=== PATIENT | female | born 1935 | race Caucasian/White ===

== ENCOUNTER 2017-04-15 07:58 | Outpatient (RCR) | payer MEDICARE | END 2017-06-16 | disposition home or self-care (01) | LOC: CARD 07:58 | PROVIDERS: ATTEND Internal Medicine Interventional Cardiology | DX: I48.91 Unspecified atrial fibrillation (principal) | CPT/HCPCS: 93270 ==

== ENCOUNTER 2017-06-04 08:46 | Day surgery (SDC) | payer MEDICARE ==
[~2017-06-04] VITALS: Ht 165.1 cm; Wt 56.7 kg
--- OUTSIDE RECORDS SUMMARY | 2017-06-04 08:54 | XMS REPORT ---
Author VILLA Lipscomb [facility] eClinicalWorks Address Unknown Phone Unavailable Care Team Providers Care Director [employer] Name Role Phone VILLA YOST CP Unavailable Allergies No Known Allergies Problems Problem Type Condition Code Onset Dates Condition Status Assessment Pain in right shoulder M25.511 Active Problem Hypothyroidism, unspecified type E03.9 Active Medications No Known Medications Procedures Procedure Coding System Code Date THERAPEUTIC EXERCISES CPT-4 24847 May 14, 2016 MANUAL THERAPY CPT-4 33817 May 14, 2016 PT EVALUATION CPT-4 35209 May 14, 2016 Results No Known Results Summary Purpose eClinicalWorks Submission
--- OUTSIDE RECORDS SUMMARY | 2017-06-04 08:54 | XMS REPORT ---
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 Active Problem Hypothyroidism, unspecified type E03.9 Active Problem Atrial fibrillation, unspecified type I48.91 Active Problem Hypercholesterolemia E78.00 Active Problem Gastroesophageal reflux disease without esophagitis K21.9 Active Problem Anxiety F41.9 Active Problem Osteoarthritis, unspecified osteoarthritis type, unspecified site M19.90 Active Problem Primary insomnia F51.01 Active Problem Essential hypertension I10 Active Assessment Functional diarrhea K59.1 Active Assessment Osteoarthritis, unspecified osteoarthritis type, unspecified site M19.90 Active Assessment Primary insomnia F51.01 Active Assessment Hypercholesterolemia E78.00 Active Assessment Anxiety F41.9 Active Assessment Atrial fibrillation, unspecified type I48.91 Active Assessment Essential hypertension I10 Active Assessment Gastroesophageal reflux disease without esophagitis K21.9 Active Medications Medication Code System Code Instructions Start Date End Date Status Dosage Ambien [facility] [address]-07 10 MG Orally Once a day 1 tablet at bedtime as needed Pramipexole Dihydrochloride [facility] [address]-56 0.5 MG Orally Once a day 1 tablet before bedtime Probiotic [facility] 6[address]28-[address]35 not defined Lorazepam [facility] [address]-06 1 MG Orally Once a day 1/2 tablet Vitamin D-3 [facility] 59326[address] 1000 UNIT Orally Once a day 1 capsule Amiodarone HCl [facility] [address]-04 200 MG Orally Once a day 1 tablet Pepcid [facility] [address]-21 40 MG Orally Once a day 1 tablet Tramadol HCl [facility] [address]-33 50 mg Orally 3 times a day not defined Magnesium [facility] [address]52-46459 500 MG Orally Once a day 1 tablet with a meal Calcium [facility] 60698-70334 600-200 MG-UNIT Orally not defined Lisinopril [facility] [address]-05 20 MG Orally BID 1 tablet Lipitor [facility] [address]-34 20 MG Orally Once a day 1 tablet Warfarin Sodium [facility] [address]-33 2.5 MG Orally 5 times a week 1/ 2 tablet Levothyroxine Sodium [facility] [address]-59 125 MCG Orally Once a day 1 tablet on an empty stomach in the morning Warfarin Sodium [facility] [address]-97 2.5 MG Orally 2 times a week 1 tablet Procedures Procedure Coding System Code Date [facility] VISIT ESTABLISHED PATIENT CPT-4 G0467 Oct 15, 2016 Office Visit, Est Pt., Level 4 CPT-4 54777 Oct 15, 2016 PROTHROMBIN TIME CPT-4 88679 Oct 15, 2016 VENIPUNCT, ROUTINE* CPT-4 33959 Oct 15, 2016 Vital Signs Date/Time: Oct 15, 2016 Cardiac Monitoring Heart Rate 72 bpm Weight 136.2 lbs Height 60 in BMI 26.60 Index Blood Pressure Diastolic 78 mmHg Blood Pressure Systolic 140 mmHg Results Name Result Date Reference Range Unit Abnormality Flag TSH W/ FREE T4 ----TSH 5.260 67492347 0.450-4.500 uIU/mL H ----T4,Free(Direct) 1.87 13119008 0.82-1.77 ng/dL H CBC ----Basos 1 60550649 % ----MCV 92 83427053 79-97 fL ----Hematocrit 43.1 80004781 34.0-46.6 % ----Eos 7 85255117 % ----MCHC 32.5 61566399 31.5-35.7 g/dL ----Monocytes 9 77129460 % ----MCH 29.9 74167297 26.6-33.0 pg ----Lymphs 13 83811152 % ----Eos (Absolute) 0.4 19748752 0.0-0.4 x10E3/uL ----WBC 5.0 56000728 3.4-10.8 x10E3/uL ----Monocytes(Absolute) 0.5 91429274 0.1-0.9 x10E3/uL ----Lymphs (Absolute) 0.7 18298375 0.7-3.1 x10E3/uL ----Hemoglobin 14.0 18305041 11.1-15.9 g/dL ----Neutrophils (Absolute) 3.5 22561477 1.4-7.0 x10E3/uL ----RBC 4.68 60113537 3.77-5.28 x10E6/uL ----Immature Grans (Abs) 0.0 19534123 0.0-0.1 x10E3/uL ----Immature Granulocytes 0 48360106 % ----Neutrophils 70 85430242 % ----Baso (Absolute) 0.0 82727372 0.0-0.2 x10E3/uL ----RDW 14.6 26188059 12.3-15.4 % ----Platelets 303 56381127 150-379 x10E3/uL INR (IN HOUSE) ----Exp date [id number] ----Lot # [id number] ----INR 2.2 20161015 1.10 - 3.30 ----PREVIOUS INR 2.3 [id number] ----CURRENT COUMADIN DOSE 2.5 2x per week / 1.25 5x per week [id number] ----NEW COUMADIN DOSE NA [id number] ROUTINE VENIPUNCTURE CMP ----Potassium, Serum 4.7 20161015 3.5-5.2 mmol/L ----Sodium, Serum 138 20161015 136-144 mmol/L ----BUN/Creatinine Ratio 10 20161015 11-26 L ----eGFR If Africn Am 50 99393008 >59 mL/min/1.73 L ----eGFR If NonAfricn Am 44 58863079 >59 mL/min/1.73 L ----Creatinine, Serum 1.18 29080956 0.57-1.00 mg/dL H ----BUN 12 20161015 8-27 mg/dL ----Glucose, Serum 75 20161015 65-99 mg/dL ----AST (SGOT) 42 20161015 0-40 IU/L H ----Globulin, Total 2.1 20161015 1.5-4.5 g/dL ----ALT (SGPT) 36 20161015 0-32 IU/L H ----A/G Ratio 2.1 20161015 1.1-2.5 ----Bilirubin, Total 0.5 20161015 0.0-1.2 mg/dL ----Alkaline Phosphatase, S 128 20161015 39-117 IU/L H ----Carbon Dioxide, Total 25 20161015 18-29 mmol/L ----Calcium, Serum 9.2 20161015 8.7-10.3 mg/dL ----Protein, Total, Serum 6.6 20161015 6.0-8.5 g/dL ----Albumin, Serum 4.5 20161015 3.5-4.7 g/dL ----Chloride, Serum 96 20161015 97-106 mmol/L L Summary Purpose eClinicalWorks Submission
--- OUTSIDE RECORDS SUMMARY | 2017-06-04 08:54 | XMS REPORT ---
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 Active Problem Hypothyroidism, unspecified type E03.9 Active Problem Atrial fibrillation, unspecified type I48.91 Active Problem Hypercholesterolemia E78.00 Active Problem Gastroesophageal reflux disease without esophagitis K21.9 Active Problem Anxiety F41.9 Active Problem Osteoarthritis, unspecified osteoarthritis type, unspecified site M19.90 Active Problem Primary insomnia F51.01 Active Problem Essential hypertension I10 Active Medications Medication Code System Code Instructions Start Date End Date Status Dosage Warfarin Sodium [facility] [address]-10 2.5 MG Orally 5 1/2 tablet Vitamin D-3 [facility] [address]43[address] 1000 UNIT Orally Once a day 1 capsule Lisinopril [facility] [address]-91 20 MG Orally BID 1 tablet Lipitor [facility] [address]-75 20 MG Orally Once a day 1 tablet Lorazepam [facility] [address]-36 1 MG Orally Once a day 1/2 tablet Pramipexole Dihydrochloride [facility] [address]-40 0.5 MG Orally Once a day 1 tablet before bedtime Calcium [facility] [address]2221 600-200 MG-UNIT Orally not defined Warfarin Sodium [facility] [address]-33 2.5 MG Orally 2 1 tablet Levoxyl [facility] [address]-47 125 MCG Orally Once a day 1 tablet Amiodarone HCl [facility] [address]-75 200 MG Orally Once a day 1 tablet Magnesium [facility] [address] 500 MG Orally Once a day 1 tablet with a meal Results No Known Results Summary Purpose eClinicalWorks Submission
--- OUTSIDE RECORDS SUMMARY | 2017-06-04 08:54 | XMS REPORT ---
Author Author RAVI CROW [facility] eClinicalWorks Address Unknown Phone Unavailable Care Team Providers Care Shaving Machine Operator Name Role Phone RAVI CROW CP Unavailable Allergies No Known Allergies Problems Problem Type Condition Code Onset Dates Condition Status Assessment Functional diarrhea K59.1 Active Problem Functional diarrhea K59.1 Active Problem Hypothyroidism, unspecified type E03.9 Active Problem Atrial fibrillation, unspecified type I48.91 Active Problem Hypercholesterolemia E78.00 Active Problem Gastroesophageal reflux disease without esophagitis K21.9 Active Problem Anxiety F41.9 Active Problem Osteoarthritis, unspecified osteoarthritis type, unspecified site M19.90 Active Problem Primary insomnia F51.01 Active Problem Essential hypertension I10 Active Medications No Known Medications Procedures Procedure Coding System Code Date [facility] NO[facility] Oct 17, 2016 TEST FOR BLOOD, FECES CPT-4 79567 Oct 17, 2016 Results Name Result Date Reference Range Unit Abnormality Flag STOOL (WBC) ----White Blood Cells (WBC), Stool Final report [id number] None Seen STOOL (C-DIFF) ----C difficile Toxin Gene CANDACE Negative [id number] Negative CULTURE, STOOL ----Salmonella/Shigella Screen Final report [id number] ----Campylobacter Culture Final report [id number] ----E coli Shiga Toxin EIA Negative [id number] Negative STOOL (O & P) ----Ova + Parasite Exam Final report [id number] Summary Purpose eClinicalWorks Submission
--- OUTSIDE RECORDS SUMMARY | 2017-06-04 08:54 | XMS REPORT ---
Author Author RAVI CROW Organization [facility] Address [address] [place] [address] Care Team Providers Care Geometry Teacher Name Role Phone ROBERTO CROWNETTE Unavailable PROBLEMS Type Condition ICD9-CM Code FUN96-EM Code Onset Dates Condition Status SNOMED Code Problem Hypothyroidism, unspecified type E03.9 Active 38334745 Problem Osteoarthritis, unspecified osteoarthritis type, unspecified site M19.90 Active 361980600 Problem Functional diarrhea K59.1 Active 56257759 Assessment Hypothyroidism, unspecified type E03.9 Oct, Active 77508629 Problem Gastroesophageal reflux disease without esophagitis K21.9 Active 542439638 Problem Atrial fibrillation, unspecified type I48.91 Active 69675085 Problem Essential hypertension I10 Active 82433532 Problem Anxiety F41.9 Active 34848058 Problem Hypercholesterolemia E78.00 Active 26382245 Problem Primary insomnia F51.01 Active 5099818 ALLERGIES Unknown Allergies SOCIAL HISTORY No smoking Hx information available PLAN OF CARE Activity Details Pending Test INR (IN HOUSE) ,Reason: VITAL SIGNS MEDICATIONS Unknown Medications RESULTS Name Result Date Reference Range INR (IN HOUSE) 2016-11-05 INR 2.8 1.10 - 3.30 PREVIOUS INR 2.2 CURRENT COUMADIN DOSE 1.25mg SSMWF/2.5mg TT NEW COUMADIN DOSE Lot # [id number] Exp date Oct 2016 PROCEDURES Procedure Date Ordered Related Diagnosis Body Site PROTHROMBIN TIME Nov 05, 2016 IMMUNIZATIONS No Known Immunizations
--- OUTSIDE RECORDS SUMMARY | 2017-06-04 08:55 | XMS REPORT ---
Author Author RAVI CROW [facility] eClinicalWorks Address Unknown Phone Unavailable Care Team Providers Care Human Resources Benefits Assistant Name Role Phone RAVI CROW Unavailable Allergies No Known Allergies Problems Problem [...] Instructions Start Date End Date Status Dosage Levothyroxine Sodium [facility] [address]-25 150 MCG Orally Once a day Oct 17, 2016 1 tablet on an empty stomach in the morning Results No Known Results Summary Purpose eClinicalWorks Submission
--- OUTSIDE RECORDS SUMMARY | 2017-06-04 08:55 | XMS REPORT ---
Author VILLA Lipscomb [facility] eClinicalWorks Address Unknown Phone Unavailable Care Team Providers Care Youth Accommodation Support Worker Name Role Phone VILLA YOST Unavailable Allergies No Known Allergies Problems Problem Type Condition Code Onset Dates Condition Status Assessment Pain in right shoulder M25.511 Active Problem Hypothyroidism, unspecified type E03.9 Active Medications No Known Medications Procedures Procedure Coding System Code Date THERAPEUTIC EXERCISES CPT-4 57344 May 19, 2016 Results No Known Results Summary Purpose eClinicalWorks Submission
[2017-06-04 09:03] VITALS: BP 138/68
[2017-06-04 10:40] VITALS: BP 134/62
--- NOTE | 2017-06-05 17:42 | PROCEDURE REPORT ---
PROCEDURE PHYSICIAN: FREDY RODRIGUEZ DATE OF PROCEDURE: 06/04/2017 IMPLANTATION OF LOOP MONITOR: ATTENDING PHYSICIAN: Dr. Elen Rodriguez. REFERRING PHYSICIAN: Dr. Angelica Beard INDICATION: Atrial fibrillation. PREOPERATIVE DIAGNOSIS: Atrial fibrillation. POSTOPERATIVE DIAGNOSIS: Atrial fibrillation, status post implantation of LINQ loop recorder. PROCEDURE DETAILS: This is an 82-year-old lady with history of atrial fibrillation in the past. She was on antiarrhythmic therapy as well as oral anticoagulation. We did a 30 day monitor, which did not show any episodes of atrial fibrillation. Therefore, we discontinued amiodarone. She was continue on oral anticoagulation. Long-term surveillance of atrial fibrillation is required. Therefore, she was consented for a implantable loop recorder. All the risks and complications were discussed at length. The patient was draped and prepped in usual sterile fashion. Local anesthesia was lidocaine, which was given in the substernal area close to the 4th intercostal space. LINQ loop monitor was implanted according to the protocol. Steri-Strips were placed at the end of the procedure. There was no complication and the patient tolerated the procedure well. The device was interrogation with voltage of 0.66 mV. ANESTHESIA: Lidocaine. COMPLICATIONS: None. CONTRAST/FLUOROSCOPY: None. CONCLUSION: 1. 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 2. No complication and the patient tolerated the procedure well. Job ID: [id number] Dictated Date: 06/04/2017 14:11:12 Fire Control System Installer Date: 06/05/2017 17:33:51 / tbk
== END 2017-06-04 10:43 | disposition home or self-care (01) ==
LOC: CATH 08:46
PROVIDERS: ATTEND Internal Medicine Interventional Cardiology
DX: I48.91 Unspecified atrial fibrillation (principal); Z98.890 Other specified postprocedural states; I10 Essential (primary) hypertension; E78.5 Hyperlipidemia, unspecified; Z79.01 Long term (current) use of anticoagulants; Z79.899 Other long term (current) drug therapy
CPT/HCPCS: 33282

== ENCOUNTER 2017-10-10 11:11 | Emergency (ER) | payer MEDICARE ==
[~2017-10-10] VITALS: Ht 152.4 cm; Wt 56.7 kg
--- OUTSIDE RECORDS SUMMARY | 2017-10-10 11:18 | XMS REPORT ---
Author Author GRUPO LANDRUM Organization [facility] Address [address] [place] [address] Care Team Providers Care Liquid Loader Name Role Phone GRUPO LANDRUM Unavailable PROBLEMS Type Condition ICD9-CM Code [id number] Code Onset Dates Condition Status SNOMED Code Problem Persistent atrial fibrillation I48.1 Active 238358095 Problem H/O mitral valve replacement Z95.2 Active 5501363253270 Problem Acquired hypothyroidism E03.9 Active 231157481 Problem Acquired absence of kidney Z90.5 Active 074362885 Problem Hypercholesterolemia E78.00 Active 51841552 Problem Hyperlipidemia, unspecified hyperlipidemia type E78.5 Active 09932660 Problem Hypothyroidism, unspecified type E03.9 Active 03298163 Problem [facility] current use of anticoagulant Z79.01 Active 916201331 Problem Chronic diarrhea K52.9 Active 115080061 Problem Macular degeneration (senile) of retina H35.30 Active 479827246 Problem Encounter for dental examination Z01.20 Active 794468127 Problem Gastroesophageal reflux disease without esophagitis K21.9 Active 921044050 Problem Essential hypertension I10 Active 73880157 Problem Atrial fibrillation, unspecified type I48.91 Active 88793731 Problem Osteoarthritis, unspecified osteoarthritis type, unspecified site M19.90 Active 465685633 Problem Functional diarrhea K59.1 Active 66438123 Problem CKD (chronic kidney disease) stage 3, GFR 30-59 ml/min N18.3 Active 249107349 Problem Primary insomnia F51.01 Active 4488353 Problem Osteopenia of multiple sites M85.89 Active 322158925 Problem Anxiety F41.9 Active 24350591 Problem 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 Active 942665996 ALLERGIES No Information SOCIAL HISTORY Never Assessed PLAN OF CARE VITAL SIGNS MEDICATIONS Unknown Medications RESULTS Name Result Date Reference Range LIPID PANEL 2017-04-29 Cholesterol, Total 187 100-199 Triglycerides 68 0-149 HDL Cholesterol 70 >39 VLDL Cholesterol Papo 14 5-40 LDL Cholesterol Calc 103 0-99 Comment: INR (IN HOUSE) 2017-04-29 INR 1.9 1.10 - 3.30 PREVIOUS INR 2.9 CURRENT COUMADIN DOSE 2.5mg SMTW/1.25mg TFS NEW COUMADIN DOSE Lot # [id number] Exp date 23 Dec 2017 PROCEDURES Procedure Date Ordered Result Body Site PROTHROMBIN TIME April 29, 2017 LAB NOT BILLED BY [facility] April 29, 2017 VENIPUNCT, ROUTINE* April 29, 2017 IMMUNIZATIONS No Known Immunizations MEDICAL (GENERAL) HISTORY Type Description Date Medical History Atrial fibrillation Medical History Hypertension Medical History Heart disease Medical History Joint Replacement Medical History Rheaumatic fever Medical History Thyroid problems Medical History Bisphosphonates Medical History Arthritis Medical History Kidney Disease Medical History GERD Surgical History repaired heart valve Surgical History Left kidney removed Surgical History knee repair x2 Surgical History cholecystectomy Surgical History Partial hysterectomy Surgical History cataract removal Surgical History Heart monitor for a -fib Hospitalization History surgeries Hospitalization History A-Fib 2008 Hospitalization History GERD 05/2016
--- OUTSIDE RECORDS SUMMARY | 2017-10-10 11:19 | XMS REPORT ---
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 209758588 Problem Acquired hypothyroidism E03.9 Active 257874512 Problem H/O mitral valve replacement Z95.2 Active 4597278001327 Problem Hyperlipidemia, unspecified hyperlipidemia type E78.5 Active 53012047 Problem Hypothyroidism, unspecified type E03.9 Active 54388750 Problem Macular degeneration (senile) of retina H35.30 Active 153809329 Problem Chronic diarrhea K52.9 Active 583494200 Problem Persistent atrial fibrillation I48.1 Active 027455585 Problem Encounter for dental examination Z01.20 Active 595244986 Problem 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 Active 876096070 Problem Gastroesophageal reflux disease without esophagitis K21.9 Active 699636111 Problem Anxiety F41.9 Active 50385058 Problem Atrial fibrillation, unspecified type I48.91 Active 85070030 Problem Osteoarthritis, unspecified osteoarthritis type, unspecified site M19.90 Active 320754229 Problem Essential hypertension I10 Active 31202360 Problem Hypercholesterolemia E78.00 Active 10221182 Problem Functional diarrhea K59.1 Active 06213900 Problem CKD (chronic kidney disease) stage 3, GFR 30-59 ml/min N18.3 Active 861493801 Problem Primary insomnia F51.01 Active 0674080 Problem Osteopenia of multiple sites M85.89 Active 560251610 ALLERGIES Unknown Allergies SOCIAL HISTORY No smoking Hx information available PLAN OF CARE VITAL SIGNS MEDICATIONS Unknown Medications RESULTS Name Result Date Reference Range INR (IN HOUSE) 2016-11-28 INR 2.2 1.10 - 3.30 PREVIOUS INR 2.8 CURRENT COUMADIN DOSE 1.25 mg 5 days, 5 mg 2 days NEW COUMADIN DOSE Lot # [id number] Exp date 09/2017 PROCEDURES No Known procedures IMMUNIZATIONS No Known Immunizations
--- OUTSIDE RECORDS SUMMARY | 2017-10-10 11:21 | XMS REPORT ---
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 163934710 Problem Acquired hypothyroidism E03.9 Active 082495605 Problem H/O mitral valve replacement Z95.2 Active 4681078608833 Problem Hyperlipidemia, unspecified hyperlipidemia type E78.5 Active 35876906 Problem Hypothyroidism, unspecified type E03.9 Active 16287012 Problem Macular degeneration (senile) of retina H35.30 Active 447734546 Problem Chronic diarrhea K52.9 Active 178800199 Problem Persistent atrial fibrillation I48.1 Active 794586283 Problem Encounter for dental examination Z01.20 Active 616141493 Problem 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 786649413 Problem Gastroesophageal reflux disease without esophagitis K21.9 Active 199926066 Problem Anxiety F41.9 Active 68916093 Problem Atrial fibrillation, unspecified type I48.91 Active 26578806 Problem Osteoarthritis, unspecified osteoarthritis type, unspecified site M19.90 Active 383717544 Problem Essential hypertension I10 Active 55991812 Problem Hypercholesterolemia E78.00 Active 34876368 Problem Functional diarrhea K59.1 Active 41948007 Problem CKD (chronic kidney disease) stage 3, GFR 30-59 ml/min N18.3 Active 057621944 Problem Primary insomnia F51.01 Active 1159132 Problem Osteopenia of multiple sites M85.89 Active 333335033 ALLERGIES Substance Reaction Event Type Date Status Budesonide ER Unknown Drug Allergy Oct, Active Vicodin Unknown Drug Allergy Oct, Active Flexeril Unknown Drug Allergy Oct, Active Codeine Sulfate Unknown Drug Allergy Oct, Active SOCIAL HISTORY No smoking Hx information available PLAN OF CARE Activity Details Follow Up morgan Reason:restorative VITAL SIGNS Blood pressure systolic 140 mmHg 2016-11-18 Blood pressure diastolic 72 mmHg 2016-11-18 MEDICATIONS Medication Instructions Dosage Frequency Start Date End Date Duration Status Magnesium 500 MG Orally Once a day 1 tablet with a meal 24h Active Warfarin Sodium 2.5 MG Orally 2 times a week 1 tablet Active Probiotic Active Warfarin Sodium 2.5 MG Orally 5 times a week 1/2 tablet Active Pramipexole Dihydrochloride 0.5 MG Orally Once a day 1 tablet before bedtime 24h Active Lorazepam 1 MG Orally Once a day 1/2 tablet 24h Active Tramadol HCl 50 mg Orally 3 times a day 8h Active Vitamin D-3 1000 UNIT Orally Once a day 1 capsule 24h Active Lipitor 20 MG Orally Once a day 1 tablet 24h Active Lisinopril 20 MG Orally BID 1 tablet 12h Active Ambien 10 MG Orally Once a day 1 tablet at bedtime as needed 24h Active Pepcid 40 MG Orally Once a day 1 tablet 24h Active Calcium 600-200 MG-UNIT Active Amiodarone HCl 200 MG Orally Once a day 1 tablet 24h Active Levothyroxine Sodium 150 MCG Orally Once a day 1 tablet on an empty stomach in the morning 24h Sep, 30 day(s) Active RESULTS No Results PROCEDURES Procedure Date Ordered Related Diagnosis Body Site COMP ORAL EVALUATION - NEW/EST PT Nov 18, 2016 Periodontal maint procedures Nov 18, 2016 TOPICAL FLUORIDE VARNISH Nov 18, 2016 BITEWINGS - THREE FILMS Nov 18, 2016 IMMUNIZATIONS No Known Immunizations
--- OUTSIDE RECORDS SUMMARY | 2017-10-10 11:24 | XMS REPORT ---
Author Author GRUPO LANDRUM Organization [facility] Address [address] [place] [address] Care Team Providers Care Long Wall Mining Machine Helper Name Role Phone GRUPO LANDRUM Unavailable PROBLEMS Type Condition ICD9-CM Code [id number] Code Onset Dates Condition Status SNOMED Code Problem Persistent atrial fibrillation I48.1 Active 994229489 Problem H/O mitral valve replacement Z95.2 Active 5507056556957 Problem Acquired hypothyroidism E03.9 Active 379914579 Problem Acquired absence of kidney Z90.5 Active 165628765 Problem Hypercholesterolemia E78.00 Active 64551763 Problem Hyperlipidemia, unspecified hyperlipidemia type E78.5 Active 20967303 Problem Hypothyroidism, unspecified type E03.9 Active 65288401 Problem assisted current use of anticoagulant Z79.01 Active 042174210 Problem Chronic diarrhea K52.9 Active 401032907 Problem Macular degeneration (senile) of retina H35.30 Active 597902885 Problem Encounter for dental examination Z01.20 Active 792436738 Problem Gastroesophageal reflux disease without esophagitis K21.9 Active 249745281 Problem Essential hypertension I10 Active 61040730 Problem Atrial fibrillation, unspecified type I48.91 Active 55327564 Problem Osteoarthritis, unspecified osteoarthritis type, unspecified site M19.90 Active 416471360 Problem Functional diarrhea K59.1 Active 32401061 Problem CKD (chronic kidney disease) stage 3, GFR 30-59 ml/min N18.3 Active 057813683 Problem Primary insomnia F51.01 Active 2734554 Problem Osteopenia of multiple sites M85.89 Active 207202650 Problem Anxiety F41.9 Active 82666559 Problem 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 Active 878892782 ALLERGIES Substance Reaction Event Type Date Status Budesonide ER nausea Drug Allergy Dec, Active Vicodin nausea Drug Allergy Dec, Active Flexeril headache Drug Allergy Dec, Active Codeine Sulfate nausea Drug Allergy Dec, Active SOCIAL HISTORY Never Assessed PLAN OF CARE Activity Details Follow Up 3 Months with Chirag Reason: VITAL SIGNS Height 60 in 2016-12-31 Weight 128 lbs 2016-12-31 Temperature 97.6 degrees Fahrenheit 2016-12-31 Heart Rate 80 bpm 2016-12-31 Respiratory Rate 16 2016-12-31 BMI 25.00 kg/m2 2016-12-31 Blood pressure systolic 110 mmHg 2016-12-31 Blood pressure diastolic 70 mmHg 2016-12-31 MEDICATIONS Medication Instructions Dosage Frequency Start Date End Date Duration Status Pramipexole Dihydrochloride 0.5 MG Orally Once a day 1 tablet before bedtime 24h Active Tramadol HCl 50 mg Orally 3 times a day 8h Active Warfarin Sodium 2.5 MG Orally 2 times a week 1 tablet Active Lisinopril 20 MG Orally BID 1 tablet 12h Active Probiotic Active Lipitor 20 MG Orally Once a day 1 tablet 24h Active Cranberry 425 MG Active Pepcid 40 MG Orally Once a day 1 tablet 24h Active Lorazepam 1 MG Orally Once a day 1/2 tablet 24h Active Ambien 10 MG Orally Once a day 1 tablet at bedtime as needed 24h Active Calcium 600-200 MG-UNIT Active Levothyroxine Sodium 125 MCG Orally Once a day 1 tablet on an empty stomach in the morning 24h Sep, Active Warfarin Sodium 2.5 MG Orally 5 times a week 1/2 tablet Active Vitamin D-3 1000 UNIT Orally Once a day 2 capsule 24h Active Amiodarone HCl 200 MG Orally Once a day 1 tablet 24h Active Magnesium 250 MG Orally Once a day 1/2 tablet with a meal 24h Active Norvasc 5 MG Orally Once a day 1 tablet 24h Active RESULTS Name Result Date Reference Range PT/INR 2016-12-31 INR 2.8 0.8-1.2 Prothrombin Time 29.0 9.1-12.0 THYROID ANALYZER 2016-12-31 TSH 2.140 0.450-4.500 PROCEDURES Procedure Date Ordered Result Body Site PROTHROMBIN TIME Dec 31, 2016 LAB NOT BILLED BY [facility] Dec 31, 2016 [facility] VISIT ESTABLISHED PATIENT Dec 31, 2016 DESTIN, ROUTINE* Dec 31, 2016 IMMUNIZATIONS No Known Immunizations MEDICAL (GENERAL) HISTORY [...] History Partial hysterectomy Surgical History cataract removal Hospitalization History surgeries Hospitalization History A-Fib 2008 Hospitalization History GERD 05/2016
--- OUTSIDE RECORDS SUMMARY | 2017-10-10 11:24 | XMS REPORT ---
Author Author GRUPO LANDRUM Organization [facility] Address [address] [place] [address] Care Team Providers Care Chemical Educator Name Role Phone GRPUO LANDRUM Unavailable PROBLEMS Type Condition ICD9-CM Code [id number] Code Onset Dates Condition Status SNOMED Code Problem Persistent atrial fibrillation I48.1 Active 800975587 Problem H/O mitral valve replacement Z95.2 Active 2126044819760 Problem Acquired hypothyroidism E03.9 Active 082005565 Problem Acquired absence of kidney Z90.5 Active 136989651 Problem Hypercholesterolemia E78.00 Active 66717840 Problem Hyperlipidemia, unspecified hyperlipidemia type E78.5 Active 71332390 Problem Hypothyroidism, unspecified type E03.9 Active 73857565 Problem snf current use of anticoagulant Z79.01 Active 161276764 Problem Chronic diarrhea K52.9 Active 125140681 Problem Macular degeneration (senile) of retina H35.30 Active 717072825 Problem Encounter for dental examination Z01.20 Active 049042230 Problem Gastroesophageal reflux disease without esophagitis K21.9 Active 860760333 Problem Essential hypertension I10 Active 79651662 Problem Atrial fibrillation, unspecified type I48.91 Active 33955587 Problem Osteoarthritis, unspecified osteoarthritis type, unspecified site M19.90 Active 197947249 Problem Functional diarrhea K59.1 Active 02383225 Problem CKD (chronic kidney disease) stage 3, GFR 30-59 ml/min N18.3 Active 503898050 Problem Primary insomnia F51.01 Active 9623347 Problem Osteopenia of multiple sites M85.89 Active 060976034 Problem Anxiety F41.9 Active 25928388 Problem 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
--- OUTSIDE RECORDS SUMMARY | 2017-10-10 11:24 | XMS REPORT ---
Author Author GRUPO BEARD Organization [facility] Address [address] [place] [address] Care Team Providers Care Imagery Intelligence Name Role Phone GRUPO BEARD Unavailable PROBLEMS Type Condition ICD9-CM Code [id number] Code Onset Dates Condition Status SNOMED Code Problem Persistent atrial fibrillation I48.1 Active 644332471 Problem H/O mitral valve replacement Z95.2 Active 1723962903733 Problem Acquired hypothyroidism E03.9 Active 715084824 Problem Acquired absence of kidney Z90.5 Active 113615615 Problem Hypercholesterolemia E78.00 Active 72456807 Problem Hyperlipidemia, unspecified hyperlipidemia type E78.5 Active 29870004 Problem Hypothyroidism, unspecified type E03.9 Active 87547227 Problem [facility] current use of anticoagulant Z79.01 Active 329340960 Problem Chronic diarrhea K52.9 Active 669832026 Problem Macular degeneration (senile) of retina H35.30 Active 293455943 Problem Encounter for dental examination Z01.20 Active 759283468 Problem Gastroesophageal reflux disease without esophagitis K21.9 Active 808637374 Problem Essential hypertension I10 Active 13375866 Problem Atrial fibrillation, unspecified type I48.91 Active 00475764 Problem Osteoarthritis, unspecified osteoarthritis type, unspecified site M19.90 Active 336214178 Problem Functional diarrhea K59.1 Active 07723775 Problem CKD (chronic kidney disease) stage 3, GFR 30-59 ml/min N18.3 Active 612820017 Problem Primary insomnia F51.01 Active 7611277 Problem Osteopenia of multiple sites M85.89 Active 443149582 Problem Anxiety F41.9 Active 15127867 Problem 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 Active 620944663 ALLERGIES Substance Reaction Event Type Date Status Budesonide ER nausea Drug Allergy March, Active Vicodin nausea Drug Allergy March, Active Flexeril headache Drug Allergy March, Active Codeine Sulfate nausea Drug Allergy March, Active SOCIAL HISTORY Never Assessed PLAN OF CARE Activity Details Follow Up [address] Beard f/u [facility] Reason: VITAL SIGNS Height 60 in 2017-04-15 Weight 126 lbs 2017-04-15 Temperature 97.8 degrees Fahrenheit 2017-04-15 Heart Rate 52 bpm 2017-04-15 Respiratory Rate 18 2017-04-15 BMI 24.61 kg/m2 2017-04-15 Blood pressure systolic 130 mmHg 2017-04-15 Blood pressure diastolic 80 mmHg 2017-04-15 MEDICATIONS Medication Instructions Dosage Frequency Start Date End Date Duration Status Magnesium 250 MG Orally Once a day 1/2 tablet with a meal 24h Active Lisinopril 20 MG Orally BID 1 tablet 12h Active Warfarin Sodium 2.5 MG Orally 4 times a week 1 tablet Active Calcium 600-200 MG-UNIT Active Probiotic Active Ambien 10 MG Orally Once a day 1 tablet at bedtime as needed 24h Active Lorazepam 1 MG Orally Once a day 1/2 tablet 24h Active Pepcid 40 MG Orally Once a day 1 tablet 24h Active Lipitor 20 mg Orally Once a day 1 tablet 24h Active Cranberry 425 MG Active Levothyroxine Sodium 125 mcg Orally Once a day 1 tablet on an empty stomach in the morning 24h 25 Sep, 2016 Active Warfarin Sodium 2.5 MG Orally 3 times a week 1/2 tablet Active Vitamin D-3 1000 UNIT Orally Once a day 2 capsule 24h Active Tramadol HCl 50 mg Orally 3 times a day as needed 1 tablet as needed Jan, Active Pramipexole Dihydrochloride 0.5 MG Orally Once a day 1 tablet before bedtime 24h Active Amiodarone HCl 200 mg Orally Once a day 1 tablet 24h 30 Active RESULTS No Results PROCEDURES Procedure Date Ordered Result Body Site [facility] VISIT ESTABLISHED PATIENT April 15, 2017 IMMUNIZATIONS No Known Immunizations MEDICAL (GENERAL) [...]
--- OUTSIDE RECORDS SUMMARY | 2017-10-10 11:25 | XMS REPORT ---
Author Author GRUPO LANDRUM Organization [facility] Address [address] [place] [address] Care Team Providers Care Tap And Die Maker Technician Name Role Phone GRUPO LANDRUM Unavailable PROBLEMS Type Condition ICD9-CM Code [id number] Code Onset Dates Condition Status SNOMED Code Problem Persistent atrial fibrillation I48.1 Active 177156562 Problem H/O mitral valve replacement Z95.2 Active 8427191235820 Problem Acquired hypothyroidism E03.9 Active 444881754 Problem Acquired absence of kidney Z90.5 Active 109834682 Problem Hypercholesterolemia E78.00 Active 87818531 Problem Hyperlipidemia, unspecified hyperlipidemia type E78.5 Active 19412702 Problem Hypothyroidism, unspecified type E03.9 Active 39559851 Problem detention current use of anticoagulant Z79.01 Active 076365226 Problem Chronic diarrhea K52.9 Active 279218280 Problem Macular degeneration (senile) of retina H35.30 Active 725503945 Problem Encounter for dental examination Z01.20 Active 167191986 Problem Gastroesophageal reflux disease without esophagitis K21.9 Active 471466824 Problem Essential hypertension I10 Active 69659526 Problem Atrial fibrillation, unspecified type I48.91 Active 99512164 Problem Osteoarthritis, unspecified osteoarthritis type, unspecified site M19.90 Active 276337845 Problem Functional diarrhea K59.1 Active 59229933 Problem CKD (chronic kidney disease) stage 3, GFR 30-59 ml/min N18.3 Active 269540700 Problem Primary insomnia F51.01 Active 6058014 Problem Osteopenia of multiple sites M85.89 Active 697693428 Problem Anxiety F41.9 Active 22858662 Problem 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
--- OUTSIDE RECORDS SUMMARY | 2017-10-10 11:25 | XMS REPORT ---
Author Author GRUPO LANDRUM Organization [facility] Address [address] [place] [address] Care Team Providers Care Pharmacist Helper Name Role Phone GRUPO LANDRUM Unavailable PROBLEMS Type Condition ICD9-CM Code [id number] Code Onset Dates Condition Status SNOMED Code Problem Persistent atrial fibrillation I48.1 Active 503440567 Problem H/O mitral valve replacement Z95.2 Active 9117815125996 Problem Acquired hypothyroidism E03.9 Active 363729626 Problem Acquired absence of kidney Z90.5 Active 978310703 Problem Hypercholesterolemia E78.00 Active 33532945 Problem Hyperlipidemia, unspecified hyperlipidemia type E78.5 Active 69833083 Problem Hypothyroidism, unspecified type E03.9 Active 87177246 Problem correction current use of anticoagulant Z79.01 Active 045443037 Problem Chronic diarrhea K52.9 Active 189567794 Problem Macular degeneration (senile) of retina H35.30 Active 161254757 Problem Encounter for dental examination Z01.20 Active 923050185 Problem Gastroesophageal reflux disease without esophagitis K21.9 Active 140177461 Problem Essential hypertension I10 Active 56826843 Problem Atrial fibrillation, unspecified type I48.91 Active 51452062 Problem Osteoarthritis, unspecified osteoarthritis type, unspecified site M19.90 Active 964267029 Problem Functional diarrhea K59.1 Active 58652007 Problem CKD (chronic kidney disease) stage 3, GFR 30-59 ml/min N18.3 Active 808128738 Problem Primary insomnia F51.01 Active 9131514 Problem Osteopenia of multiple sites M85.89 Active 348555596 Problem Anxiety F41.9 Active 90929174 Problem 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
[2017-10-10] MEDS ORDERED: LORA1TAB (11:39)
[2017-10-10] MEDS ORDERED: WARF2.5T82 (11:39)
[2017-10-10] MEDS ORDERED: ATOR20TA66 (11:39)
[2017-10-10] MEDS ORDERED: LISI-552 (11:39)
[2017-10-10] MEDS ORDERED: LEVO125T6 (11:39)
[2017-10-10] MEDS ORDERED: [UNRECOGNIZED DRUG - OTHER] (11:56)
[2017-10-10 12:05] LABS: BASOPHILS % (AUTO) 1 % (0-10); EOSINOPHILS # (AUTO) 0.4 10^3/uL (0.0-0.3); EOSINOPHILS % (AUTO) 8 % (0-10); LYMPHOCYTES # (AUTO) 0.8 X 10^3 (1.0-4.0); LYMPHOCYTES % (AUTO) 17 % (12-44); MEAN CORPUSCULAR HEMOGLOBIN 31 PG (25-34); MEAN CORPUSCULAR HGB CONC 34 G/DL (32-36); MEAN CORPUSCULAR VOLUME 92 FL (80-99); MEAN PLATELET VOLUME 9.8 FL (7.4-10.4); MONOCYTES # (AUTO) 0.5 X 10^3 (0.0-1.0); MONOCYTES % (AUTO) 10 % (0-12); NEUTROPHILS # (AUTO) 3.2 X 10^3 (1.8-7.8); NEUTROPHILS % (AUTO) 64 % (42-75); PLATELET COUNT 261 10^3/uL (130-400); RED BLOOD COUNT 4.42 10^6/uL (4.35-5.85); RED CELL DISTRIBUTION WIDTH 14.6 % (10.0-14.5); WHITE BLOOD COUNT 4.9 10^3/uL (4.3-11.0)
--- NOTE | 2017-10-10 12:08 | Diagnostic Imaging Report ---
INDICATION: Chest pain. COMPARISON: 05/14/2009. FINDINGS: Visible lungs are clear. Please note that the posterior lower lobes are poorly evaluated by portable radiography. No pleural effusion or pneumothorax. Heart is enlarged with aortic valve replacement. Stable configuration of sternal wires. IMPRESSION: No acute cardiopulmonary process by portable radiography. Dictated by: Dictated on workstation # [id number]
[2017-10-10 12:10] LABS: INR 1.6 (0.8-1.4); PROTHROMBIN TIME PATIENT 19.5 SEC (12.2-14.7)
[2017-10-10 12:19] LABS: BILIRUBIN,URINE NEGATIVE (NEGATIVE); KETONES,URINE NEGATIVE (NEGATIVE); LEUKOCYTE ESTERASE ,URINE 3+ (NEGATIVE); NITRITE,URINE NEGATIVE (NEGATIVE); PH,URINE 8 (5-9); PROTEIN,URINE NEGATIVE (NEGATIVE); UROBILINOGEN,URINE NORMAL (NORMAL)
[2017-10-10 12:24] LABS: ALANINE AMINOTRANSFERASE 20 U/L (0-55); ANION GAP 10 MMOL/L (5-14); ASPARTATE AMINO TRANSFERASE 27 U/L (5-34); BILIRUBIN,TOTAL 0.6 MG/DL (0.1-1.0); BLOOD UREA NITROGEN 17 MG/DL (7-18); BUN/CREATININE RATIO 17; CALCIUM 8.8 MG/DL (8.5-10.1); CARBON DIOXIDE 26 MMOL/L (21-32); CHLORIDE 104 MMOL/L (98-107); GFR ESTIMATED 53; GLUCOSE 96 MG/DL (70-105); MAGNESIUM 2.3 MG/DL (1.8-2.4); POTASSIUM 4.3 MMOL/L (3.6-5.0); SODIUM 140 MMOL/L (135-145); TOTAL PROTEIN 6.5 GM/DL (6.4-8.2)
[2017-10-10 12:30] LABS: SQUAMOUS EPITHELIAL CELL,UR RARE /HPF; WBC,URINE 0-2 /HPF
[2017-10-10 12:45] LABS: MYOGLOBIN SERUM 49.8 NG/ML (10.0-92.0)
[2017-10-10 12:48] LABS: THYROID STIMULATING HORMONE 1.3 UIU/ML (0.35-4.94)
--- NOTE | 2017-10-10 12:53 | Diagnostic Imaging Report ---
PROCEDURE: CT head without contrast. TECHNIQUE: Multiple contiguous axial images were obtained through the brain without the use of intravenous contrast. INDICATION: Fall with head trauma. COMPARISON: None available. FINDINGS: Age-appropriate global atrophy. No acute hyperdense hemorrhage or space-occupying mass. No hydrocephalus or midline shift. Periventricular white matter hypoattenuation is likely due to chronic microvascular ischemic disease. No evidence of territorial infarct. No acute calvarial fracture. Orbits are grossly normal. Paranasal sinuses and mastoid air cells are clear. IMPRESSION: 1. No acute intracranial process by CT. 2. No acute or healing skull fracture. Dictated by: Dictated on workstation # [id number]
--- NOTE | 2017-10-10 13:12 | ED General ---
General Chief Complaint: Cardiac/General Problems Stated Complaint: IRRATIC PULSE, A FIB Nursing Triage Note: AMB TO ROOM REPORTS WOKE UP THIS AM FEELING LIKE SHE MAY BEEN IN A FIB. Nursing Sepsis Screen: No Definite Risk Source of Information: Patient Exam Limitations: No Limitations History of Present Illness Time Seen by Provider: 11:43 Initial Comments This pleasant 82-year-old woman presents to the emergency room with complaints of lightheadedness, generalized weakness, and heaviness in her chest. She felt like her heart rate was irregular and she was concerned that she be be back in atrial fibrillation. She is anticoagulated on Coumadin. She has a notable bruise over the left eye which she states is from a fall one week ago. She denies any symptoms of concussion. She reports an episode of diarrhea this morning. Her functional manager is Dr. Rodriguez. She denies any cough, shortness of breath, fever, vomiting, or other symptoms of acute illness. Allergies and Home Medications Allergies Coded Allergies: acetaminophen (Verified Allergy, Unknown, 10/10/17) hydrocodone (Verified Allergy, Unknown, 10/10/17) Uncoded Allergies: SULFA (Allergy, Unknown, 10/10/17) Home Medications Atorvastatin Calcium 20 Mg Tablet, (Reported) Levothyroxine Sodium 125 Mcg Tablet, (Reported) Lisinopril 20 Mg Tablet, (Reported) Lorazepam 1 Mg Tablet, (Reported) Warfarin Sodium 2.5 Mg Tablet, (Reported) [Warfin 1.5 ] , (Reported) Constitutional: see HPI EENTM: no symptoms reported Respiratory: no symptoms reported Cardiovascular: see HPI Gastrointestinal: see HPI Genitourinary: no symptoms reported : No Musculoskeletal: no symptoms reported Skin: see HPI Psychiatric/Neurological: No Symptoms Reported Hematologic/Lymphatic: See HPI Immunological/Allergic: no symptoms reported Past Qubpvpn-[id number]-Enkdrh Hx Patient Social History Alcohol Use: Denies Use Recreational Drug Use: No Smoking Status: Never a Smoker Recent Foreign Travel: No Contact w/Someone Who Travel: No Recent Infectious Disease Expo: No Surgeries History of Surgeries: Yes ( L KIDNEY REMOVED) Surgeries: Hysterectomy, Orthopedic, Renal (left nephrectomy), Valve Replacement (mitral valve repair) Respiratory History of Respiratory Disorde: No Cardiovascular History of Cardiac Disorders: Yes (MITRIAL VALVE REPLACENT/IMPLANT THAT MONITOR A FIB) Cardiac Disorders: Atrial Fibrillation (paroxysmal), High Cholesterol, Hypertension, Valvular Heart Disease Neurological History of Neurological Disord: No Reproductive System : 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 Genitourinary History of Genitourinary Disor: No Gastrointestinal History of Gastrointestinal Di: Yes Gastrointestinal Disorders: Gastroesophageal Reflux Musculoskeletal History of Musculoskeletal Dis: No Endocrine History of Endocrine Disorders: Yes Endocrine Disorders: Hypothyroidsim Cancer History of Cancer: Yes Cancer: Kidney Psychosocial History of Psychiatric Problem: No Integumentary History of Skin or Integumenta: No Physical Exam Vital Signs Vital Sign - Last 12Hours 10/10/17 10/10/17 11:11 15:25 Temp 98.0 Pulse 62 Resp 18 B/P (MAP) 168/87 Pulse Ox 100 O2 Delivery Room Air Capillary Refill : Less Than 3 Seconds General Appearance: No Apparent Distress, WD/WN, Thin HEENT: PERRL/EOMI, Normal ENT Inspection, Pharynx Normal, Other (ecchymosis of the left brow and left upper eyelid) Neck: Normal Inspection, Supple, No Carotid Bruit Respiratory: Lungs Clear, Normal Breath Sounds, No Accessory Muscle Use, No Respiratory Distress Cardiovascular: No Edema, No Murmur, Irregularly Irregular Gastrointestinal: Normal Bowel Sounds, Non Tender, Soft Extremity: Normal Inspection, No Pedal Edema Neurologic/Psychiatric: Alert, Oriented x3, No Motor/Sensory Deficits, Normal Mood/Affect, molder vacuum II-XII Norm as Tested Skin: Normal Color, Warm/Dry Progress/Results/Core Measures Suspected Sepsis Recent Fever Within 48 Hours: No Infection Criteria Present: None New/Unexplained Altered Menta: No Sepsis Screen: No Definite Risk Sepsis Diagnosis: SIRS Temperature:98.0 Pulse: 62 Respiratory Rate: Laboratory Tests 10/10/17 11:20: White Blood Count 4.9 Blood Pressure 168 /87 Mean: 114 Laboratory Tests 10/10/17 11:20: Creatinine 1.00, INR Comment 1.6H, Platelet Count 261, Total Bilirubin 0.6 Results/Orders Lab Results Laboratory Tests Test 10/10/17 11:20 10/10/17 12:03 10/10/17 14:20 Range/Units White Blood Count 4.9 4.3-11.0 10^3/uL Red Blood Count 4.42 4.35-5.85 10^6/uL Hemoglobin 13.6 11.5-16.0 G/DL Hematocrit 41 35-52 % Mean Corpuscular Volume 92 80-99 FL Mean Corpuscular Hemoglobin 31 25-34 PG Mean Corpuscular Hemoglobin Concent 34 32-36 G/DL Red Cell Distribution Width 14.6 H 10.0-14.5 % Platelet Count 261 130-400 10^3/uL Mean Platelet Volume 9.8 7.4-10.4 FL Neutrophils (%) (Auto) 64 42-75 % Lymphocytes (%) (Auto) 17 12-44 % Monocytes (%) (Auto) 10 0-12 % Eosinophils (%) (Auto) 8 0-10 % Basophils (%) (Auto) 1 0-10 % Neutrophils # (Auto) 3.2 1.8-7.8 X 10^3 Lymphocytes # (Auto) 0.8 L 1.0-4.0 X 10^3 Monocytes # (Auto) 0.5 0.0-1.0 X 10^3 Eosinophils # (Auto) 0.4 H 0.0-0.3 10^3/uL Basophils # (Auto) 0.0 0.0-0.1 10^3/uL Prothrombin Time 19.5 H 12.2-14.7 SEC INR Comment 1.6 H 0.8-1.4 Activated Partial Thromboplast Time 50 H 24-35 SEC Sodium Level 140 135-145 MMOL/L Potassium Level 4.3 3.6-5.0 MMOL/L Chloride Level 104 98-107 MMOL/L Carbon Dioxide Level 26 21-32 MMOL/L Anion Gap 10 5-14 MMOL/L Blood Urea Nitrogen 17 7-18 MG/DL Creatinine 1.00 0.60-1.30 MG/DL Estimat Glomerular Filtration Rate 53 BUN/Creatinine Ratio 17 Glucose Level 96 70-105 MG/DL Calcium Level 8.8 8.5-10.1 MG/DL Magnesium Level 2.3 1.8-2.4 MG/DL Total Bilirubin 0.6 0.1-1.0 MG/DL Aspartate Amino Transf (AST/SGOT) 27 5-34 U/L Alanine Aminotransferase (ALT/SGPT) 20 0-55 U/L Alkaline Phosphatase 85 40-136 U/L Myoglobin 49.8 10.0-92.0 NG/ML Troponin I < 0.30 < 0.30 <0.30 NG/ML B-Type Natriuretic Peptide 136.7 H <100.0 PG/ML Total Protein 6.5 6.4-8.2 GM/DL Albumin 4.0 3.2-4.5 GM/DL Thyroid Stimulating Hormone (TSH) 1.30 0.35-4.94 UIU/ML Free Thyroxine 1.53 H 0.70-1.48 NG/DL Urine Color YELLOW Urine Clarity SLIGHTLY CLOUDY Urine pH 8 5-9 Urine Specific [place] 1.015 L 1.016-1.022 Urine Protein NEGATIVE NEGATIVE Urine Glucose (UA) NEGATIVE NEGATIVE Urine Ketones NEGATIVE NEGATIVE Urine Nitrite NEGATIVE NEGATIVE Urine Bilirubin NEGATIVE NEGATIVE Urine Urobilinogen NORMAL NORMAL MG/DL Urine Leukocyte Esterase 3+ H NEGATIVE Urine RBC (Auto) NEGATIVE NEGATIVE Urine RBC NONE /HPF Urine WBC 0-2 /HPF Urine Squamous Epithelial Cells RARE /HPF Urine Crystals NONE /LPF Urine Bacteria NEGATIVE /HPF Urine Casts NONE /LPF Urine Mucus NEGATIVE /LPF Urine Culture Indicated NO My Orders Orders - LISA JOLLEY MD Ekg Tracing (10/10/17 11:16) Cbc With Automated Diff (10/10/17 11:25) Magnesium (10/10/17 11:25) Chest 1 View, Ap/Pa Only (10/10/17 11:25) Cardiac Profile 1 (10/10/17 11:25) Comprehensive Metabolic Panel (10/10/17 11:25) Myoglobin Serum (10/10/17 11:25) Protime With Inr (10/10/17 11:25) Partial Thromboplastin Time (10/10/17 11:25) O2 (10/10/17 11:25) Monitor-Rhythm Ecg Trace Only (10/10/17 11:25) Saline Lock/Iv-Start (10/10/17 11:25) Thyroid Stimulating Hormone (10/10/17 11:25) Free T4 (Free Thyroxine) (10/10/17 11:25) BNP (10/10/17 12:04) Ua Culture If Indicated (10/10/17 12:12) Ct Head Wo (10/10/17 12:32) Us Carotid Hans Complete 16420 (10/10/17 12:55) Troponin I (10/10/17 13:56) Ekg Tracing (10/10/17 13:56) Ns Iv 1000 Ml (Sodium Chloride 0.9%) (10/10/17 14:08) Medications Given in ED Vital Signs/I&O Capillary Refill : Less Than 3 Seconds Blood Pressure Mean: 114 Progress Note : Progress Note Initial workup with labs, urinalysis, and chest x-ray was unremarkable and did not explain patient's symptoms. She was having sinus arrhythmia but no bradycardia or hypotension. She did have mild hypertension. To further workup her complaints, CT of the head was performed to ensure she did not suffer any intracranial injury with the fall she suffered last week. Patient is on Coumadin and may have developed intracranial bleed as a result. Ultrasound of the carotid arteries was also performed due to worsening of dizziness upon standing despite being hypertensive. Both CT and carotid ultrasound were unremarkable. Patient was given a liter of IV fluids after becoming very dizzy upon standing. She did have a significant drop in blood pressure of about 30 points. This orthostatic effect resolved after a liter of IV fluids. Patient did still feel weak however and had a persistent subtle heaviness in her chest. Case was discussed with Dr. Rodriguez who recommended close follow-up in the clinic and a 3 hour troponin to rule out. Repeat EKG and troponin were negative. Patient was dismissed in improved condition. Dr. Rodriguez did present to the emergency room to see the patient. ECG Initial ECG Impression Date: Oct 10, 2017 Initial ECG Impression Time: 11:15 Initial ECG Rate: 66 Comment Sinus arrhythmia with no ST elevation or depression. No axis deviation. Borderline prolonged QT interval. First-degree AV block. EKG : EKG Time: 14:24 Rate: 60 Comment Sinus arrhythmia with frequent premature atrial complexes. First-degree AV block. No ST elevation or depression. Diagnostic Imaging Diagonstic Imaging: Ultrasound Plain Films/CT/US/NM/MRI: other (bilateral carotid) Comments Bilateral carotid ultrasound discussed with procurement technician and report reviewed. See report below: NAME: SHERRI GARCIA MED REC#: [id number] PT STATUS: REG ER : 1935 PHYSICIAN: LISA JOLLEY MD ADMIT DATE: 10/10/17/ER Signed Date of Exam: 10/10/17 US CAROTID HANS COMPLETE [id number] PROCEDURE: US Carotid Duplex Bilateral. TECHNIQUE: Multiple real-time grayscale images were obtained over the carotid arteries in various projections bilaterally. Additional duplex Doppler and color Doppler images were also obtained. INDICATION: Dizziness. COMPARISON: None available. FINDINGS: Right carotid circulation: The right common carotid artery is normal in caliber, and there is no significant stenosis. Peak systolic velocity in the right common carotid artery is 61 cm/sec. There is a moderate amount of calcified atherosclerotic plaque in the carotid bulb and proximal internal carotid artery, which results in less than 50% luminal narrowing by kessler scale imaging. The peak systolic velocity in the proximal internal carotid artery is 115 cm/sec. Proximal aspect of the external carotid artery is patent with expected high resistance waveforms, and peak systolic velocity of 67 cm/sec. Left carotid circulation: The left common carotid artery is normal in caliber, and there is no significant stenosis. Peak systolic velocity in the left common carotid artery is 81 cm/sec. There is small to moderate amount of atherosclerotic plaque in the carotid bulb and proximal internal carotid artery, which results in less than 50% luminal narrowing by kessler scale imaging. The peak systolic velocity in the proximal internal carotid artery is 90 cm/sec. Proximal aspect of the external carotid artery is patent with expected high resistance waveforms, and peak systolic velocity of 51 cm/sec. Vertebral arteries: Flow in the bilateral vertebral arteries is antegrade. IMPRESSION: 1. Less than 50% stenosis of the bilateral proximal internal carotid arteries due to calcified atherosclerotic plaquing. 2. Patent bilateral vertebral arteries with antegrade flow. Dictated by: Dictated on workstation # [id number] Dict: 10/10/17 1352 Trans: 10/10/17 1358 Interpreted by: HERMELINDA HUMPHREY MD Electronically signed by: HERMELINDA HUMPHREY MD 10/10/17 1358 Diagonstic Imaging: CT Plain Films/CT/US/NM/MRI: head Comments CT head viewed by me and report reviewed. See report below: NAME: SHERRI GARCIA MED REC#: [id number] PT STATUS: REG ER : 1935 PHYSICIAN: LISA JOLLEY MD ADMIT DATE: 10/10/17/ER Signed Date of Exam: 10/10/17 CT HEAD WO PROCEDURE: CT head without contrast. TECHNIQUE: Multiple contiguous axial images were obtained through the brain without the use of intravenous contrast. INDICATION: Fall with head trauma. COMPARISON: None available. FINDINGS: Age-appropriate global atrophy. No acute hyperdense hemorrhage or space-occupying mass. No hydrocephalus or midline shift. Periventricular white matter hypoattenuation is likely due to chronic microvascular ischemic disease. No evidence of territorial infarct. No acute calvarial fracture. Orbits are grossly normal. Paranasal sinuses and mastoid air cells are clear. IMPRESSION: 1. No acute intracranial process by CT. 2. No acute or healing skull fracture. Dictated by: Dictated on workstation # [id number] Dict: 10/10/17 1249 Trans: 10/10/17 1345 Interpreted by: HERMELINDA HUMPHREY MD Electronically signed by: HERMELINDA HUMPHREY MD 10/10/17 1345 Diagonstic Imaging: Xray Plain Films/CT/US/NM/MRI: chest Comments Chest x-ray viewed by me and report reviewed. See report below: NAME: SHERRI GARCIA MED REC#: [id number] PT STATUS: REG ER : 1935 PHYSICIAN: LISA JOLLEY MD ADMIT DATE: 10/10/17/ER Signed Date of Exam: 10/10/17 CHEST 1 VIEW, AP/PA ONLY INDICATION: Chest pain. COMPARISON: 05/14/2009. FINDINGS: Visible lungs are clear. Please note that the posterior lower lobes are poorly evaluated by portable radiography. No pleural effusion or pneumothorax. Heart is enlarged with aortic valve replacement. Stable configuration of sternal wires. IMPRESSION: No acute cardiopulmonary process by portable radiography. Dictated by: Dictated on workstation # [id number] Dict: 10/10/17 1159 Trans: 10/10/17 1226 Interpreted by: HERMELINDA HUMPHREY MD Electronically signed by: HERMELINDA HUMPHREY MD 10/10/17 1226 Departure Impression Impression: Primary Impression: Chest heaviness Additional Impressions: Lightheadedness Diarrhea Qualified Codes: R19.7 - Diarrhea, unspecified Hypovolemia Disposition: 01 HOME, SELF-CARE Condition: Improved Departure-Patient Inst. Decision time for Depature: 15:07 Referrals: GRUPO LANDRUM MD (PCP/Family) Primary Care Physician Patient Instructions: Chest Pain (DC) Add. Discharge Instructions: Drink plenty of clear liquids. Continue with your medications as previously prescribed. Follow-up with Dr. Rodriguez's office early this week. Please call Thursday morning for an appointment time. Return to the emergency room if symptoms worsen. All discharge instructions reviewed with patient and/or family. Voiced understanding. LISA JOLLEY MD Oct 10, 2017 13:12
--- NOTE | 2017-10-10 13:57 | Diagnostic Imaging Report ---
PROCEDURE: US Carotid Duplex Bilateral. TECHNIQUE: Multiple real-time grayscale images were obtained over the carotid arteries in various projections bilaterally. Additional duplex Doppler and color Doppler images were also obtained. INDICATION: Dizziness. COMPARISON: None available. FINDINGS: Right carotid circulation: The right common carotid artery is normal in caliber, and there is no significant stenosis. Peak systolic velocity in the right common carotid artery is 61 cm/sec. There is a moderate amount of calcified atherosclerotic plaque in the carotid bulb and proximal internal carotid artery, which results in less than 50% luminal narrowing by kessler scale imaging. The peak systolic velocity in the proximal internal carotid artery is 115 cm/sec. Proximal aspect of the external carotid artery is patent with expected high resistance waveforms, and peak systolic velocity of 67 cm/sec. Left carotid circulation: The left common carotid artery is normal in caliber, and there is no significant stenosis. Peak systolic velocity in the left common carotid artery is 81 cm/sec. There is small to moderate amount of atherosclerotic plaque in the carotid bulb and proximal internal carotid artery, which results in less than 50% luminal narrowing by kessler scale imaging. The peak systolic velocity in the proximal internal carotid artery is 90 cm/sec. Proximal aspect of the external carotid artery is patent with expected high resistance waveforms, and peak systolic velocity of 51 cm/sec. Vertebral arteries: Flow in the bilateral vertebral arteries is antegrade. IMPRESSION: 1. Less than 50% stenosis of the bilateral proximal internal carotid arteries due to calcified atherosclerotic plaquing. 2. Patent bilateral vertebral arteries with antegrade flow. Dictated by: Dictated on workstation # [id number]
[2017-10-10] MEDS ORDERED: NS IV 1000 ML 1,000 ML IV ONE (14:08)
--- NOTE | 2017-10-10 14:54 | Consultation-Cardiology ---
HPI-Cardiology Cardiology Consultation: Date of Consultation 10/10/17 Date of Admission Attending Physician Admitting Physician Angelica Beard MD Consulting Physician Ena RODRIGUEZ MD HPI: Time Seen by Provider: 14:49 Chief Complaint: Chest heaviness, shortness of breath, dizziness, diarrhea, atrial fibrillation This is a 82-year-old lady who is well-known to me. She follows with me in the outpatient setting. She has previous history of paroxysmal atrial fibrillation with implantable loop recorder. She presents with chest heaviness, shortness of breath, dizziness and diarrhea. She's been having diarrhea since yesterday. She describes her dizziness more like fainting. She also had a fall recently. The chest heaviness his mild. Substernal in nature. No radiation. No exacerbating or relieving factors. Associated with mild shortness of breath. Review of Systems-Cardiology Review of Systems Constitutional: lightheadedness Eyes: No As described under HPI, No no symptoms reported, No blindness, No blurred vision, No contact lenses, No drainage, No decreased acuity, No foreign body sensation, No glasses, No inflammation, No pain, No photophobia, No previous injury, No shadows, No tunnel vision, No other, No vision change Ears/Nose/Throat: No As described under HPI, No no symptoms reported, No chronic hearing loss, No epistaxis, No ear discharge, No ear pain, No loose teeth, No mouth pain, No mouth swelling, No nasal drainage, No nose pain, No recent hearing loss, No throat pain, No throat swelling, No ulcerations, No other Respiratory: shortness of breath Cardiovascular: chest pain, irregular heart rate Gastrointestinal: diarrhea Genitourinary: No no symptoms reported, No As described under HPI, No burning, No dysuria, No discharge, No frequency, No flank pain, No hematuria, No incontinence, No pain, No urgency, No other, No urine frequency changes, No urine coloration changes Musculoskeletal: No no symptoms reported, No As describe under HPI, No back pain, No gout, No joint pain, No joint swelling, No muscle pain, No muscle stiffness, No neck pain, No other Skin: No no symptoms reported, No As described under HPI, No change in color, No change in hair/nails, No dryness, No lesions, No lumps, No rash, No other, No skin related problems, No ulcerations, No rash on exposed areas, No ulcerations on exposed areas Psychiatric/Neurological: No no symptoms reported, No As described under HPI, No anxiety, No depression, No emotional problems, No headache, No numbness, No pre-existing deficit, No seizure, No tingling, No tremors, No weakness, No other , No focal weakness, No syncope Hematologic: No no symptoms reported, No As described under HPI, No anemia, No blood clots, No easy bleeding, No easy bruising, No swollen glands, No other, No bleeding abnormalities ECB-Qsvmdy-Glpsvi Hx Patient Social History Alcohol Use: Denies Use Recreational Drug Use: No Smoking Status: Never a Smoker Recent Foreign Travel: No Recent Infectious Disease Expo: No Hospitalization with Isolation: Denies Past Medical History PMH As described under Assessment. Allergies and Home Medications Allergies Coded Allergies: acetaminophen (Verified Allergy, Unknown, 10/10/17) hydrocodone (Verified Allergy, Unknown, 10/10/17) Uncoded Allergies: SULFA (Allergy, Unknown, 10/10/17) Home Medications Atorvastatin Calcium 20 Mg Tablet, (Reported) Levothyroxine Sodium 125 Mcg Tablet, (Reported) Lisinopril 20 Mg Tablet, (Reported) Lorazepam 1 Mg Tablet, (Reported) Warfarin Sodium 2.5 Mg Tablet, (Reported) [Warfin 1.5 ] , (Reported) Physical Exam-Cardiology Physical Exam Vital Signs/I&O Vital Sign - Last 12Hours 10/10/17 11:11 Temp 98.0 Pulse 62 B/P (MAP) 168/87 Pulse Ox 100 O2 Delivery Room Air Capillary Refill : Less Than 3 Seconds Constitutional: No appears stated age, No AAO x 3, No apparent distress, No PERRL, No well-developed, No well-nourished, No other HEENT: No PERRL, No normal ENT inspection, No TMs normal, No pharynx normal, No scleral icterus (R), No scleral icterus (L), No pale conjunctivae (R), No pale conjunctivae (L), No photophobia, No TM abnormal (R), No TM abnormal (L), No pharyngeal erythema, No tonsillar exudate, No other, No discharge, No EOMI, No hearing is well preserved, No hard of hearing, No oral hygience is good, No ulceration, No xanthelasmas are seen Neck: No non-tender, No full range of motion, No supple, No normal inspection, No carotid bruit, No limited range of motion, No lymphadenopathy (R), No lymphadenopathy (L), No tender lateral, No tender midline, No thyromegaly, No other, No carotid pulses are 2 + bilaterally, No with good upstrokes Respiratory: No accessory muscle use, No respiratory distress, No chest tender , No chest expansion is symmetric, No chest is bilaterally symmetric, No lungs clear to percussion, No lungs clear to auscultation, No crackles, No rhonchi, No rales, No stridor, No wheezing, No pleural rub, No other Cardiovascular: regular rate-rhythm, No irregularly irregular, No extra beats, No parasternal heave is noted, No JVD, No edema, No bradycardia, No tachycardia , No point of maximal impulse, No cardiac thrills are palpable, No S1 and S2, No gallop/S3, No gallop/S4, No diastolic murmur, No systolic murmur, No friction rub, No click, No other Gastrointestinal: No tender, No soft, No round, No distended, No pulsatile mass , No organomegaly, No guarding, No rebound, No tenderness, No hernia, No mass, No audible bowel sounds, No abnormal bowel sounds, No abdominal bruits, No spleenomegaly, No other Rectal: deferred Extremities: No normal range of motion, No non-tender, No normal inspection, No pedal edema, No calf tenderness, No normal capillary refill, No pelvis stable , No calf tenderness, No inflammation, No pedal edema, No slow capillary refill , No swelling, No other, No abrasion, No clubbing, No cyanosis, No ecchymosis, No laceration, No no lower extremity edema bilateral, No significant edema, No tenderness, No wound Neurologic/Psychiatric: No evs manager II-XII nml as tested, No no motor/sensory deficits, No alert, No normal mood/affect, No oriented x 3, No abnormal cerebellar tests, No abnormal evs manager II-XII, No abnormal gait, No aphasia, No EOM palsy, No facial droop, No motor weakness, No sensory deficit, No depressed affect, No disoriented x 3, No other, No grossly intact, No power is 5/5 both on sides Skin: No normal color, No warm/dry, No cyanosis, No cool, No diaphoresis, No damp, No ecchymosis, No jaundice, No mottled, No pallor, No rash, No tattoos/ piercings, No ulcerations, No rash on exposed areas, No ulcerations on exposed areas, No other Data Review Labs Laboratory Tests 10/10/17 11:20: White Blood Count 4.9, Red Blood Count 4.42, Hemoglobin 13.6, Hematocrit 41, Mean Corpuscular Volume 92, Mean Corpuscular Hemoglobin 31, Mean Corpuscular Hemoglobin Concent 34, Red Cell Distribution Width 14.6H, Platelet Count 261, Mean Platelet Volume 9.8, Neutrophils (%) (Auto) 64, Lymphocytes (%) (Auto) 17, Monocytes (%) (Auto) 10, Eosinophils (%) (Auto) 8, Basophils (%) (Auto) 1, Neutrophils # (Auto) 3.2, Lymphocytes # (Auto) 0.8L, Monocytes # (Auto) 0.5, Eosinophils # (Auto) 0.4H, Basophils # (Auto) 0.0, Prothrombin Time 19.5H, INR Comment 1.6H, Activated Partial Thromboplast Time 50H, Sodium Level 140, Potassium Level 4.3, Chloride Level 104, Carbon Dioxide Level 26, Anion Gap 10, Blood Urea Nitrogen 17, Creatinine 1.00, Estimat Glomerular Filtration Rate 53, BUN/Creatinine Ratio 17, Glucose Level 96, Calcium Level 8.8, Magnesium Level 2.3, Total Bilirubin 0.6, Aspartate Amino Transf (AST/SGOT) 27, Alanine Aminotransferase (ALT/SGPT) 20, Alkaline Phosphatase 85, Myoglobin 49.8, Troponin I < 0.30, B-Type Natriuretic Peptide 136.7H, Total Protein 6.5, Albumin 4.0, Thyroid Stimulating Hormone (TSH) 1.30, Free Thyroxine 1.53H 10/10/17 12:03: Urine Color YELLOW, Urine Clarity SLIGHTLY CLOUDY, Urine pH 8, Urine Specific [place] 1.015L, Urine Protein NEGATIVE, Urine Glucose (UA) NEGATIVE, Urine Ketones NEGATIVE, Urine Nitrite NEGATIVE, Urine Bilirubin NEGATIVE, Urine Urobilinogen NORMAL, Urine Leukocyte Esterase 3+H, Urine RBC (Auto) NEGATIVE, Urine RBC NONE, Urine WBC 0-2, Urine Squamous Epithelial Cells RARE, Urine Crystals NONE, Urine Bacteria NEGATIVE, Urine Casts NONE, Urine Mucus NEGATIVE, Urine Culture Indicated NO 10/10/17 14:20: ECG Impression ECG Initial ECG Rhythm: Normal Sinus, PAC Initial ECG Impression: 1st Degree AV Block Comment Sinus arrhythmia. Prolonged AL interval. Multiple APCs. A/P-Cardiology Assessment/Admission Diagnosis 1. Irregular heart rhythm. 2. Chest pain. 3. Shortness of breath. 4. Dizziness. 5. Diarrhea. 6. Atrial fibrillation. Plan 1. Irregular heart rhythm. EKG shows numerous PACs. Normal sinus rhythm. PACs likely the reason for her irregular heart beating. 2. Chest pain. First set of troponin negative. Awaiting second set. If both sets negative unlikely to be acute coronary syndrome. Will consider stress testing as an outpatient. 3. Shortness of breath. Euvolemic with no congestive heart failure on examination. Continue same treatment. 4. Dizziness. Orthostatic changes noted. Likely secondary to dehydration from diarrhea. IV fluids being given. Will arrange for interrogation of implantable loop recorder as an outpatient. 5. Diarrhea. IV fluids. 6. Atrial fibrillation. Currently in sinus rhythm. I will follow in office on Thursday to perform device interrogation for the implantable loop recorder. And discussed with the patient. Thank you for your consultation. Please call me if you have any questions. Elen Rodriguez MD, FACP, FACC, FSCAI, FHRS, CCDS Interventional Cardiology Cardiac Electrophysiology Vascular Medicine and Endovascular Interventions Ena RODRIGUEZ MD Oct 10, 2017 14:54
[2017-10-10 15:25] VITALS: BP 179/89
== END 2017-10-10 15:28 | disposition home or self-care (01) ==
LOC: EDUNIT# 11:11 → ER 11:13
DX: R07.89 Other chest pain (principal); R42 Dizziness and giddiness; R19.7 Diarrhea, unspecified; E86.1 Hypovolemia; I48.91 Unspecified atrial fibrillation; E78.00 Pure hypercholesterolemia, unspecified; I10 Essential (primary) hypertension; K21.9 Gastro-esophageal reflux disease without esophagitis; E03.9 Hypothyroidism, unspecified; Z85.528 Personal history of other malignant neoplasm of kidney; Z79.01 Long term (current) use of anticoagulants; Z90.710 Acquired absence of both cervix and uterus; Z90.5 Acquired absence of kidney; Z95.2 Presence of prosthetic heart valve
CPT/HCPCS: 36415; 70450; 71010; 80053; 81000; 83735; 83874; 83880; 84439; 84443; 84484; 85025; 85610; 85730; 93005; 93041; 93880

== ENCOUNTER 2017-11-09 15:14 | Inpatient (IN) | payer MEDICARE, OTHER ==
[~2017-11-09] VITALS: Ht 152.4 cm; Wt 60.9 kg
[2017-11-09] VITALS (9 sets, daily range): BP systolic 110–126; BP diastolic 63–98
[~2017-11-09 15:14] MED LIST: ATOR20TA66 PO; LEVO125T6 PO; LISI-552 PO; LORA1TAB PO; WARF2.5T82 PO; [UNRECOGNIZED DRUG - OTHER]
--- NOTE | 2017-11-09 15:26 | ED Cardiac General ---
History of Present Illness General Chief Complaint: Cardiac/General Problems Stated Complaint: IRREGULAR PULSE Source: patient, family Exam Limitations: no limitations History of Present Illness Time seen by provider: 15:24 Initial Comments To ER completed by her daughter with reports of tachycardia, irregular pulse since this morning after doing her exercises in bed. She reports general weakness. She does have shortness of breath. She denies chest pain. She has a known history of atrial fibrillation intermittently and is on warfarin. She follows with Dr. Rodriguez. Primary care is Dr. Landrum. 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: No ASA po [employer]ICE [employer]ELOPMENT: No Associated Systoms: No Cough, Malaise, Weakness Allergies and Home Medications Allergies Coded Allergies: acetaminophen (Verified Allergy, Unknown, 10/10/17) hydrocodone (Verified Allergy, Unknown, 10/10/17) Uncoded Allergies: SULFA (Allergy, Unknown, 10/10/17) Home Medications Atorvastatin Calcium 20 Mg Tablet, (Reported) Levothyroxine Sodium 125 Mcg Tablet, (Reported) Lisinopril 20 Mg Tablet, (Reported) Lorazepam 1 Mg Tablet, (Reported) Warfarin Sodium 2.5 Mg Tablet, (Reported) [Warfin 1.5 ] , (Reported) Review of Systems Constitutional: see HPI, weakness EENTM: No Symptoms Reported Respiratory: See HPI, Shortness of Air Cardiovascular: No Symptoms Reported, Denies Chest Pain, Denies Edema, Irregular Heart Rate Gastrointestinal: No Symptoms Reported Musculoskeletal: no symptoms reported Skin: no symptoms reported Past Jsynfqp-Oajwtq-Bpycab Hx Patient Social History Alcohol Use: Denies Use Recreational Drug Use: No Smoking Status: Never a Smoker Surgeries History of Surgeries: Yes ( L KIDNEY REMOVED) Surgeries: Hysterectomy, Orthopedic, Renal, Valve Replacement Respiratory History of Respiratory Disorde: No Cardiovascular History of Cardiac Disorders: Yes (MITRIAL VALVE REPLACENT/IMPLANT THAT MONITOR A FIB) Cardiac Disorders: Atrial Fibrillation, High Cholesterol, Hypertension, Valvular Heart Disease Neurological History of Neurological Disord: No 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 Genitourinary History of Genitourinary Disor: No Gastrointestinal History of Gastrointestinal Di: Yes Gastrointestinal Disorders: Gastroesophageal Reflux Musculoskeletal History of Musculoskeletal Dis: No Endocrine History of Endocrine Disorders: Yes Endocrine Disorders: Hypothyroidsim Cancer History of Cancer: Yes Cancer: Kidney Psychosocial History of Psychiatric Problem: No Integumentary History of Skin or Integumenta: No Physical Exam Vital Signs Vital Sign - Last 12Hours 11/09/17 15:14 Temp 98.2 Pulse 129 Resp 18 B/P (MAP) 101/77 (85) Pulse Ox 99 O2 Delivery Room Air Capillary Refill : General Appearance: No Apparent Distress, WD/WN, Other (heart rate 120-140 irregular atrial fibrillation. Blood pressure 110/79) HEENT: PERRL/EOMI, TMs Normal Neck: Full Range of Motion, Normal Inspection Respiratory: Lungs Clear, Normal Breath Sounds, No Accessory Muscle Use, No Respiratory Distress Cardiovascular: Irregularly Irregular, Tachycardia Gastrointestinal: Normal Bowel Sounds, Non Tender, Soft Extremity: Normal Capillary Refill, Normal Inspection, No Pedal Edema Neurologic/Psychiatric: Alert, Oriented x3 Skin: Normal Color, Warm/Dry Progress/Results/Core Measures Results/Orders Lab Results Laboratory Tests Test 11/09/17 15:33 11/09/17 16:15 Range/Units White Blood Count 5.2 4.3-11.0 10^3/uL Red Blood Count 4.21 L 4.35-5.85 10^6/uL Hemoglobin 13.1 11.5-16.0 G/DL Hematocrit 39 35-52 % Mean Corpuscular Volume 92 80-99 FL Mean Corpuscular Hemoglobin 31 25-34 PG Mean Corpuscular Hemoglobin Concent 34 32-36 G/DL Red Cell Distribution Width 14.0 10.0-14.5 % Platelet Count 228 130-400 10^3/uL Mean Platelet Volume 10.2 7.4-10.4 FL Neutrophils (%) (Auto) 70 42-75 % Lymphocytes (%) (Auto) 18 12-44 % Monocytes (%) (Auto) 8 0-12 % Eosinophils (%) (Auto) 4 0-10 % Basophils (%) (Auto) 1 0-10 % Neutrophils # (Auto) 3.7 1.8-7.8 X 10^3 Lymphocytes # (Auto) 0.9 L 1.0-4.0 X 10^3 Monocytes # (Auto) 0.4 0.0-1.0 X 10^3 Eosinophils # (Auto) 0.2 0.0-0.3 10^3/uL Basophils # (Auto) 0.0 0.0-0.1 10^3/uL Prothrombin Time 18.5 H 12.2-14.7 SEC INR Comment 1.5 H 0.8-1.4 Activated Partial Thromboplast Time 38 H 24-35 SEC Sodium Level 139 135-145 MMOL/L Potassium Level 3.5 L 3.6-5.0 MMOL/L Chloride Level 107 98-107 MMOL/L Carbon Dioxide Level 25 21-32 MMOL/L Anion Gap 7 5-14 MMOL/L Blood Urea Nitrogen 11 7-18 MG/DL Creatinine 0.84 0.60-1.30 MG/DL Estimat Glomerular Filtration Rate > 60 BUN/Creatinine Ratio 13 Glucose Level 128 H 70-105 MG/DL Calcium Level 8.4 L 8.5-10.1 MG/DL Magnesium Level 1.8 1.8-2.4 MG/DL Total Bilirubin 0.5 0.1-1.0 MG/DL Aspartate Amino Transf (AST/SGOT) 25 5-34 U/L Alanine Aminotransferase (ALT/SGPT) 19 0-55 U/L Alkaline Phosphatase 86 40-136 U/L Myoglobin 66.3 10.0-92.0 NG/ML Troponin I < 0.30 <0.30 NG/ML B-Type Natriuretic Peptide 472.3 H <100.0 PG/ML Total Protein 5.5 L 6.4-8.2 GM/DL Albumin 3.6 3.2-4.5 GM/DL My Orders Orders - ZACHARY NELSON APRN Cbc With Automated Diff (11/09/17 15:16) Magnesium (11/09/17 15:16) Chest 1 View, Ap/Pa Only (11/09/17 15:16) Ekg Tracing (11/09/17 15:16) Cardiac Profile 1 (11/09/17 15:16) Comprehensive Metabolic Panel (11/09/17 15:16) Myoglobin Serum (11/09/17 15:16) Protime With Inr (11/09/17 15:16) Partial Thromboplastin Time (11/09/17 15:16) O2 (11/09/17 15:16) Monitor-Rhythm Ecg Trace Only (11/09/17 15:16) Lipid Panel (11/10/17 06:00) Aspirin Chewable Tablet (Baby Aspirin Ch (11/09/17 15:30) Saline Lock/Iv-Start (11/09/17 15:16) BNP (11/09/17 15:16) Diltiazem Injection (Cardizem Injection) (11/09/17 15:30) Ns (Ivpb) (Sodium C... W/Diltiazem Iv Fo (11/09/17 15:30) Ns Iv 1000 Ml (Sodium Chloride 0.9%) (11/09/17 15:30) Ua Culture If Indicated (11/09/17 15:45) Thyroid Stimulating Hormone (11/09/17 15:48) Free T4 (Free Thyroxine) (11/09/17 15:48) Medications Given in ED Current Medications Medications Dose Ordered Sig/Robb Route Start Time Stop Time Status Last Admin Dose Admin Aspirin 324 mg ONCE ONCE PO 11/09/17 15:30 11/09/17 15:31 DC 11/09/17 15:29 324 MG Diltiazem HCl 10 mg ONCE ONCE IVP 11/09/17 15:30 11/09/17 15:31 DC 11/09/17 15:31 10 MG Vital Signs/I&O Vital Sign - Last 12Hours 11/09/17 11/09/17 11/09/17 11/09/17 15:14 15:39 15:55 16:40 Temp 98.2 Pulse 129 83 85 Resp 18 18 5 B/P (MAP) 101/77 (85) 101/77 110/91 (97) 115/98 (104) Pulse Ox 99 98 96 O2 Delivery Room Air Room Air Room Air Diagnostic Imaging Diagonstic Imaging: Xray Plain Films/CT/US/NM/MRI: chest Comments NAME: SHERRI GARCIA [facility] REC#: [id number] PT STATUS: REG ER : 1935 PHYSICIAN: ZACHARY NELSON APRN ADMIT DATE: 11/09/17/ER Draft Date of Exam:11/09/17 CHEST 1 VIEW, AP/PA ONLY EXAMINATION: Portable upright radiograph of the chest. INDICATION: Atrial fibrillation. FINDINGS: The lungs are hyperinflated. No focal infiltrate. The heart size is mildly enlarged. No effusion or pneumothorax is seen. The mediastinum and margaret appear unremarkable. There is an aortic valve replacement, heart monitor, and sternotomy wires projecting over the chest. IMPRESSION: Cardiomegaly. COPD. Dictated on workstation # [id number] Dict: 11/09/17 1557 Trans: 11/09/17 1600 [id number] Interpreted by: XIAO HOGAN MD Electronically signed by: Departure Communication (Admissions) Time/Spoke to Admitting Phy: 16:59 Communication I spoke with Dr. Cash. She agrees to admit Time/Spoke to Consulting Phy: 16:59 Communication/Consulting I spoke to Dr. Rodriguez. He agrees to admit, bridge with Lovenox for the subtherapeutic INR, tentative plan for TIO cardioversion in the morning. Progress Notes Patient states she does wish to be a DO NOT RESUSCITATE status Impression Impression: Primary Impression: Atrial fibrillation with rapid ventricular response Disposition: ADMITTED INPATIENT Condition: Stable Admissions Decision to Admit Reason: Admit from ER (General) Decision to Admit/Date: Nov 09, 2017 Time/Decision to Admit Time: 15:29 Departure-Patient Inst. Referrals: GRUPO LANDRUM MD (PCP/Family) Primary Care Physician ZACHARY NELSON APRN Nov 09, 2017 15:26
[2017-11-09] MEDS ORDERED: ASPIRIN 81 MG CHEW (CHILDREN'S ASA) PO ONE (15:30)
[2017-11-09] MEDS ORDERED: DILTIAZEM 25 MG/5 ML INJ (CARDIZEM) VIAL IVP ONE (15:30)
[2017-11-09] MEDS ORDERED: DILTIAZEM IV FOR DRIP 125 MG in NS (IVPB) 100 ML IV SCH (15:30)
[2017-11-09] MEDS ORDERED: NS IV 1000 ML 1,000 ML IV SCH (15:30)
[2017-11-09 15:39] LABS: BASOPHILS % (AUTO) 1 % (0-10); EOSINOPHILS # (AUTO) 0.2 10^3/uL (0.0-0.3); EOSINOPHILS % (AUTO) 4 % (0-10); LYMPHOCYTES # (AUTO) 0.9 X 10^3 (1.0-4.0); LYMPHOCYTES % (AUTO) 18 % (12-44); MEAN CORPUSCULAR HEMOGLOBIN 31 PG (25-34); MEAN CORPUSCULAR HGB CONC 34 G/DL (32-36); MEAN CORPUSCULAR VOLUME 92 FL (80-99); MEAN PLATELET VOLUME 10.2 FL (7.4-10.4); MONOCYTES # (AUTO) 0.4 X 10^3 (0.0-1.0); MONOCYTES % (AUTO) 8 % (0-12); NEUTROPHILS # (AUTO) 3.7 X 10^3 (1.8-7.8); NEUTROPHILS % (AUTO) 70 % (42-75); PLATELET COUNT 228 10^3/uL (130-400); RED BLOOD COUNT 4.21 10^6/uL (4.35-5.85); WHITE BLOOD COUNT 5.2 10^3/uL (4.3-11.0)
--- NOTE | 2017-11-09 16:01 | Diagnostic Imaging Report ---
EXAMINATION: Portable upright radiograph of the chest. INDICATION: Atrial fibrillation. FINDINGS: The lungs are hyperinflated. No focal infiltrate. The heart size is mildly enlarged. No effusion or pneumothorax is seen. The mediastinum and margaret appear unremarkable. There is an aortic valve replacement, heart monitor, and sternotomy wires projecting over the chest. IMPRESSION: Cardiomegaly. COPD. Dictated by: Dictated on workstation # [id number]
[2017-11-09 16:10] LABS: INR 1.5 (0.8-1.4); PROTHROMBIN TIME PATIENT 18.5 SEC (12.2-14.7)
[2017-11-09 16:46] LABS: ALANINE AMINOTRANSFERASE 19 U/L (0-55); ALBUMIN 3.6 GM/DL (3.2-4.5); ANION GAP 7 MMOL/L (5-14); ASPARTATE AMINO TRANSFERASE 25 U/L (5-34); BILIRUBIN,TOTAL 0.5 MG/DL (0.1-1.0); BLOOD UREA NITROGEN 11 MG/DL (7-18); BUN/CREATININE RATIO 13; CALCIUM 8.4 MG/DL (8.5-10.1); CARBON DIOXIDE 25 MMOL/L (21-32); CHLORIDE 107 MMOL/L (98-107); CREATININE SERUM 0.84 MG/DL (0.60-1.30); GFR ESTIMATED > 60; GLUCOSE 128 MG/DL (70-105); MAGNESIUM 1.8 MG/DL (1.8-2.4); POTASSIUM 3.5 MMOL/L (3.6-5.0); SODIUM 139 MMOL/L (135-145); TOTAL PROTEIN 5.5 GM/DL (6.4-8.2)
[2017-11-09 16:54] LABS: MYOGLOBIN SERUM 66.3 NG/ML (10.0-92.0)
[2017-11-09 17:07] LABS: THYROID STIMULATING HORMONE 1.08 UIU/ML (0.35-4.94)
--- OUTSIDE RECORDS SUMMARY | 2017-11-09 17:07 | XMS REPORT ---
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 Name Role Phone GRUPO LANDRUM Unavailable PROBLEMS Type Condition ICD9-CM Code NVW51-XH Code Onset Dates Condition Status SNOMED Code Problem Persistent atrial fibrillation I48.1 Active 840880200 Problem H/O mitral valve replacement Z95.2 Active 4339125535036 Problem Acquired hypothyroidism E03.9 Active 476447079 Problem Acquired absence of kidney Z90.5 Active 827994539 Problem Hypercholesterolemia E78.00 Active 96189733 Problem Hyperlipidemia, unspecified hyperlipidemia type E78.5 Active 61513163 Problem Hypothyroidism, unspecified type E03.9 Active 32425597 Problem care home current use of anticoagulant Z79.01 Active 700237636 Problem Chronic diarrhea K52.9 Active 062905103 Problem Macular degeneration (senile) of retina H35.30 Active 080472127 Problem Encounter for dental examination Z01.20 Active 724687917 Problem Gastroesophageal reflux disease without esophagitis K21.9 Active 529178593 Problem Essential hypertension I10 Active 30669076 Problem Atrial fibrillation, unspecified type I48.91 Active 31697923 Problem Osteoarthritis, unspecified osteoarthritis type, unspecified site M19.90 Active 291078019 Problem Functional diarrhea K59.1 Active 29211433 Problem CKD (chronic kidney disease) stage 3, GFR 30-59 ml/min N18.3 Active 306278511 Problem Primary insomnia F51.01 Active 7023044 Problem Osteopenia of multiple sites M85.89 Active 244706083 Problem Anxiety F41.9 Active 91258677 Problem 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
[2017-11-09] MEDS ORDERED: ENOXAPARIN 60 MG/0.6 ML (LOVENOX) SYR SC ONE (17:15)
[2017-11-09] MEDS ORDERED: CATHETER FLUSH 10 ML SYR IV PRN (17:30)
[2017-11-09] MEDS ORDERED: DILTIAZEM DRIP 125 MG/NS 100 ML TOTAL VOLUME 125 ML IV SCH ×2 (17:30)
[2017-11-09] MEDS ORDERED: L.AC1CAP6 PO (17:57)
[2017-11-09] MEDS ORDERED: ZOLP10TA5 PO (17:57)
[2017-11-09] MEDS ORDERED: CALC-823 PO (17:57)
[2017-11-09] MEDS ORDERED: MAGN250T2 PO (17:57)
[2017-11-09] MEDS ORDERED: CHOL20003 PO (17:57)
[2017-11-09] MEDS ORDERED: WARF2.5T82 PO (17:57)
[2017-11-09] MEDS ORDERED: TRAM50TA2 PO (17:57)
--- NOTE | 2017-11-09 21:30 | Consultation-Cardiology ---
HPI-Cardiology Cardiology Consultation: Date of Consultation 11/09/17 Date of Admission Attending Physician Angelica Beard MD Admitting Physician Angelica Beard MD Consulting Physician Ena RODRIGUEZ MD HPI: Time Seen by Provider: 18:00 Chief Complaint: fatigue, shortness of breath, palpitations this is a 82-year-old lady who I see in the office. She has history of paroxysmal atrial fibrillation. Very recently she's been having fatigue, shortness of breath and more palpitations. Remote device interrogation showed atrial fibrillation with rapid ventricular rate. She presented to the ER. She denied any syncope or near syncope. She also denied any chest pain. She has a history of mitral valve repair in 2007. She developed atrial fibrillation around that time. She also has history of hypertension and hyperlipidemia. She had rheumatic fever as a child and rheumatic heart disease. Review of Systems-Cardiology Review of Systems Constitutional: No As described under HPI, No no symptoms reported, No chills, No fever, No lightheadedness, No malaise, tiredness, No weight loss, No weight gain, No other Eyes: No As described under HPI, No no symptoms reported, No blindness, No blurred vision, No contact lenses, No drainage, No decreased acuity, No foreign body sensation, No glasses, No inflammation, No pain, No photophobia, No previous injury, No shadows, No tunnel vision, No other, No vision change Ears/Nose/Throat: No As described under HPI, No no symptoms reported, No chronic hearing loss, No epistaxis, No ear discharge, No ear pain, No loose teeth, No mouth pain, No mouth swelling, No nasal drainage, No nose pain, No recent hearing loss, No throat pain, No throat swelling, No ulcerations, No other Respiratory: shortness of breath Cardiovascular: palpitations Gastrointestinal: No no symptoms reported, No As described under HPI, No abdomen distended, No abdominal pain, No blood streaked bowels, No constipation , No diarrhea, No difficulty swallowing, No nausea, No poor appetite, No poor fluid intake, No rectal bleeding, No vomiting, No other, No nausea/vomiting/ diarrhea, No stool coloration changes Genitourinary: No no symptoms reported, No As described under HPI, No burning, No dysuria, No discharge, No frequency, No flank pain, No hematuria, No incontinence, No pain, No urgency, No other, No urine frequency changes, No urine coloration changes Musculoskeletal: No no symptoms reported, No As describe under HPI, No back pain, No gout, No joint pain, No joint swelling, No muscle pain, No muscle stiffness, No neck pain, No other Skin: No no symptoms reported, No As described under HPI, No change in color, No change in hair/nails, No dryness, No lesions, No lumps, No rash, No other, No skin related problems, No ulcerations, No rash on exposed areas, No ulcerations on exposed areas Psychiatric/Neurological: No no symptoms reported, No As described under HPI, No anxiety, No depression, No emotional problems, No headache, No numbness, No pre-existing deficit, No seizure, No tingling, No tremors, No weakness, No other , No focal weakness, No syncope Hematologic: No no symptoms reported, No As described under HPI, No anemia, No blood clots, No easy bleeding, No easy bruising, No swollen glands, No other, No bleeding abnormalities [id number] Hx Patient Social History Alcohol Use: Denies Use Recreational Drug Use: No Smoking Status: Never a Smoker Recent Foreign Travel: No Recent Infectious Disease Expo: No Hospitalization with Isolation: Denies Physical Abuse Screen: No Sexual Abuse: No Immunizations Up To Date Date of Pneumonia Vaccine: Nov 09, 2011 Date of Influenza Vaccine: Sep 30, 2017 Past Medical History PMH As described under Assessment. Allergies and Home Medications Allergies Coded Allergies: acetaminophen (Verified Allergy, Unknown, 10/10/17) hydrocodone (Verified Allergy, Unknown, 10/10/17) Uncoded Allergies: SULFA (Allergy, Unknown, 10/10/17) Home Medications Atorvastatin Calcium 20 Mg Tablet, 20 MG PO HS, (Reported) Calcium Carbonate 500 Mg Tablet, 500 MG PO DAILY, (Reported) Cholecalciferol (Vitamin D3) 2,000 Unit Capsule, 2,000 UNIT PO DAILY, (Reported) L.acidoph & Paracasei,B.lactis 1 Each Capsule, 1 CAP PO HS, (Reported) Levothyroxine Sodium 125 Mcg Tablet, 125 MCG PO DAILY, (Reported) Lisinopril 20 Mg Tablet, 20 MG PO BID, (Reported) Lorazepam 1 Mg Tablet, 0.5 MG PO DAILY PRN for ANXIETY, (Reported) TAKES 1/2 OF A (1 MG) TABLET Magnesium 250 Mg Tablet, 250 MG PO DAILY, (Reported) Tramadol HCl 50 Mg Tablet, 50 MG PO DAILY PRN for PAIN-MODERATE, (Reported) Warfarin Sodium 2.5 Mg Tablet, 2.5 MG PO SuMoTuWe@2200, (Reported) Warfarin Sodium 2.5 Mg Tablet, 1.25 MG PO ThFrSa@2200, (Reported) TAKES 1/2 OF A (2.5 MG) TABLET Zolpidem Tartrate 10 Mg Tablet, 10 MG PO HS PRN for SLEEP, (Reported) Physical Exam-Cardiology Physical Exam Vital Signs/I&O Vital Sign - Last 12Hours 11/10/17 11/10/17 11/10/17 11/10/17 01:00 01:00 02:00 03:00 Pulse 72 72 66 68 Resp 15 21 24 B/P (MAP) 109/62 (78) 115/62 (79) 109/62 (78) Pulse Ox 95 96 95 O2 Delivery Room Air Room Air Room Air 11/10/17 11/10/17 11/10/17 11/10/17 04:00 04:00 05:00 06:00 Temp 97.5 Pulse 69 72 74 Resp 18 24 29 B/P (MAP) 124/84 (97) 126/75 (92) 110/80 (90) Pulse Ox 96 95 95 O2 Delivery Room Air Room Air Room Air Room Air 11/10/17 11/10/17 11/10/17 11/10/17 07:00 07:00 07:13 08:00 Pulse 63 68 66 72 Resp 10 8 7 B/P (MAP) 125/75 (92) 113/69 140/93 (109) Pulse Ox 97 98 96 O2 Delivery Room Air Room Air Room Air 11/10/17 09:00 Pulse 72 Resp 31 B/P (MAP) 141/83 (102) Pulse Ox 97 O2 Delivery Room Air Intake and Output 11/10/17 00:00 Intake Total 1340 ml Output Total 450 ml Balance 890 ml Capillary Refill : Less Than 3 Seconds Constitutional: No appears stated age, No AAO x 3, No apparent distress, No PERRL, No well-developed, No well-nourished, No other HEENT: No PERRL, No normal ENT inspection, No TMs normal, No pharynx normal, No scleral icterus (R), No scleral icterus (L), No pale conjunctivae (R), No pale conjunctivae (L), No photophobia, No TM abnormal (R), No TM abnormal (L), No pharyngeal erythema, No tonsillar exudate, No other, No discharge, No EOMI, No hearing is well preserved, No hard of hearing, No oral hygience is good, No ulceration, No xanthelasmas are seen Neck: No non-tender, No full range of motion, No supple, No normal inspection, No carotid bruit, No limited range of motion, No lymphadenopathy (R), No lymphadenopathy (L), No tender lateral, No tender midline, No thyromegaly, No other, No carotid pulses are 2 + bilaterally, No with good upstrokes Respiratory: No accessory muscle use, No respiratory distress, No chest tender , No chest expansion is symmetric, No chest is bilaterally symmetric, No lungs clear to percussion, No lungs clear to auscultation, No crackles, No rhonchi, No rales, No stridor, No wheezing, No pleural rub, No other Cardiovascular: irregularly irregular, tachycardia, S1 and S2 Gastrointestinal: No tender, No soft, No round, No distended, No pulsatile mass , No organomegaly, No guarding, No rebound, No tenderness, No hernia, No mass, No audible bowel sounds, No abnormal bowel sounds, No abdominal bruits, No spleenomegaly, No other Rectal: deferred Extremities: No normal range of motion, No non-tender, No normal inspection, No pedal edema, No calf tenderness, No normal capillary refill, No pelvis stable , No calf tenderness, No inflammation, No pedal edema, No slow capillary refill , No swelling, No other, No abrasion, No clubbing, No cyanosis, No ecchymosis, No laceration, No no lower extremity edema bilateral, No significant edema, No tenderness, No wound Neurologic/Psychiatric: No etl lead II-XII nml as tested, No no motor/sensory deficits, No alert, No normal mood/affect, No oriented x 3, No abnormal cerebellar tests, No abnormal etl lead II-XII, No abnormal gait, No aphasia, No EOM palsy, No facial droop, No motor weakness, No sensory deficit, No depressed affect, No disoriented x 3, No other, No grossly intact, No power is 5/5 both on sides Skin: No normal color, No warm/dry, No cyanosis, No cool, No diaphoresis, No damp, No ecchymosis, No jaundice, No mottled, No pallor, No rash, No tattoos/ piercings, No ulcerations, No rash on exposed areas, No ulcerations on exposed areas, No other Data Review Labs Laboratory Tests 11/09/17 15:33: White Blood Count 5.2, Red Blood Count 4.21L, Hemoglobin 13.1, Hematocrit 39, Mean Corpuscular Volume 92, Mean Corpuscular Hemoglobin 31, Mean Corpuscular Hemoglobin Concent 34, Red Cell Distribution Width 14.0, Platelet Count 228, Mean Platelet Volume 10.2, Neutrophils (%) (Auto) 70, Lymphocytes (%) (Auto) 18 , Monocytes (%) (Auto) 8, Eosinophils (%) (Auto) 4, Basophils (%) (Auto) 1, Neutrophils # (Auto) 3.7, Lymphocytes # (Auto) 0.9L, Monocytes # (Auto) 0.4, Eosinophils # (Auto) 0.2, Basophils # (Auto) 0.0, Prothrombin Time 18.5H, INR Comment 1.5H, Activated Partial Thromboplast Time 38H 11/09/17 16:15: Sodium Level 139, Potassium Level 3.5L, Chloride Level 107, Carbon Dioxide Level 25, Anion Gap 7, Blood Urea Nitrogen 11, Creatinine 0.84, Estimat Glomerular Filtration Rate > 60, BUN/Creatinine Ratio 13, Glucose Level 128H, Calcium Level 8.4L, Magnesium Level 1.8, Total Bilirubin 0.5, Aspartate Amino Transf (AST/SGOT) 25, Alanine Aminotransferase (ALT/SGPT) 19, Alkaline Phosphatase 86, Myoglobin 66.3, Troponin I < 0.30, B-Type Natriuretic Peptide 472.3H, Total Protein 5.5L, Albumin 3.6, Thyroid Stimulating Hormone (TSH) 1.08 , Free Thyroxine 1.50H 11/10/17 04:50: White Blood Count 4.3, Red Blood Count 4.08L, Hemoglobin 12.6, Hematocrit 37, Mean Corpuscular Volume 92, Mean Corpuscular Hemoglobin 31, Mean Corpuscular Hemoglobin Concent 34, Red Cell Distribution Width 14.0, Platelet Count 229, Mean Platelet Volume 9.8, Neutrophils (%) (Auto) 51, Lymphocytes (%) (Auto) 33, Monocytes (%) (Auto) 9, Eosinophils (%) (Auto) 7, Basophils (%) (Auto) 1, Neutrophils # (Auto) 2.2, Lymphocytes # (Auto) 1.4, Monocytes # (Auto) 0.4, Eosinophils # (Auto) 0.3, Basophils # (Auto) 0.0, Sodium Level 141, Potassium Level 3.7, Chloride Level 109H, Carbon Dioxide Level 22, Anion Gap 10, Blood Urea Nitrogen 8, Creatinine 0.77, Estimat Glomerular Filtration Rate > 60, BUN/ Creatinine Ratio 10, Glucose Level 83, Calcium Level 8.4L, Magnesium Level 1.8, Phosphorus Level 2.8, Triglycerides Level 59, Cholesterol Level 131, LDL Cholesterol Direct 71, VLDL Cholesterol 12, HDL Cholesterol 45 ECG Impression ECG Initial ECG Impression: Atrial Fibrillation w/RVR A/P-Cardiology Assessment/Admission Diagnosis atrial fibrillation with rapid ventricular rate, history of mitral valve repair, Hypertension, Hyperlipidemia, Chronic kidney disease Plan Nuclear stress test done on 07/08/2016 showed mild ischemia of the distal anterior wall. Normal resting systolic function. 1. Mitral valve repair: Echocardiogram done on 12/01/2016 at [facility] in [place] showed an EF of 60-65 percent. Normal RV size and function. Mild LVH. Left atrial enlargement and right atrial enlargement. Mitral ring prosthesis with no stenosis however moderate mitral regurgitation was noted. Moderate aortic insufficiency with mild pulmonic insufficiency. Mild pulmonary hypertension with RVSP of 42 mmHg. no shortness of breath therefore will continue to follow clinically. However the patient has been educated that if her shortness of breath worsens we will repeat an echocardiogram. 2. Atrial fibrillation with RVR: she has an implantable loop monitor which was done on 06/04/2017. Device interrogation shows few episodes of atrial fibrillation. we will continue rate control and oral anticoagulation. AF with RVR - Lovonex. Cardizem infusion. TIO assisted direct external electrical cardioversion tomorrow. 3. Hypertension: We will continue lisinopril. 4. Hyperlipidemia: Continue statin therapy. Lipid profile done on 04/29/2017 showed total cholesterol 187, triglyceride 68, HDL 70, LDL 103. 5. CKD: Follows Dr. Haddad. 6. Chest heaviness: EKG and serial troponins were negative. I will recommend pharmacological nuclear stress testing. Thank you for your consultation. Please call me if you have any questions. Elen Rodriguez MD, FACP, FACC, FSCAI, FHRS, CCDS Interventional Cardiology Cardiac Electrophysiology Vascular Medicine and Endovascular Interventions Clinical Quality Measures AMI/AHF: ASA po Prior to arrival: No DVT/VTE Risk/Contraindication: Risk Factor Score Per Nursin RFS Level Per Nursing on Admit: 2=Moderate Ena RODRIGUEZ MD Nov 09, 2017 9:30 pm
[2017-11-09] MEDS: NS IV 1000 ML 1,000 ML IV SCH (21:50)
[2017-11-10] VITALS (44 sets, daily range): BP systolic 99–158; BP diastolic 54–114
[2017-11-10 05:01] LABS: BASOPHILS % (AUTO) 1 % (0-10); EOSINOPHILS # (AUTO) 0.3 10^3/uL (0.0-0.3); EOSINOPHILS % (AUTO) 7 % (0-10); LYMPHOCYTES # (AUTO) 1.4 X 10^3 (1.0-4.0); LYMPHOCYTES % (AUTO) 33 % (12-44); MEAN CORPUSCULAR HEMOGLOBIN 31 PG (25-34); MEAN CORPUSCULAR HGB CONC 34 G/DL (32-36); MEAN CORPUSCULAR VOLUME 92 FL (80-99); MEAN PLATELET VOLUME 9.8 FL (7.4-10.4); MONOCYTES # (AUTO) 0.4 X 10^3 (0.0-1.0); MONOCYTES % (AUTO) 9 % (0-12); NEUTROPHILS # (AUTO) 2.2 X 10^3 (1.8-7.8); NEUTROPHILS % (AUTO) 51 % (42-75); PLATELET COUNT 229 10^3/uL (130-400); RED BLOOD COUNT 4.08 10^6/uL (4.35-5.85); WHITE BLOOD COUNT 4.3 10^3/uL (4.3-11.0)
[2017-11-10 05:17] LABS: ANION GAP 10 MMOL/L (5-14); BLOOD UREA NITROGEN 8 MG/DL (7-18); BUN/CREATININE RATIO 10; CALCIUM 8.4 MG/DL (8.5-10.1); CARBON DIOXIDE 22 MMOL/L (21-32); CHLORIDE 109 MMOL/L (98-107); CREATININE SERUM 0.77 MG/DL (0.60-1.30); GFR ESTIMATED > 60; GLUCOSE 83 MG/DL (70-105); MAGNESIUM 1.8 MG/DL (1.8-2.4); PHOSPHORUS 2.8 MG/DL (2.3-4.7); POTASSIUM 3.7 MMOL/L (3.6-5.0); SODIUM 141 MMOL/L (135-145)
[2017-11-10 05:19] LABS: CHOLESTEROL 131 MG/DL (< 200); DIRECT LDL 71 MG/DL (1-129); TRIGLYCERIDES 59 MG/DL (<150); VLDL CHOLESTEROL 12 MG/DL (5-40)
--- NOTE | 2017-11-10 07:11 | Diagnostic Imaging Report ---
INDICATION: Shortness of breath. Comparison made with prior examination 11/09/2017. FINDINGS: Heart size is normal. There is some venous congestion. There has been previous median sternotomy. There is bibasilar subsegment atelectasis and/or pneumonitis. There is no pleural effusion or pneumothorax. Mediastinum is unremarkable. IMPRESSION: Bibasilar atelectasis and/or pneumonitis. Mild central pulmonary venous congestion. Dictated by: Dictated on workstation # [id number]
[2017-11-10] MEDS: ENOXAPARIN 60 MG/0.6 ML (LOVENOX) SYR SC SCH ×2 (07:14→18:13)
[2017-11-10] MEDS: NS IV 1000 ML 1,000 ML IV SCH (08:05)
[2017-11-10] MEDS ORDERED: CALCIUM CARBONATE 500 MG (TUMS) TAB.CHEW PO SCH (09:30)
[2017-11-10] MEDS ORDERED: LORazepam 0.5 MG (ATIVAN) TABLET PO PRN (09:30)
[2017-11-10] MEDS ORDERED: ZOLPIDEM 5 MG (AMBIEN) TAB PO PRN (09:30)
--- NOTE | 2017-11-10 09:54 | History & Physical-Hospitalist ---
HPI History of Present Illness: HPI/Chief Complaint CC: AF w/RVR HPI: This is an 82-year-old white female clinic patient of [facility] and cardiology who presents to ER after monitor revealed atrial fibrillation with rapid ventricular response with symptomatology so she was admitted and has been placed on a Cardizem drip and will be in the process of undergoing cardioversion this afternoon in the cardiac catheter lab. At this current time patient denies any palpitations the atrial fibrillation is still occurring although her rate is 82-88 and tolerated well. She was to go home as soon as possible if she is hungry. Source: patient Exam Limitations: no limitations Date Seen 11/10/17 Time Seen by Provider: 09:15 Attending Physician Angelica Beard MD PCP Angelica Beard MD Referring Physician Date of Admission Nov 09, 2017 at 15:30 Home Medications & Allergies Home Medications Reviewed patient Home Medication Reconciliation Form Allergies Allergies Coded Allergies acetaminophen (Verified Allergy, Unknown, 10/10/17) hydrocodone (Verified Allergy, Unknown, 10/10/17) Uncoded Allergies SULFA ( Allergy, Unknown, 10/10/17) Past Kabqiso-Ixzuxf-Nwaeeg Hx Patient Social History Marrital Status: Employed/Student: retired Alcohol Use: Denies Use Recreational Drug Use: No Smoking Status: Never a Smoker Physical Abuse Screen: No Sexual Abuse: No Recent Foreign Travel: No Contact w/other who traveled: No Recent Hopitalizations: No Recent Infectious Disease Expo: No Immunizations Up To Date Date of Pneumonia Vaccine: Nov 09, 2011 Date of Influenza Vaccine: Sep 30, 2017 Seasonal Allergies Seasonal Allergies: No Surgeries Yes ( L KIDNEY REMOVED) Hysterectomy, Orthopedic, Renal, Valve Replacement Respiratory No Cardiovascular Yes (MITRAL VALVE REPAIR/IMPLANT THAT MONITOR A FIB) Atrial Fibrillation, High Cholesterol, Hypertension, Valvular Heart Disease Neurological No Reproductive System : No 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 Genitourinary No Gastrointestinal Yes (brat diet) Gastroesophageal Reflux Musculoskeletal No Endocrine History of Endocrine Disorders: Yes Endocrine Disorders: Hypothyroidsim HEENT History of HEENT Disorders: No Cancer No Kidney Psychosocial History of Psychiatric Problem: No Integumentary History of Skin or Integumenta: No Review of Systems Constitutional: see HPI, weakness EENTM: no symptoms reported Respiratory: short of breath Cardiovascular: palpitations Gastrointestinal: no symptoms reported Genitourinary: no symptoms reported Musculoskeletal: no symptoms reported Skin: no symptoms reported Psychiatric/Neurological: No Symptoms Reported All Other Systems Reviewed Negative Unless Noted: Yes Physical Exam Physical Exam Vital Signs Vital Sign - Last 12Hours 11/09/17 15:14 Temp 98.2 Pulse 129 Resp 18 B/P (MAP) 101/77 (85) Pulse Ox 99 O2 Delivery Room Air Capillary Refill : Less Than 3 Seconds General Appearance: No Apparent Distress, WD/WN, Chronically ill Eyes: Bilateral Eye Normal Inspection, Bilateral Eye PERRL HEENT: PERRL/EOMI, Normal ENT Inspection, Pharynx Normal Neck: Full Range of Motion, Normal Inspection, Non Tender, Supple, Carotid Bruit Respiratory: Chest Non Tender, Lungs Clear, Normal Breath Sounds, No Accessory Muscle Use, No Respiratory Distress Cardiovascular: No Edema, No Gallop, No JVD, No Murmur, Normal Peripheral Pulses, Irregularly Irregular Gastrointestinal: Normal Bowel Sounds, No Organomegaly, No Pulsatile Mass, Non Tender, Soft Back: Normal Inspection, No CVA Tenderness, No Vertebral Tenderness Extremity: Normal Capillary Refill, Normal Inspection, Normal Range of Motion, Non Tender, No Calf Tenderness, No Pedal Edema Neurologic/Psychiatric: Alert, Oriented x3, No Motor/Sensory Deficits, Normal Mood/Affect Skin: Normal Color, Warm/Dry Lymphatic: No Adenopathy Results Results/Procedures Lab Laboratory Tests 11/09/17 15:33 11/09/17 16:15 11/10/17 04:50 Assessment/Plan Admission Diagnosis Assessment: Status post atrial fibrillation with rapid ventricular response requiring Cardizem drip and cardioversion is planned today Hypertension Hyperlipidemia Previous nephrectomy Insomnia Hypothyroidism Assessment and Plan Plan: Maintain rate control medication well in ICU and will undergo cardioversion today by cardiology Reconcile all home meds Maintain anticoagulation Monitor closely Clinical Quality Measures AMI/AHF: ASA po Prior to arrival: No DVT/VTE Risk/Contraindication: Risk Factor Score Per Nursin RFS Level Per Nursing on Admit: 2=Moderate LOUISE CLEVELAND DO Nov 10, 2017 09:54
[2017-11-10] MEDS ORDERED: proPOfol 200 MG/20 ML (DIPRIVAN) VIAL IV ONE (10:57)
[2017-11-10] MEDS ORDERED: MIDAZOLAM 2 MG/2 ML (VERSED) VIAL ONE (10:57)
[2017-11-10] MEDS ORDERED: LIDOCAINE 2% VISCOUS 15 ML UDC PO NR (11:00)
[2017-11-10] MEDS ORDERED: NS IV 500 ML 500 ML IV SCH (11:00)
[2017-11-10] MEDS ORDERED: ANTACID SUSP 30 ML UDC (MYLANTA) PO NR (12:00)
--- NOTE | 2017-11-10 12:52 | Cardiology Progress Note ---
Cardiology SOAP Progress Note Subjective: still in atrial fibrillation Objective: I&O/Vital Signs Vital Sign - Last 12Hours 11/10/17 11/10/17 11/10/17 11/10/17 01:00 01:00 02:00 03:00 Pulse 72 72 66 68 Resp 15 21 24 B/P (MAP) 109/62 (78) 115/62 (79) 109/62 (78) Pulse Ox 95 96 95 O2 Delivery Room Air Room Air Room Air 11/10/17 11/10/17 11/10/17 11/10/17 04:00 04:00 05:00 06:00 Temp 97.5 Pulse 69 72 74 Resp 18 24 29 B/P (MAP) 124/84 (97) 126/75 (92) 110/80 (90) Pulse Ox 96 95 95 O2 Delivery Room Air Room Air Room Air Room Air 11/10/17 11/10/17 11/10/17 11/10/17 07:00 07:00 07:13 08:00 Pulse 63 68 66 72 Resp 10 8 7 B/P (MAP) 125/75 (92) 113/69 140/93 (109) Pulse Ox 97 98 96 O2 Delivery Room Air Room Air Room Air 11/10/17 09:00 Pulse 72 Resp 31 B/P (MAP) 141/83 (102) Pulse Ox 97 O2 Delivery Room Air Intake and Output 11/10/17 00:00 Intake Total 1340 ml Output Total 450 ml Balance 890 ml Weight (Pounds): 134 Weight (Ounces): 4.8 Weight (Calculated Kilograms): [id number] Constitutional: No appears stated age, No AAO x 3, No apparent distress, No PERRL, No well-developed, No well-nourished, No other Respiratory: No accessory muscle use, No respiratory distress, No chest tender , No chest expansion is symmetric, No chest is bilaterally symmetric, No lungs clear to percussion, No lungs clear to auscultation, No crackles, No rhonchi, No rales, No stridor, No wheezing, No pleural rub, No other Cardiovascular: irregularly irregular, tachycardia, S1 and S2 Gastrointestional: No tender, No soft, No round, No distended, No pulsatile mass, No organomegaly, No guarding, No rebound, No tenderness, No hernia, No mass, No audible bowel sounds, No abnormal bowel sounds, No abdominal bruits, No spleenomegaly, No other Extremities: No normal range of motion, No non-tender, No normal inspection, No pedal edema, No calf tenderness, No normal capillary refill, No pelvis stable , No calf tenderness, No inflammation, No pedal edema, No slow capillary refill , No swelling, No other, No abrasion, No clubbing, No cyanosis, No ecchymosis, No laceration, No no lower extremity edema bilateral, No significant edema, No tenderness, No wound Neurologic/Psychiatric: No senior technical trainer II-XII nml as tested, No no motor/sensory deficits, No alert, No normal mood/affect, No oriented x 3, No abnormal cerebellar tests, No abnormal senior technical trainer II-XII, No abnormal gait, No aphasia, No EOM palsy, No facial droop, No motor weakness, No sensory deficit, No depressed affect, No disoriented x 3, No other, No grossly intact, No power is 5/5 both on sides Skin: No normal color, No warm/dry, No cyanosis, No cool, No diaphoresis, No damp, No ecchymosis, No jaundice, No mottled, No pallor, No rash, No tattoos/ piercings, No ulcerations, No rash on exposed areas, No ulcerations on exposed areas, No other Results/Procedures: Labs Laboratory Tests 11/09/17 15:33: White Blood Count 5.2, Red Blood Count 4.21L, Hemoglobin 13.1, Hematocrit 39, Mean Corpuscular Volume 92, Mean Corpuscular Hemoglobin 31, Mean Corpuscular Hemoglobin Concent 34, Red Cell Distribution Width 14.0, Platelet Count 228, Mean Platelet Volume 10.2, Neutrophils (%) (Auto) 70, Lymphocytes (%) (Auto) 18 , Monocytes (%) (Auto) 8, Eosinophils (%) (Auto) 4, Basophils (%) (Auto) 1, Neutrophils # (Auto) 3.7, Lymphocytes # (Auto) 0.9L, Monocytes # (Auto) 0.4, Eosinophils # (Auto) 0.2, Basophils # (Auto) 0.0, Prothrombin Time 18.5H, INR Comment 1.5H, Activated Partial Thromboplast Time 38H 11/09/17 16:15: Sodium Level 139, Potassium Level 3.5L, Chloride Level 107, Carbon Dioxide Level 25, Anion Gap 7, Blood Urea Nitrogen 11, Creatinine 0.84, Estimat Glomerular Filtration Rate > 60, BUN/Creatinine Ratio 13, Glucose Level 128H, Calcium Level 8.4L, Magnesium Level 1.8, Total Bilirubin 0.5, Aspartate Amino Transf (AST/SGOT) 25, Alanine Aminotransferase (ALT/SGPT) 19, Alkaline Phosphatase 86, Myoglobin 66.3, Troponin I < 0.30, B-Type Natriuretic Peptide 472.3H, Total Protein 5.5L, Albumin 3.6, Thyroid Stimulating Hormone (TSH) 1.08 , Free Thyroxine 1.50H 11/10/17 04:50: White Blood Count 4.3, Red Blood Count 4.08L, Hemoglobin 12.6, Hematocrit 37, Mean Corpuscular Volume 92, Mean Corpuscular Hemoglobin 31, Mean Corpuscular Hemoglobin Concent 34, Red Cell Distribution Width 14.0, Platelet Count 229, Mean Platelet Volume 9.8, Neutrophils (%) (Auto) 51, Lymphocytes (%) (Auto) 33, Monocytes (%) (Auto) 9, Eosinophils (%) (Auto) 7, Basophils (%) (Auto) 1, Neutrophils # (Auto) 2.2, Lymphocytes # (Auto) 1.4, Monocytes # (Auto) 0.4, Eosinophils # (Auto) 0.3, Basophils # (Auto) 0.0, Sodium Level 141, Potassium Level 3.7, Chloride Level 109H, Carbon Dioxide Level 22, Anion Gap 10, Blood Urea Nitrogen 8, Creatinine 0.77, Estimat Glomerular Filtration Rate > 60, BUN/ Creatinine Ratio 10, Glucose Level 83, Calcium Level 8.4L, Magnesium Level 1.8, Phosphorus Level 2.8, Triglycerides Level 59, Cholesterol Level 131, LDL Cholesterol Direct 71, VLDL Cholesterol 12, HDL Cholesterol 45 A/P: Assessment/Dx: atrial fibrillation with rapid ventricular rate, history of mitral valve repair, Hypertension, Hyperlipidemia, Chronic kidney disease Plan: Nuclear stress test done on 07/08/2016 showed mild ischemia of the distal anterior wall. Normal resting systolic function. 1. Mitral valve repair: Echocardiogram done on 12/01/2016 at [facility] in [place] showed an EF of 60-65 percent. Normal RV size and function. Mild LVH. Left atrial enlargement and right atrial enlargement. Mitral ring prosthesis with no stenosis however moderate mitral regurgitation was noted. Moderate aortic insufficiency with mild pulmonic insufficiency. Mild pulmonary hypertension with RVSP of 42 mmHg. no shortness of breath therefore will continue to follow clinically. However the patient has been educated that if her shortness of breath worsens we will repeat an echocardiogram. 2. Atrial fibrillation with RVR: she has an implantable loop monitor which was done on 06/04/2017. Device interrogation shows few episodes of atrial fibrillation. we will continue rate control and oral anticoagulation. AF with RVR - Lovonex. Cardizem infusion. TIO assisted direct external electrical cardioversion today. 3. Hypertension: We will continue lisinopril. 4. Hyperlipidemia: Continue statin therapy. Lipid profile done on 04/29/2017 showed total cholesterol 187, triglyceride 68, HDL 70, LDL 103. 5. CKD: Follows Dr. Haddad. 6. Chest heaviness: EKG and serial troponins were negative. I will recommend pharmacological nuclear stress testing. Thank you for your consultation. Please call me if you have any questions. Elen Rodriguez MD, FACP, FACC, FSCAI, FHRS, CCDS Interventional Cardiology Cardiac Electrophysiology Vascular Medicine and Endovascular Interventions Clinical Quality Measures AMI/AHF: ASA po Prior to arrival: Ena Wilks MD Nov 10, 2017 12:52 pm
[2017-11-10] MEDS ORDERED: DILTIAZEM 120 MG (CARDIZEM CD) CAP PO SCH (15:30)
--- NOTE | 2017-11-10 16:39 | Progress Note-Standard ---
Standard Progress Note Progress Notes/Assess & Plan Date Seen by Provider: Nov 10, 2017 Time Seen by Provider: 14:30 Progress/Assessment & Plan Anesthesia Note ([id number]) Called to ICU 8 for sedation (MAC) for TIO/Cardioversion. Pt ID, S/E. Versed 2 mg IV and Propofol 100 mg IV given in divided doses during procedure. VSS throughout and EtCO2 monitored throughout. Pt tolerated the procedure well and returned to . Will be available if needed. BALJEET CHANEY DO Nov 10, 2017 16:39
[2017-11-10] MEDS ORDERED: DILT120C63 PO (17:34)
[2017-11-10] MEDS ORDERED: ENOX60DI7 SC (17:36)
[2017-11-10] MEDS ORDERED: ATORVASTATIN 20 MG (LIPITOR) TABLET PO SCH (21:00)
[2017-11-10] MEDS ORDERED: lisINopril 20 MG (ZESTRIL) TAB PO SCH (21:00)
[2017-11-10] MEDS ORDERED: LACTOBACILLUS Acidoph/Bulgar (LACTINEX/FLORANEX) TAB PO SCH (21:00)
[2017-11-10] MEDS ORDERED: warFARin 2.5 MG (COUMADIN) TAB PO SCH (22:00)
[2017-11-11] MEDS ORDERED: LEVOTHYROXINE 125 MCG (LEVOTHROID) TABLET PO SCH (06:30)
[2017-11-11] MEDS ORDERED: VITAMIN D3 1,000 UNITS (CHOLECALCIFEROL) TABLET PO SCH (07:00)
[2017-11-11] MEDS ORDERED: MAGNESIUM OXIDE (MAG-OX)400 MG TAB PO SCH (08:00)
--- NOTE | 2017-11-11 09:59 | Discharge Summary-Hospitalist ---
Diagnosis/Chief Complaint Date of Admission Nov 09, 2017 at 15:30 Date of Discharge Nov 10, 2017 at 18:15 Discharge Date: Nov 10, 2017 Admission Diagnosis Assessment: Status post atrial fibrillation with rapid ventricular response requiring Cardizem drip and cardioversion is planned today Hypertension Hyperlipidemia Previous nephrectomy Insomnia Hypothyroidism Discharge Diagnosis Assessment: Status post atrial fibrillation with rapid ventricular response requiring Cardizem drip and successful cardioversion Hypertension Hyperlipidemia Previous nephrectomy Insomnia Hypothyroidism Plan: Maintain rate control medication well in ICU and will undergo cardioversion today by cardiology Reconcile all home meds Maintain anticoagulation Monitor closely Discharge Summary Discharge Physical Examination Allergies: Coded Allergies: acetaminophen (Verified Allergy, Unknown, 10/10/17) hydrocodone (Verified Allergy, Unknown, 10/10/17) Uncoded Allergies: SULFA (Allergy, Unknown, 10/10/17) Vitals & I&Os Vital Signs Date Time Temp Pulse Resp B/P (MAP) Pulse Ox O2 Delivery O2 Flow Rate FiO2 11/10/17 18:00 11/10/17 18:00 Room Air 11/10/17 17:45 60 17 97 11/10/17 16:59 97.0 11/10/17 14:30 2.00 Hospital Course Hospital course: Patient had a brief hospital course in the ICU due to atrial fibrillation with rapid ventricular response requiring Cardizem drip and ultimately stabilized had no ill effects from the tachycardia and she underwent successful cardioversion and was deemed stable for discharge on all cardiac meds and would have close follow-up with cardiology. Discharge Home Medications: Active Scripts Active Enoxaparin Sodium 60 Mg/0.6 Ml Syringe 60 Mg SC Q12H 3 Days Diltiazem 24Hr Cd (Diltiazem HCl) 120 Mg Cap.er.24h 120 Mg PO DAILY 30 Days Reported Vitamin D3 (Cholecalciferol (Vitamin D3)) 2,000 Unit Capsule 2,000 Unit PO DAILY Magnesium 250 Mg Tablet 250 Mg PO DAILY Calcium (Calcium Carbonate) 500 Mg Tablet 500 Mg PO DAILY Probiotic (L.acidoph & Paracasei,B.lactis) 1 Each Capsule 1 Cap PO HS Tramadol HCl 50 Mg Tablet 50 Mg PO DAILY PRN Zolpidem Tartrate 10 Mg Tablet 10 Mg PO HS PRN Warfarin Sodium 2.5 Mg Tablet 1.25 Mg PO THFRSA@2200 TAKES 1/2 OF A (2.5 MG) TABLET Atorvastatin Calcium 20 Mg Tablet 20 Mg PO HS Levothyroxine Sodium 125 Mcg Tablet 125 Mcg PO DAILY Warfarin Sodium 2.5 Mg Tablet 2.5 Mg PO SUMOTUWE@2200 Lisinopril 20 Mg Tablet 20 Mg PO BID Lorazepam 1 Mg Tablet 0.5 Mg PO DAILY PRN TAKES 1/2 OF A (1 MG) TABLET Instructions to patient/family Please see electronic discharge instructions given to patient. Clinical Quality Measures AMI/AHF: ASA po Prior to arrival: No DVT/VTE Risk/Contraindication: Risk Factor Score Per Nursin RFS Level Per Nursing on Admit: 2=Moderate LOUISE CLEVELAND DO Nov 11, 2017 09:59
--- NOTE | 2017-11-12 00:32 | OPERATIVE REPORT ---
DATE OF SERVICE: DIRECT EXTERNAL CARDIOVERSION REFERRING PHYSICIAN: Dr. Angelica Beard. PERFORMING PHYSICIAN: Esperanza Rodriguez MD INDICATION: Atrial fibrillation with rapid ventricular rate. PROCEDURE DETAILS: Cardioversion was performed in the ICU. It was done with anesthesia support. Transesophageal echocardiogram was done immediately before the procedure, which showed no cardiac thrombus. A successful cardioversion was performed with a single 200 joule synchronized shock, which converted the patient to sinus rhythm. The patient tolerated the procedure well, did not have any complication. CONCLUSION: 1. Successful external cardioversion to sinus rhythm. 2. Continue Lovenox till the patient sees Dr. Beard on Thursday and also continue warfarin. Job ID: [id number] DocumentID: [id number] Dictated Date: 11/11/2017 13:58:31 Floor Surfacer Date: 11/12/2017 00:19:07 Dictated By: ESPERANZA RODRIGUEZ MD
[2017-11-12] MEDS ORDERED: warFARin 2.5 MG (COUMADIN) TAB PO SCH (22:00)
== END 2017-11-10 18:15 | disposition home or self-care (01) | DRG 310 ==
LOC: EDUNIT# 15:14 → ER 15:16 → ICU 15:30
PROVIDERS: ADMIT Internal Medicine; ATTEND Family Medicine
PROC: 5A2204Z Restoration of Cardiac Rhythm, Single (ICD-10-PCS; principal; 2017-11-10)
DX: I48.0 Paroxysmal atrial fibrillation (principal); Z95.2 Presence of prosthetic heart valve; E78.00 Pure hypercholesterolemia, unspecified; E78.5 Hyperlipidemia, unspecified; I12.9 Hypertensive chronic kidney disease with stage 1 through stage 4 chronic kidney disease, or unspecified chronic kidney disease; N18.9 Chronic kidney disease, unspecified; E03.9 Hypothyroidism, unspecified; R07.89 Other chest pain; Z66 Do not resuscitate; Z90.5 Acquired absence of kidney; G47.00 Insomnia, unspecified; Z88.2 Allergy status to sulfonamides; Z79.01 Long term (current) use of anticoagulants
CPT/HCPCS: 36415; 71010; 80048; 80053; 80061; 83735; 83874; 83880; 84100; 84439; 84443; 84484; 85025; 85610; 85730; 93005; 93041; 93320; 93325; 96361; 96365; 96366; 96372

== ENCOUNTER 2021-06-11 16:48 | Day surgery (SDC) | payer MEDICARE ==
[~2021-06-11] VITALS: Ht 149 cm; Wt 58.9 kg
[~2021-06-11 16:48] MED LIST changes: +CALC-823 PO; +CHOL20003 PO; +DILT120C88 PO; +ENOX60DI7 SC; +L.AC1CAP6 PO; -LISI-552 PO; +LISI20TA26 PO; +MAGN250T2 PO; +TRM50T PO; -WARF2.5T82 PO; +WRF2.5T PO; +ZOLP10TA5 PO
--- NOTE | 2021-06-11 16:59 | ED Chest Pain ---
General Stated Complaint: CHEST PAIN, LEG PAIN Source: patient Exam Limitations: no limitations History of Present Illness Date Seen by Provider: Jun 11, 2021 Time Seen by Provider: 16:58 Initial Comments This is an 86-year-old female who presents to the ER via [facility] with complaints of chest pain since last night. States she woke this morning and pain was more severe. Has not ate much of anything today. Has had pain like this in the past however it was more GI versus cardiac related. Feels that this is the same issue and she usually takes her pepcid and pepto, however she has not taken anything today. She received 1 nitro tablet per EMS upon arrival that did not affect her pain but did significantly decrease her blood pressure. Describes as a pressure sensation in her lower sternum that radiates up into her right chest. No aggravating or alleviating features. No fever, chills, cough, shortness of breath, nausea, vomiting, diarrhea, abdominal pain. No known ill contacts or COVID exposure. Allergies and Home Medications Allergies Coded Allergies: acetaminophen (Verified Allergy, Unknown, 10/10/17) hydrocodone (Verified Allergy, Unknown, 10/10/17) Uncoded Allergies: SULFA (Allergy, Unknown, 10/10/17) Home Medications Atorvastatin Calcium 20 Mg Tablet, 20 MG PO HS, (Reported) Calcium Carbonate 500 Mg Tablet, 500 MG PO DAILY, (Reported) Cholecalciferol (Vitamin D3) 2,000 Unit Capsule, 2,000 UNIT PO DAILY, (Reported) Diltiazem HCl 120 Mg Cap.er.24h, 120 MG PO DAILY Prescribed by: PARAMJIT GRIGGS on 11/10/17 173 Enoxaparin Sodium 60 Mg/0.6 Ml Syringe, 60 MG SC Q12H Prescribed by: PARAMJIT GRIGGS on 11/10/17 1736 L.acidoph & Paracasei,B.lactis 1 Each Capsule, 1 CAP PO HS, (Reported) Levothyroxine Sodium 125 Mcg Tablet, 125 MCG PO DAILY, (Reported) Lisinopril 20 Mg Tablet, 20 MG PO BID, (Reported) Lorazepam 1 Mg Tablet, 0.5 MG PO DAILY PRN for ANXIETY, (Reported) TAKES 1/2 OF A (1 MG) TABLET Magnesium 250 Mg Tablet, 250 MG PO DAILY, (Reported) Tramadol HCl 50 Mg Tablet, 50 MG PO DAILY PRN for PAIN-MODERATE, (Reported) Warfarin Sodium 2.5 Mg Tablet, 2.5 MG PO SuMoTuWe@2200, (Reported) Warfarin Sodium 2.5 Mg Tablet, 1.25 MG PO ThFrSa@2200, (Reported) TAKES 1/2 OF A (2.5 MG) TABLET Zolpidem Tartrate 10 Mg Tablet, 10 MG PO HS PRN for SLEEP, (Reported) Patient Home Medication List Home Medication List Reviewed: Yes Review of Systems Review of Systems Constitutional: no symptoms reported EENTM: No Symptoms Reported Respiratory: No Symptoms Reported Cardiovascular: See HPI Gastrointestinal: No Symptoms Reported Genitourinary: No Symptoms Reported Musculoskeletal: no symptoms reported Skin: no symptoms reported Psychiatric/Neurological: No Symptoms Reported Endocrine: No Symptoms Reported Hematologic/Lymphatic: No Symptoms Reported Past Bcpmidv-Syyzmv-Veymzm Hx Seasonal Allergies Seasonal Allergies: No Past Medical History Surgeries: Yes ( L KIDNEY REMOVED) Hysterectomy, Orthopedic, Renal, Valve Replacement Respiratory: No Cardiac: Yes (MITRAL VALVE REPAIR/IMPLANT THAT MONITOR A FIB) Atrial Fibrillation, High Cholesterol, Hypertension, Valvular Heart Disease 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 4.8oz. 60.278035br; 26.0 BMI Method:Stated General Appearance: No Apparent Distress, WD/WN HEENT: PERRL/EOMI, Normal ENT Inspection, Pharynx Normal, Moist Mucous Membranes Neck: Full Range of Motion, Normal Inspection, Non Tender, Supple Respiratory: Lungs Clear, Normal Breath Sounds, No Accessory Muscle Use, No Respiratory Distress, Other (chest tender to touch ) Cardiovascular: No Edema, No Gallop, Systolic Murmur, Friction Rub, Irregularly Irregular Gastrointestinal: Normal Bowel Sounds, Non Tender, Soft; No Hepatomegaly, No Splenomegaly Extremity: Normal Capillary Refill, Normal Inspection, Normal Range of Motion, No Calf Tenderness, No Pedal Edema Neurologic/Psychiatric: Alert, Oriented x3 (forgetful ), No Motor/Sensory Deficits, Normal Mood/Affect Skin: Normal Color, Warm/Dry Progress/Results/Core Measures Results/Orders Lab Results Laboratory Tests Test 06/11/21 17:04 06/11/21 19:10 Range/Units White Blood Count 5.2 4.3-11.0 10^3/uL Red Blood Count 4.53 3.80-5.11 10^6/uL Hemoglobin 13.5 11.5-16.0 g/dL Hematocrit 42 35-52 % Mean Corpuscular Volume 92 80-99 fL Mean Corpuscular Hemoglobin 30 25-34 pg Mean Corpuscular Hemoglobin Concent 33 32-36 g/dL Red Cell Distribution Width 15.4 H 10.0-14.5 % Platelet Count 268 130-400 10^3/uL Mean Platelet Volume 9.8 9.0-12.2 fL Immature Granulocyte % (Auto) 0 % Neutrophils (%) (Auto) 70 42-75 % Lymphocytes (%) (Auto) 13 12-44 % Monocytes (%) (Auto) 11 0-12 % Eosinophils (%) (Auto) 5 0-10 % Basophils (%) (Auto) 1 0-10 % Neutrophils # (Auto) 3.6 1.8-7.8 10^3/uL Lymphocytes # (Auto) 0.7 L 1.0-4.0 10^3/uL Monocytes # (Auto) 0.6 0.0-1.0 10^3/uL Eosinophils # (Auto) 0.3 0.0-0.3 10^3/uL Basophils # (Auto) 0.0 0.0-0.1 10^3/uL Immature Granulocyte # (Auto) 0.0 0.0-0.1 10^3/uL Prothrombin Time 27.7 H 12.2-14.7 SEC INR Comment 2.5 H 0.8-1.4 Activated Partial Thromboplast Time 51 H 24-35 SEC D-Dimer 0.30 0.00-0.49 UG/ML Sodium Level 139 135-145 MMOL/L Potassium Level 3.8 3.6-5.0 MMOL/L Chloride Level 102 98-107 MMOL/L Carbon Dioxide Level 24 21-32 MMOL/L Anion Gap 13 5-14 MMOL/L Blood Urea Nitrogen 23 H 7-18 MG/DL Creatinine 1.40 H 0.60-1.30 MG/DL Estimat Glomerular Filtration Rate 36 BUN/Creatinine Ratio 16 Glucose Level 88 70-105 MG/DL Calcium Level 8.7 8.5-10.1 MG/DL Corrected Calcium 8.7 8.5-10.1 MG/DL Magnesium Level 2.2 1.6-2.4 MG/DL Total Bilirubin 0.6 0.1-1.0 MG/DL Aspartate Amino Transf (AST/SGOT) 42 H 5-34 U/L Alanine Aminotransferase (ALT/SGPT) 47 0-55 U/L Alkaline Phosphatase 90 40-136 U/L Myoglobin 77.4 10.0-92.0 NG/ML Troponin I < 0.028 < 0.028 <0.028 NG/ML B-Type Natriuretic Peptide 180.6 H <100.0 PG/ML Total Protein 6.3 L 6.4-8.2 GM/DL Albumin 4.0 3.2-4.5 GM/DL My Orders Orders - DANIELLE SCHREIBER APRN Cbc With Automated Diff (06/11/21 16:56) Magnesium (06/11/21 16:56) Chest 1 View, Ap/Pa Only (06/11/21 16:56) Ekg Tracing (06/11/21 16:56) Comprehensive Metabolic Panel (06/11/21 16:56) Myoglobin Serum (06/11/21 16:56) Protime With Inr (06/11/21 16:56) Partial Thromboplastin Time (06/11/21 16:56) O2 (06/11/21 16:56) Monitor-Rhythm Ecg Trace Only (06/11/21 16:56) Ed Iv/Invasive Line Start (06/11/21 16:56) BNP (06/11/21 16:56) Troponin I (06/11/21 16:56) Lidocaine 2% Viscous 15 Ml (Xylocaine Vi (06/11/21 17:30) Antacid Suspension (Mylanta Suspension (06/11/21 17:30) Fibrin Degradation Products (06/11/21 17:04) Simethicone Tablet (Mylicon Chewable Tab (06/11/21 18:30) Troponin I (06/11/21 18:59) Famotidine Injection (Pepcid Injection) (06/11/21 20:00) Alprazolam Tablet (Xanax Tablet) (7/20/21 20:45) Medications Given in ED Vital Signs/I&O 06/11/21 06/11/21 16:58 16:58 Pulse 87 Resp 12 B/P (MAP) 182/73 (109) Pulse Ox 96 O2 Delivery Room Air Room Air Progress Progress Note : Progress Note Patient examined and in no acute distress. EMS reports significant drop in BP with Nitro. Initial BP upon arrival 180's and decreased to 120's withing 15 minutes. No additional Nitro given at this time as this did not help her pain. Orders given for cardiac workup. She is resting comfortably on ED cot. States " I dont think its my heart". Concerned this is more GI related as she had not taken any of her antacid medications today. Orders given for GI cocktail and will re-evaluate. Through ED course patient was noted to be very forgetful. Granddaughter reports this is her baseline and has been occurring more frequently. Labs reviewed and are relatively unremarkable. Troponin neg. Will repeat due to persistent symptoms. Reports GI-Cocktail did nothing for her symptoms and her discomfort in increasing into her neck. Offered Morphine to see if this would help with her symptoms. Declined stating she feels her symptoms are not cardiac related. Orders given for Pepcid 20mg IVP. Continued to report no improvement of symptoms. Asked what has helped in the past and she stated "nothing, it usually goes away on its own". Reviewed previous chart from 2017 where patient had reports of chest heaviness that was unrelieved through her ED course. She states the pain went away on its own the next day after that ED visit. She had close follow up with cardiology outpatient at that time. Repeat troponin neg. Reviewed case with Dr. Khalil with Cardiology, recommended admission for observation due to extensive cardiac history and persistent chest pain. 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 Initial ECG Impression Date: Jun 11, 2021 Initial ECG Impression Time: 16:51 Initial ECG Rate: 83 Initial ECG Rhythm: A Fib/Flutter Initial ECG Impression: Atrial Fibrillation Comment Atrial Flutter with 3:1 AV block Diagnostic Imaging Diagonstic Imaging: Xray Plain Films/CT/US/NM/MRI: chest Comments [facility]. [place], [place] NAME: RADHASHERRI MED REC#: [id number] PT STATUS: REG ER : 1935 PHYSICIAN: DANIELLE SCHREIBER APRN ADMIT DATE: 06/11/21/ER Draft Date of Exam:06/11/21 CHEST 1 VIEW, AP/PA ONLY INDICATION: Coronary artery disease, chest pain. COMPARISON: 11/10/2017. FINDINGS: Single view of the chest demonstrates cardiac enlargement with mild central vascular congestion. No large effusion is seen. There is no pneumothorax. Sternal wires are midline. Osseous structures are stable. IMPRESSION: Cardiac enlargement with mild central vascular congestion. Dictated on workstation # [id number] Dict: 06/11/21 1758 Trans: 06/11/21 1800 [id number] Interpreted by: MARILYN GO Electronically signed by: Reviewed: Reviewed by Me CP/AMI: Nitrates Departure Communication (Admissions) Time/Spoke to Admitting Phy: 21:30 Dr. Cash Time/Spoke to Consulting Phy: 21:[address] Khalil with Cardiology at this time. Impression Primary Impression: Chest pain Disposition: ADMITTED INPATIENT Condition: Stable Admissions Decision to Admit Reason: Admit from ER (General) Decision to Admit/Date: Jun 11, 2021 Time/Decision to Admit Time: 21:32 Departure-Patient Inst. Referrals: GRUPO LANDRUM MD (PCP/Family) Primary Care Physician DANIELLE SCHREIBER APRN Jun 11, 2021 16:59
[2021-06-11 17:25] LABS: BASOPHILS % (AUTO) 1 % (0-10); EOSINOPHILS # (AUTO) 0.3 10^3/uL (0.0-0.3); EOSINOPHILS % (AUTO) 5 % (0-10); HEMATOCRIT 42 % (35-52); HEMOGLOBIN 13.5 g/dL (11.5-16.0); LYMPHOCYTES # (AUTO) 0.7 10^3/uL (1.0-4.0); LYMPHOCYTES % (AUTO) 13 % (12-44); MEAN CORPUSCULAR HEMOGLOBIN 30 pg (25-34); MEAN CORPUSCULAR HGB CONC 33 g/dL (32-36); MEAN CORPUSCULAR VOLUME 92 fL (80-99); MEAN PLATELET VOLUME 9.8 fL (9.0-12.2); MONOCYTES # (AUTO) 0.6 10^3/uL (0.0-1.0); MONOCYTES % (AUTO) 11 % (0-12); NEUTROPHILS # (AUTO) 3.6 10^3/uL (1.8-7.8); NEUTROPHILS % (AUTO) 70 % (42-75); PLATELET COUNT 268 10^3/uL (130-400); WHITE BLOOD COUNT 5.2 10^3/uL (4.3-11.0)
[2021-06-11] MEDS ORDERED: ANTACID SUSP 30 ML UDC (MYLANTA) PO ONE (17:30)
[2021-06-11] MEDS ORDERED: LIDOCAINE 2% VISCOUS 15 ML UDC PO ONE (17:30)
[2021-06-11 17:39] LABS: POTASSIUM 3.8 MMOL/L (3.6-5.0)
[2021-06-11 17:40] LABS: CALCIUM 8.7 MG/DL (8.5-10.1)
[2021-06-11 17:41] LABS: TOTAL PROTEIN 6.3 GM/DL (6.4-8.2)
[2021-06-11 17:43] LABS: BILIRUBIN,TOTAL 0.6 MG/DL (0.1-1.0)
[2021-06-11 17:45] LABS: CREATININE SERUM 1.4 MG/DL (0.60-1.30)
[2021-06-11 17:48] LABS: MAGNESIUM 2.2 MG/DL (1.6-2.4)
[2021-06-11 17:58] LABS: FIBRIN DEGRADATION PRODUCTS 0.3 UG/ML (0.00-0.49); INR 2.5 (0.8-1.4); PROTHROMBIN TIME PATIENT 27.7 SEC (12.2-14.7)
--- NOTE | 2021-06-11 18:00 | Diagnostic Imaging Report ---
INDICATION: Coronary artery disease, chest pain. COMPARISON: 11/10/2017. FINDINGS: Single view of the chest demonstrates cardiac enlargement with mild central vascular congestion. No large effusion is seen. There is no pneumothorax. Sternal wires are midline. Osseous structures are stable. IMPRESSION: Cardiac enlargement with mild central vascular congestion. Dictated by: Dictated on workstation # [id number]
[2021-06-11] MEDS ORDERED: SIMETHICONE 80 MG (MYLICON) CHEW PO ONE (18:30)
[2021-06-11] MEDS ORDERED: FAMOTIDINE 20MG/2ML IV (PEPCID) IVP ONE (20:00)
[2021-06-11] MEDS ORDERED: ALPRAZolam 0.5 MG (XANAX) TAB PO SCH (20:45)
[2021-06-11 23:07] VITALS: BP 125/78
[2021-06-11] MEDS ORDERED: morphine INJ 4 MG/ML 1 ML (VIAL/SYRINGE) IVP PRN (23:15)
[2021-06-11] MEDS ORDERED: NITROGLYCERIN 0.4 MG SL TABS BTL 25'S SL PRN (23:15)
[2021-06-11] MEDS ORDERED: ACETAMINOPHEN 325 MG TABLET PO PRN (23:15)
[2021-06-11] MEDS ORDERED: CALCIUM CARBONATE 500 MG (TUMS) TAB.CHEW PO PRN (23:15)
[2021-06-11] MEDS ORDERED: ONDANSETRON 4 MG/2 ML (SDV) Z0FRAN IVP PRN (23:15)
[2021-06-11] MEDS: ALPRAZolam 0.25 MG (XANAX) TAB PO PRN (23:49)
[2021-06-11 23:59] VITALS: BP 182/109
[2021-06-12] VITALS (10 sets, daily range): BP systolic 96–129; BP diastolic 47–82
[2021-06-12] MEDS ORDERED: RT-ALBUTEROL INHALER HFA (VENTOLIN HFA) 18 GM IH PRN (00:15)
[2021-06-12 03:17] LABS: BASOPHILS % (AUTO) 1 % (0-10); EOSINOPHILS # (AUTO) 0.2 10^3/uL (0.0-0.3); EOSINOPHILS % (AUTO) 5 % (0-10); HEMATOCRIT 39 % (35-52); HEMOGLOBIN 12.5 g/dL (11.5-16.0); LYMPHOCYTES % (AUTO) 20 % (12-44); MEAN CORPUSCULAR HEMOGLOBIN 29 pg (25-34); MEAN CORPUSCULAR HGB CONC 32 g/dL (32-36); MEAN CORPUSCULAR VOLUME 92 fL (80-99); MEAN PLATELET VOLUME 9.6 fL (9.0-12.2); MONOCYTES # (AUTO) 0.6 10^3/uL (0.0-1.0); MONOCYTES % (AUTO) 12 % (0-12); NEUTROPHILS # (AUTO) 2.9 10^3/uL (1.8-7.8); NEUTROPHILS % (AUTO) 62 % (42-75); PLATELET COUNT 230 10^3/uL (130-400); WHITE BLOOD COUNT 4.7 10^3/uL (4.3-11.0)
[2021-06-12 03:45] LABS: CHLORIDE 106 MMOL/L (98-107); POTASSIUM 3.4 MMOL/L (3.6-5.0); SODIUM 140 MMOL/L (135-145)
[2021-06-12 03:47] LABS: CALCIUM 8.5 MG/DL (8.5-10.1); GLUCOSE 95 MG/DL (70-105)
[2021-06-12 03:49] LABS: CARBON DIOXIDE 24 MMOL/L (21-32)
[2021-06-12 03:51] LABS: CREATININE SERUM 1.18 MG/DL (0.60-1.30); GFR ESTIMATED 44
[2021-06-12 03:52] LABS: BUN/CREATININE RATIO 19
--- NOTE | 2021-06-12 06:04 | Short Stay Summary-Hospitalist ---
History of Present Illness HPI/Chief Complaint CC: Chest pressure HPI: This is an 86yoWF of [facility] who had just moved to the area who presented with indigestion and chest pressure. She will undergo stress test by Dr. Khalil and she has never had an EGD before so I will consult Dr. Krishnamurthy for EGD. Source: patient Exam Limitations: no limitations Date Seen 06/12/21 Time Seen by a Provider: 10:00 Attending Physician Jennifer Cash Holly R MD Referring Physician Date of Admission Jun 11, 2021 at 22:15 Home Medications & Allergies Home Medications Reviewed patient Home Medication Reconciliation performed by pharmacy medication reconciliations firestopper technician and/or nursing. Patients Allergies have been reviewed. Allergies Allergies Coded Allergies acetaminophen (Verified Allergy, Unknown, 10/10/17) hydrocodone (Verified Allergy, Unknown, 10/10/17) Uncoded Allergies SULFA ( Allergy, Unknown, 10/10/17) Past Zomhqxo-Mmhdvw-Rcsxdj Hx Patient Social History Marrital Status: single Employed/Student: retired Tobacco Use?: No Smoking Status: Former Smoker Substance use?: No Alcohol Use?: No Pt feels they are or have been: No Immunizations Up To Date Date of Influenza Vaccine: Sep 30, 2017 First/Initial COVID19 Vaccinat: JANUARY 2021 Second COVID19 Vaccination Zan: JANUARY 2021 Date of Pneumonia Vaccine: Nov 09, 2011 Seasonal Allergies Seasonal Allergies: No Current Status Advance Directives: No Communicates: Verbally Primary Language: Indian Preferred Spoken Language: Indian Is interpretation needed?: No Past Medical History Surgeries: Hysterectomy, Orthopedic, Renal, Valve Replacement Atrial Fibrillation, High Cholesterol, Hypertension, Valvular Heart Disease 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 4.8oz. [id number]; 26.21 BMI Method:Stated General Appearance: No Apparent Distress, WD/WN, Chronically ill, Thin Neck: Full Range of Motion, Normal Inspection, Non Tender, Supple, Carotid Bruit Respiratory: Chest Non Tender, Lungs Clear, Normal Breath Sounds, No Accessory Muscle Use, No Respiratory Distress Cardiovascular: No Edema, No Gallop, No JVD, No Murmur, Normal Peripheral P ulses, Irregularly Irregular Neurologic/Psychiatric: Alert, Oriented x3, No Motor/Sensory Deficits, Normal Mood/Affect Results Results/Procedures Labs Laboratory Tests 06/11/21 17:04 06/12/21 03:10 Patient resulted labs reviewed. Short Stay Diagnosis Discharge Diagnosis-Short Stay Admission Diagnosis Assessment: Chest pain Chronic atrial fibrillation Dysphagia Former smoker Hypertension Hyperlipidemia Final Discharge Diagnosis Assessment: Chest pain Chronic atrial fibrillation Dysphagia Former smoker Hypertension Hyperlipidemia Conclusion Plan Stress test EGD Diagnosis/Problems Diagnosis/Problems (1) Chest pain Status: Acute (2) Gastroesophageal reflux disease without esophagitis (3) Mixed hyperlipidemia (4) Permanent atrial fibrillation (5) Mitral regurgitation (6) Essential hypertension JENNIFER CASH DO Jun 12, 2021 06:04
[2021-06-12] MEDS ORDERED: REGADENOSON 0.4 MG/5 ML SYR (LEXISCAN) IV ONE ×2 (06:30→11:35)
--- NOTE | 2021-06-12 09:13 | Consultation-Cardiology ---
HPI-Cardiology Cardiology Consultation: Date of Consultation 06/12/2021 Date of Admission 06/11/2020 Attending Physician Jennifer Cash DO Admitting Physician Angelica Beard MD Consulting Physician RORY BOB JR, MD HPI: Time Seen by a Provider: 08:30 Chief Complaint: Reason for consultation: Chest pain. I had the pleasure of seeing Milady on the cardiac stepdown unit this morning. She has a history of paroxysmal atrial fibrillation, mitral valve disease status post repair, hypertension, hyperlipidemia, gastroesophageal reflux disease, and hypothyroidism. She just moved here from [place] in the beginning of April. She wanted to be closer to her daughter. She lives in a duplex in [place]. Yesterday when she woke up she had substernal chest tightness. This made her feel somewhat short of breath. At first, she thought this was her gastroesophageal reflux disease. However, the discomfort persisted for most of the day. She did not seek immediate medical attention. Then last evening the chest discomfort became worse. She called her daughter who then called 911 and she was brought to the emergency room for further evaluation. Overnight, the chest discomfort has subsided. She states this felt like a severe pressure in the center of her chest. She denies radiation. She does not recall ever having this sort of symptom in the past. She denies paroxysmal nocturnal dyspnea, orthopnea, palpitations, lightheadedness, or syncope. She has chronic, intermittent lower extremity edema and she takes oral furosemide as needed for the edema which then resolves. She does not smoke. Certain portions of this document may have been dictated utilizing voice recognition technology. Inherent to this technology, typographical and grammatical errors may exist. As much as I am diligent to identify and correct these mistakes, some errors may remain in the document. Review of Systems-Cardiology Review of Systems Other comments Review of 10 organ systems is as per the history of present illness, otherwise negative. PUL-Vzahrm-Plagpa Hx Patient Social History Smoking Status: Former Smoker Have you traveled recently?: No Alcohol Use?: No Pt feels they are or have been: No Immunizations Up To Date Date of Pneumonia Vaccine: Nov 09, 2011 Date of Influenza Vaccine: Sep 30, 2017 Past Medical History PMH As described under Assessment. Family Medical History Family Medical History: The patient does not know of any family history of premature coronary artery disease. Allergies and Home Medications Allergies Coded Allergies: acetaminophen (Verified Allergy, Unknown, 10/10/17) hydrocodone (Verified Allergy, Unknown, 10/10/17) Uncoded Allergies: SULFA (Allergy, Unknown, 10/10/17) Home Medications Amiodarone HCl 200 Mg Tablet, 200 MG PO HS, (Reported) Last Action: Reviewed Amlodipine Besylate 5 Mg Tablet, 5 MG PO DAILY, (Reported) Last Action: Reviewed Ascorbic Acid 500 Mg Capsule, 500 MG PO DAILY, (Reported) Last Action: Reviewed Atorvastatin Calcium 20 Mg Tablet, 20 MG PO DAILY, (Reported) Last Action: Reviewed Carboxymethylcellulos/Glycerin 15 Ml Drops, 1-2 DROPS OU PRN PRN for DRY EYES, (Reported) Last Action: Reviewed Cholecalciferol (Vitamin D3) 25 Mcg Capsule, 25 MCG PO DAILY, (Reported) Last Action: Reviewed Estradiol 42.5 Gm Cream.appl, 0.5 APPLIC VG HS, (Reported) Last Action: Reviewed Furosemide 20 Mg Tablet, 20 MG PO DAILY PRN for FLUID RETENTION, (Reported) Last Action: Reviewed Levothyroxine Sodium 150 Mcg Tablet, 150 MCG PO DAILY, (Reported) Last Action: Reviewed Lisinopril 20 Mg Tablet, 20 MG PO BID, (Reported) Last Action: Reviewed Lorazepam 1 Mg Tablet, 0.5 MG PO HS PRN for SLEEP, (Reported) TAKES OF A 1MG TAB Last Action: Reviewed Mag Hydrox/Al Hydrox/Simeth 30 Ml Oral.susp, 30 ML PO QID PRN for INDIGESTION, (Reported) Last Action: Reviewed Memantine HCl 5 Mg Tablet, 5 MG PO DAILY, (Reported) Last Action: Reviewed Pantoprazole Sodium 20 Mg Tablet.dr, 20 MG PO BID, (Reported) Last Action: Reviewed Tramadol HCl 50 Mg Tablet, 50 MG PO TID PRN for PAIN-MODERATE (5-7), (Reported) Last Action: Reviewed Warfarin Sodium 1 Mg Tablet, 1 MG PO CHAIREZ,MO,,TH,SA @HS, (Reported) Last Action: Reviewed Warfarin Sodium 3 Mg Tablet, 3 MG PO WE,THU @HS, (Reported) Last Action: Reviewed Patient Home Medication List Home Medication List Reviewed: Yes Exam Vital Signs Vital Signs Date Time Temp Pulse Resp B/P (MAP) Pulse Ox O2 Delivery O2 Flow Rate FiO2 06/12/21 16:00 35.9 80 18 123/78 (93) 95 Room Air 06/11/21 23:59 21 Physical Exam General: Alert. No acute distress. Well nourished and appears stated age. Eye: Extraocular movements are intact. Conjunctivae are clear. There are no xanthelasma. HENT: Normocephalic. Atraumatic. Carotid pulsations 2/2 without bruits. Neck: Jugular venous pressure does not appear elevated. No thyromegaly appreciated. Respiratory: Lungs are clear to auscultation. Respirations are non-labored. Breath sounds are equal. Symmetrical chest wall expansion. Cardiovascular: Normal rate. Irregular rhythm. 2/6 systolic ejection murmur. 1/6 diastolic murmur. No gallop. Point of maximal impulse is not appear displaced. Good pulses equal in all extremities. No edema. Gastrointestinal: Soft. Normal bowel sounds. Skin: Skin turgor is normal. There is no pallor. Musculoskeletal: No kyphosis or scoliosis appreciated. Neurologic: Alert and oriented to person, place, time. Cranial nerves 3-12 appear grossly intact. The patient has good motor tone strength in the upper and lower extremities bilaterally. Psychiatric: Cooperative. Appropriate mood & affect. Labs Laboratory Tests Test 06/11/21 19:10 06/12/21 03:10 Range/Units Troponin I < 0.028 < 0.028 <0.028 NG/ML White Blood Count 4.7 4.3-11.0 10^3/uL Red Blood Count 4.25 3.80-5.11 10^6/uL Hemoglobin 12.5 11.5-16.0 g/dL Hematocrit 39 35-52 % Mean Corpuscular Volume 92 80-99 fL Mean Corpuscular Hemoglobin 29 25-34 pg Mean Corpuscular Hemoglobin Concent 32 32-36 g/dL Red Cell Distribution Width 15.3 H 10.0-14.5 % Platelet Count 230 130-400 10^3/uL Mean Platelet Volume 9.6 9.0-12.2 fL Immature Granulocyte % (Auto) 0 % Neutrophils (%) (Auto) 62 42-75 % Lymphocytes (%) (Auto) 20 12-44 % Monocytes (%) (Auto) 12 0-12 % Eosinophils (%) (Auto) 5 0-10 % Basophils (%) (Auto) 1 0-10 % Neutrophils # (Auto) 2.9 1.8-7.8 10^3/uL Lymphocytes # (Auto) 1.0 1.0-4.0 10^3/uL Monocytes # (Auto) 0.6 0.0-1.0 10^3/uL Eosinophils # (Auto) 0.2 0.0-0.3 10^3/uL Basophils # (Auto) 0.0 0.0-0.1 10^3/uL Immature Granulocyte # (Auto) 0.0 0.0-0.1 10^3/uL Sodium Level 140 135-145 MMOL/L Potassium Level 3.4 L 3.6-5.0 MMOL/L Chloride Level 106 98-107 MMOL/L Carbon Dioxide Level 24 21-32 MMOL/L Anion Gap 10 5-14 MMOL/L Blood Urea Nitrogen 23 H 7-18 MG/DL Creatinine 1.18 0.60-1.30 MG/DL Estimat Glomerular Filtration Rate 44 BUN/Creatinine Ratio 19 Glucose Level 95 70-105 MG/DL Calcium Level 8.5 8.5-10.1 MG/DL ECG Impression ECG Comment Atrial fibrillation with a controlled ventricular rate with nonspecific intraventricular conduction delay, prolonged QT at 510 ms corrected, and nonspecific ST changes. Diagnosis/Problems Diagnosis/Problems (1) Chest pain Status: Acute Assessment & Plan: Her chest pain had resolved by this morning but is now returning. She had negative troponin levels. No ischemic changes on her electrocardiogram. Her nuclear stress test was completely normal. As such, I suspect her chest discomfort is noncardiac in origin and possibly due to esophageal reflux disease. She will have an upper endoscopy tomorrow. She can have a GI cocktail now for relief of her current chest pain. (2) Permanent atrial fibrillation Assessment & Plan: Heart rates are reasonably well controlled. She is on warfarin for stroke prophylaxis. (3) Mitral regurgitation Assessment & Plan: Her echocardiogram showed a normal ejection fraction with mild mitral regurgitation. She will need to follow-up with her regular semiconductor bonder in [place] after discharge. This is unlikely contributing to her current symptoms and is most likely a chronic finding.She does also have mild to moderate aortic regurgitation which also would not likely cause symptoms but will need to be followed longitudinally by her regular semiconductor bonder. (4) Essential hypertension Assessment & Plan: Continue outpatient antihypertensive medication. (5) Mixed hyperlipidemia Assessment & Plan: Continue atorvastatin. (6) Gastroesophageal reflux disease without esophagitis Assessment & Plan: This may be causing her chest discomfort. I increased her dose of pantoprazole. General surgery has seen the patient and plans on an upper endoscopy tomorrow. RORY BOB JR, MD Jun 12, 2021 09:13
[2021-06-12] MEDS ORDERED: PANTOPRAZOLE 40 MG (PROTONIX) TAB PO ONE (09:30)
[2021-06-12] MEDS ORDERED: CHOL10007 PO (10:14)
[2021-06-12] MEDS ORDERED: LEVO150T96 PO (10:14)
[2021-06-12] MEDS ORDERED: AMIO200T50 PO (10:14)
[2021-06-12] MEDS ORDERED: ESTR42.511 VG (10:14)
[2021-06-12] MEDS ORDERED: MAG30ORA2 PO (10:14)
[2021-06-12] MEDS ORDERED: LORA-405 PO (10:14)
[2021-06-12] MEDS ORDERED: TRAM50TA3 PO (10:14)
[2021-06-12] MEDS ORDERED: AMLO-250 PO (10:14)
[2021-06-12] MEDS ORDERED: ASCO500C17 PO (10:14)
[2021-06-12] MEDS ORDERED: FURO20TA4 PO (10:14)
[2021-06-12] MEDS ORDERED: PANT20TA18 PO (10:14)
[2021-06-12] MEDS ORDERED: MEMA5TAB43 PO (10:14)
[2021-06-12] MEDS ORDERED: WRF1T PO (10:14)
[2021-06-12] MEDS ORDERED: CARB15DR2 OU (10:14)
[2021-06-12] MEDS ORDERED: WARF3TAB56 PO (10:14)
[2021-06-12] MEDS: FAMOTIDINE 20 MG (PEPCID) TABLET PO SCH (13:56)
[2021-06-12] MEDS: dilTIAZem120 MG (CARDIZEM CD) CAP PO SCH (13:57)
--- NOTE | 2021-06-12 16:13 | Conscious Sedation/ASA ---
Conscious Sedation Pre-Proced Time 16:00 ASA Score 2 For ASA 3 and 4: Consider anesthesia and medical clearance. Also, for patients with a history of failed moderate sedation consider anesthesia. Airway Lungs Heart ASA score ASA 1: a normal healthy patient ASA 2: a patient with a mild systemic disease (mid diabetes, controlled hypertension, obesity ASA 3: a patient with a severe systemic disease that limits activity (angina, COPD, prior Myocardial infarction) ASA 4: a patient with an incapacitating disease that is a constant threat to life (CHF, renal failure) ASA 5: a moribund patient not expected to survive 24 hrs. (ruptured aneurysm) ASA 6: a declared brain- patient whose organs are being harvested. For emergent operations, add the letter E after the classification Mallampati Classification Grade 2 Sedation Plan Analgesia, Amnesia, Plan communicated to team members, Discussed options with patient/fam, Discussed risks with patient/fam The patient is an appropriate candidate to undergo the planned procedure, sedation, and anesthesia. The patient immediately re-assessed prior to indication. ALTAF PENALOZA MD Jun 12, 2021 16:13
--- NOTE | 2021-06-12 16:14 | Progress Note-Pre Operative ---
Pre-Operative Progress Note H&P Reviewed The H&P was reviewed, patient examined and no changes noted. Date Seen by Provider: Jun 12, 2021 Time Seen by Provider: 16:00 Date H&P Reviewed: Jun 12, 2021 Time H&P Reviewed: 16:00 Pre-Operative Diagnosis: epigastric and substernal chest pain ALTAF PENALOZA MD Jun 12, 2021 16:14
--- NOTE | 2021-06-12 16:28 | CONSULTATION REPORT ---
DATE OF SERVICE: 06/12/2021 ADMITTING PHYSICIAN: Dr. Cash. HISTORY OF PRESENT ILLNESS: The patient is an 86-year-old female who presented with chest pain. She does have number of past medical history including atrial fibrillation, mitral valve disease as well as hypertension, hyperlipidemia, gastroesophageal reflux disease. She just moved here from [place] in the beginning of April. She woke up with substernal chest tightness as well as did feel somewhat short of breath. She also reported some nausea; however, no vomiting. She was admitted and cardiology was consulted and underwent a cardiac workup, which was negative. Upon further questioning, she reports that she has had this issue before in the past with a substernal burning sensation and has had a longstanding history of gastroesophageal reflux disease; however, this has become worse over time. She does not report any hematemesis or coffee-ground emesis. PAST MEDICAL HISTORY: Hypertension, hypercholesterolemia, gastroesophageal reflux disease, atrial fibrillation, mitral valve disease, hyperlipidemia, hypothyroid. PAST SURGICAL HISTORY: Mitral valve repair, partial hysterectomy, cholecystectomy. ALLERGIES: HYDROCODONE, SULFA. MEDICATIONS: Atorvastatin 20 mg daily, diltiazem 120 mg daily, enoxaparin 60 mg q.12h., levothyroxine 125 mcg daily, lisinopril 20 mg b.i.d., lorazepam 1 mg daily p.r.n., tramadol 50 mg p.r.n. Coumadin 2.5 mg 4 days a week, 1.25 mg 3 days a week, zolpidem 10 mg each day at bedtime. SOCIAL HISTORY: Previous smoker, negative alcohol. FAMILY HISTORY: Noncontributory. VITAL SIGNS: Temperature 35.9, blood pressure 123/70, pulse 80, respirations 18, pulse ox 95% on room air. REVIEW OF SYSTEMS: Well-nourished female currently in no acute distress. She is not experiencing any shortness of breath or difficulty breathing. She does have intermittent episodes of substernal chest burning sensation as well as crampy pain and this is associated with some nausea; however, no vomiting. No known hematemesis, no coffee ground emesis. No diarrhea, constipation, no red blood per rectum, no dark tarry stools. No fever or chills, no recent inadvertent weight loss. All other review of systems negative. PHYSICAL EXAMINATION: CHEST: Few scattered rales bilaterally. HEART: Regular, no murmurs. EXTREMITIES: No lower extremity edema, negative Homans sign. HEENT: No scleral icterus. NECK: No cervical lymphadenopathy. ABDOMEN: Soft, nondistended. There is mild discomfort in the epigastric region upon deep palpation. No peritoneal signs. No hernias. SKIN: Warm, dry. LABORATORY DATA: WBC 4.7, hemoglobin 12.5, hematocrit 39, platelets 230, BUN 23, creatinine 1.18. INR is 2.5. ASSESSMENT AND PLAN: An 86-year-old female with symptomatic epigastric and substernal pain, likely consistent with gastroesophageal reflux disease. She has not had an upper endoscopy done before in the past and we will proceed with an EGD on this admission for proper diagnosis as well as to formulate a treatment modality. Job ID: [id number] DocumentID: [id number] Dictated Date: 06/12/2021 16:11:03 Penal Officer Date: 06/12/2021 16:27:52 Dictated By: ALTAF PENALOZA MD
--- NOTE | 2021-06-12 17:57 | NUCLEAR STRESS TEST ---
REGADENOSON NUCLEAR STRESS Date of procedure: 06/12/2021. Primary care provider: Angelica Beard MD Admitting physician: Janet Cash DO. INDICATION: Chest pain and abnormal ECG. BASELINE ELECTROCARDIOGRAM: Atrial fibrillation with a ventricular rate of 63 bpm with low voltage in the precordial leads, nonspecific intraventricular conduction delayAnd nonspecific ST-T wave changes. STRESS TEST PROCEDURE: The patient was administered 0.4 mg of intravenous Regadenoson. The resting heart rate was 63 bpm and the peak heart rate was 80 bpm. The resting blood pressure was 119/70 mmHg and the minimum blood pressure was 117/65 mmHg. This represents a normal heart rate and a normal blood pressure response to Regadenoson. The test was stopped due to the protocol. There was no chest discomfort during the test. The patient was in atrial fibrillation for the duration of the test. There were no significant stress induced electrocardiogram changes. NUCLEAR PROCEDURE: The patient was administered 10.8 mCi of intravenous technetium 99m Tetrofosmin at rest for the rest images. The patient was subsequently administered 32.5 mCi of intravenous technetium 99m Tetrofosmin at peak stress for the stress images. Following an appropriate wait after each injection, imaging was obtained. The images were subsequently processed and reformatted in the usual views. Gated imaging was obtained. The image quality was adequate with some gastrointestinal attenuation artifact. CT attenuation correction was used as an adjunct to standard imaging. Both the corrected and uncorrected images were reviewed for interpretation. NUCLEAR RESULTS: There was normal myocardial perfusion in all segments without evidence of infarction or ischemia. There was normal left ventricular chamber size with an end-diastolic volume of 42 mL and an end-systolic volume of 13 mL. There was no evidence of transient ischemic dilatation. The TID ratio was 0.99. There was paradoxical septal motion consistent with a previous sternotomy and a calculated ejection fraction of 69%. IMPRESSION: 1. There was a normal heart rate and blood pressure response to regadenoson. 2. There was no chest discomfort during the test. 3. The patient was in atrial fibrillation for the duration of the test. 4. There were no ECG changes with regadenoson. 5.There was normal myocardial perfusion in all segments without evidence of infarction or ischemia. 6. There was paradoxical septal motion consistent with a previous sternotomy and overall normal left ventricular systolic function with a calculated ejection fraction of 69%. RORY OBB JR, MD Jul 21, 2021 17:57
[2021-06-12] MEDS ORDERED: ANTACID SUSP 30 ML UDC (MYLANTA) PO NR (18:45)
[2021-06-12] MEDS ORDERED: LIDOCAINE 2% VISCOUS 15 ML UDC PO NR (18:45)
[2021-06-12] MEDS ORDERED: PANTOPRAZOLE 40 MG (PROTONIX) TAB PO SCH (21:00)
[2021-06-12] MEDS: ALPRAZolam 0.25 MG (XANAX) TAB PO PRN (23:38)
[2021-06-13] VITALS (11 sets, daily range): BP systolic 95–147; BP diastolic 54–82
[2021-06-13] MEDS ORDERED: ANTACID SUSP 30 ML UDC (MYLANTA) PO PRN (05:15)
[2021-06-13] MEDS ORDERED: FUROSEMIDE 20 MG (LASIX) TAB PO PRN (05:15)
[2021-06-13] MEDS ORDERED: LORazepam 0.5 MG (ATIVAN) TABLET PO PRN (06:00)
[2021-06-13 06:15] LABS: BASOPHILS % (AUTO) 1 % (0-10); EOSINOPHILS # (AUTO) 0.3 10^3/uL (0.0-0.3); EOSINOPHILS % (AUTO) 6 % (0-10); HEMATOCRIT 41 % (35-52); HEMOGLOBIN 13.3 g/dL (11.5-16.0); LYMPHOCYTES % (AUTO) 20 % (12-44); MEAN CORPUSCULAR HEMOGLOBIN 29 pg (25-34); MEAN CORPUSCULAR HGB CONC 32 g/dL (32-36); MEAN CORPUSCULAR VOLUME 91 fL (80-99); MEAN PLATELET VOLUME 9.7 fL (9.0-12.2); MONOCYTES # (AUTO) 0.5 10^3/uL (0.0-1.0); MONOCYTES % (AUTO) 10 % (0-12); NEUTROPHILS # (AUTO) 3.1 10^3/uL (1.8-7.8); NEUTROPHILS % (AUTO) 63 % (42-75); PLATELET COUNT 234 10^3/uL (130-400); WHITE BLOOD COUNT 4.9 10^3/uL (4.3-11.0)
[2021-06-13 06:22] LABS: ALBUMIN 3.6 GM/DL (3.2-4.5)
[2021-06-13 06:23] LABS: POTASSIUM 3.6 MMOL/L (3.6-5.0)
[2021-06-13 06:24] LABS: CALCIUM 8.6 MG/DL (8.5-10.1)
[2021-06-13 06:25] LABS: INR 2.2 (0.8-1.4)
[2021-06-13 06:27] LABS: BILIRUBIN,TOTAL 0.7 MG/DL (0.1-1.0)
[2021-06-13 06:29] LABS: CREATININE SERUM 1.03 MG/DL (0.60-1.30)
[2021-06-13] MEDS ORDERED: ARTIFICAL TEARS 0.4 ML UNIT DOSE (REFRESH PLUS) OU PRN (06:30)
[2021-06-13] MEDS ORDERED: LEVOTHYROXINE 150 MCG (LEVOTHROID) TAB PO SCH (07:00)
[2021-06-13] MEDS: FAMOTIDINE 20 MG (PEPCID) TABLET PO SCH (08:36)
[2021-06-13] MEDS: dilTIAZem120 MG (CARDIZEM CD) CAP PO SCH (08:37)
[2021-06-13] MEDS: PANTOPRAZOLE 20 MG TABLET (PROTONIX) PO SCH ×2 (08:37→15:43)
[2021-06-13] MEDS ORDERED: amLODIPine 5 MG (NORVASC) TAB PO SCH (09:00)
[2021-06-13] MEDS ORDERED: VITAMIN D3 25 MCG (1,000 UNITS) TABLET PO SCH (09:00)
[2021-06-13] MEDS ORDERED: lisINopril 20 MG (PRINIVIL) TABLET PO SCH (09:00)
[2021-06-13] MEDS ORDERED: ASCORBIC ACID (VIT C) 500 MG TABLET PO SCH (09:00)
[2021-06-13] MEDS ORDERED: MEMANTINE 5 MG (NAMENDA) TABLET PO SCH (09:00)
--- NOTE | 2021-06-13 10:50 | Progress Note - Cardiology ---
Cardiology SOAP Progress Note Subjective: Primary Billing Analyst: Dr. Pinto at [facility] in [place], [place] Sitting up in bed Pleasant No c/o CP, SOB or palpitations this morning Awaiting endoscopy Objective: I&O/Vital Signs Weight (Pounds): 134 Weight (Ounces): 4.8 Weight (Calculated Kilograms): 60.470595 Constitutional: AAO x 3, well-developed, well-nourished Respiratory: No accessory muscle use, No respiratory distress; chest expansion is symmetric, chest is bilaterally symmetric, lungs clear to auscultation Cardiovascular: irregularly irregular; No JVD; S1 and S2 Gastrointestional: No tender; soft, audible bowel sounds Extremities: no lower extremity edema bilateral Neurologic/Psychiatric: grossly intact (moves all extremities) Skin: No rash on exposed areas, No ulcerations on exposed areas Results/Procedures: Labs A/P: Assessment: Chest pain of undetermined etiology - MPI of 06-12-[address] Khalil showed no evidence of ischemia or infarction; LVEF 69%; a-fib throughout the study Permanent atrial fibrillation - rate controlled - OAC with warfarin - managed by her PCP - ILR monitor implanted on 06/04/[address] Rodriguez Mitral regurgitation - H/O mitral valve repair in 2007 - Echocardiogram in 2017 at [facility] showed: Mitral ring prosthesis with no stenosis however moderate mitral regurgitation was noted - Echocardiogram of 06-12-[address] Khalil showed LVEF 60-65%. Mild concentric hypertrophy; mild MR; mild to mod AoR; mod TR Essential hypertension - Continue current regimen Mixed hyperlipidemia - continue statin Gastroesophageal reflux disease - EGD planned for later today CKD - follows with Dr. Haddad Plan: Dr. Khalil notes have been reviewed in detail Chest pain of undetermined etiology, does not appear cardiac in origin based on aforementioned testing Plan is for EGD by Dr. Krishnamurthy later today - continue PPI Continue OAC with warfarin - managed by her PCP as out pt Continue home medications of Amiodarone and Cardizem for chronic a-fib Advised continued f/u as out pt with Dr. 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
[2021-06-13] MEDS ORDERED: DILT-27 PO (11:17)
--- NOTE | 2021-06-13 11:17 | Discharge Summary ---
Discharge Summary Hospital Course Was the Problem List Reviewed?: Yes Problems/Dx: (1) Chest pain Status: Acute (2) Gastroesophageal reflux disease without esophagitis (3) Mixed hyperlipidemia (4) Permanent atrial fibrillation (5) Mitral regurgitation (6) Essential hypertension Hospital Course Date of Admission: Jun 11, 2021 at 22:15 Admission Diagnosis : Family Physician/Provider: Angelica Beard MD Date of Discharge: 06/13/21 Discharge Diagnosis: Chest pain with negative stress test, chronic atrial fibrillation, dysphagia status post EGD Hospital Course: Hospital Course: Pt had an uneventful hospital course she came in with chest pressure, underwent stress test revealing no reversible ischemia. EGD performed by Dr. Krishnamurthy and pt was deemed stable for discharge. All medications were reviewed. Labs and Pending Lab Test: Laboratory Tests 06/13/21 05:35: White Blood Count 4.9, Red Blood Count 4.52, Hemoglobin 13.3, Hematocrit 41, Mean Corpuscular Volume 91, Mean Corpuscular Hemoglobin 29, Mean Corpuscular Hemoglobin Concent 32, Red Cell Distribution Width 14.9H, Platelet Count 234, Mean Platelet Volume 9.7, Immature Granulocyte % (Auto) 0, Neutrophils (%) (Auto) 63, Lymphocytes (%) (Auto) 20, Monocytes (%) (Auto) 10, Eosinophils (%) (Auto) 6, Basophils (%) (Auto) 1, Neutrophils # (Auto) 3.1, Lymphocytes # (Auto) 1.0, Monocytes # (Auto) 0.5, Eosinophils # (Auto) 0.3, Basophils # (Auto) 0.0, I mmature Granulocyte # (Auto) 0.0, Prothrombin Time 25.0H, INR Comment 2.2H, Sodium Level 139, Potassium Level 3.6, Chloride Level 105, Carbon Dioxide Level 23, Anion Gap 11, Blood Urea Nitrogen 20H, Creatinine 1.03, Estimat Glomerular Filtration Rate 51, BUN/Creatinine Ratio 19, Glucose Level 88, Calcium Level 8.6, Corrected Calcium 8.9, Total Bilirubin 0.7, Aspartate Amino Transf (AST/SGOT) 36H, Alanine Aminotransferase (ALT/SGPT) 45, Alkaline Phosphatase 83, Total Protein 6.0L, Albumin 3.6 Home Meds Active Reported Warfarin Sodium 3 Mg Tablet 3 Mg PO WE,THU @HS Mylanta Suspension (Al Hydrox/Mg Hydrox/Simethicone) 30 Ml Oral.susp 30 Ml PO QID PRN Refresh Optive Eye Drops (Carboxymethylcellulos/Glycerin) 15 Ml Drops 1-2 Drops OU PRN PRN Vitamin D3 (Cholecalciferol (Vitamin D3)) 25 Mcg Capsule 25 Mcg PO DAILY Vitamin C (Ascorbic Acid) 500 Mg Capsule 500 Mg PO DAILY Estradiol 42.5 Gm Cream.appl 0.5 Applic VG HS Amlodipine Besylate 5 Mg Tablet 5 Mg PO DAILY Pacerone (Amiodarone HCl) 200 Mg Tablet 200 Mg PO HS Ativan (Lorazepam) 1 Mg Tablet 0.5 Mg PO HS PRN TAKES OF A 1MG TAB Warfarin Sodium 1 Mg Tablet 1 Mg PO CHAIREZ,MO,,TH,SA @HS Euthyrox (Levothyroxine Sodium) 150 Mcg Tablet 150 Mcg PO DAILY Furosemide 20 Mg Tablet 20 Mg PO DAILY PRN Pantoprazole Sodium 20 Mg Tablet.dr 20 Mg PO BID Tramadol HCl 50 Mg Tablet 50 Mg PO TID PRN Memantine HCl 5 Mg Tablet 5 Mg PO DAILY Atorvastatin Calcium 20 Mg Tablet 20 Mg PO DAILY Lisinopril 20 Mg Tablet 20 Mg PO BID Assessment/Pt Instructions [facility] in 1 week Discharge Planning: <30 minutes discharge planning Discharge Physical Examination Vital Signs Vital Signs Date Time Temp Pulse Resp B/P (MAP) Pulse Ox O2 Delivery O2 Flow Rate FiO2 06/13/21 08:00 Room Air 06/13/21 07:44 36.2 60 16 121/72 (88) 98 06/11/21 23:59 21 General Appearance: No Apparent Distress, WD/WN Allergies: Coded Allergies: Sulfa (Sulfonamide Antibiotics) (Unverified Allergy, Unknown, 06/13/21) acetaminophen (Verified Allergy, Unknown, 10/10/17) hydrocodone (Verified Allergy, Unknown, 10/10/17) Discharge Summary Date of Admission Jun 11, 2021 at 22:15 Date of Discharge Discharge Date: Jun 13, 2021 Admission Diagnosis Assessment: Chest pain Chronic atrial fibrillation Dysphagia Former smoker Hypertension Hyperlipidemia Discharge Diagnosis Stress test EGD (1) Chest pain Status: Acute (2) Gastroesophageal reflux disease without esophagitis (3) Mixed hyperlipidemia (4) Permanent atrial fibrillation (5) Mitral regurgitation (6) Essential hypertension LOUISE CLEVELAND DO Jun 13, 2021 11:17
[2021-06-13] MEDS ORDERED: NS IV 500 ML 500 ML ONE (14:20)
[2021-06-13] MEDS ORDERED: LIDOCAINE JELLY 2% 6 ML SYRINGE ONE (14:21)
[2021-06-13] MEDS ORDERED: HURRICAINE EXT TUBE (BENZOCAINE) ONE (14:21)
[2021-06-13] MEDS ORDERED: fentaNYL INJ 100 MCG/2 ML AMP ONE (14:22)
[2021-06-13] MEDS ORDERED: MIDAZOLAM 5 MG/5 ML (VERSED) VIAL ONE (14:22)
--- NOTE | 2021-06-13 14:34 | Progress Note-Post Operative ---
Post-Operative Progess Note Surgeon (s)/Primer Inserting Machine Operator (s) Surgeon ALTAF PENALOZA MD Primer Inserting Machine Operator: none Pre-Operative Diagnosis epigastric and substernal chest pain Post-Operative Diagnosis reflux esophagitis(stage 2), moderate HH(3cm), moderate gastritis, Procedure & Operative Findings Date of Procedure 06/13/21 Procedure Performed/Findings EGD with bx. Anesthesia Type cs Estimated Blood Loss Estimated blood loss (mL): minimal Specimens/Packing Specimens Removed ge jxn, antrum ALTAF PENALOZA MD Jun 13, 2021 14:34
[2021-06-13] MEDS ORDERED: MIDAZOLAM 5 MG/5 ML (VERSED) VIAL IV ONE (15:30)
[2021-06-13] MEDS ORDERED: fentaNYL INJ 100 MCG/2 ML AMP IVP ONE (15:30)
[2021-06-13] MEDS ORDERED: NS IV 500 ML 500 ML IV PRN (15:30)
[2021-06-13] MEDS ORDERED: LIDOCAINE JELLY 2% 6 ML SYRINGE MM PRN (15:30)
[2021-06-13] MEDS ORDERED: HURRICAINE EXT TUBE (BENZOCAINE) XX PRN (15:30)
--- NOTE | 2021-06-13 16:19 | OPERATIVE REPORT ---
DATE OF SERVICE: 06/13/2021 ADMITTING PHYSICIAN: Dr. Cash. ATTENDING PRIMARY CARE PHYSICIAN: Dr. Beard. PREOPERATIVE DIAGNOSES: Epigastric and substernal chest pain. POSTOPERATIVE DIAGNOSES: Reflux esophagitis stage II, moderate to large size hiatal hernia approximately 4 cm in size. Moderate gastritis. No distal obstructions. PROCEDURE: EGD with biopsy. SURGEON: Altaf Krishnamurthy MD. ANESTHESIA: Conscious sedation. ESTIMATED BLOOD LOSS: Minimal. FINDINGS: Reflux esophagitis stage II, moderate to large size hiatal hernia approximately 4 cm in size. Moderate gastritis. No distal obstructions. DISPOSITION: The patient tolerated the procedure well. INDICATIONS: The patient is an 86-year-old female who presented with chest pain. She does have a significant past medical history including atrial fibrillation, mitral valve disease as well as hypertension, hyperlipidemia and gastroesophageal reflux disease. She moved here from [place] in the beginning of April. She woke up with substernal chest tightness as well as did feel short of breath. She also did felt nauseas; however, no vomiting. She was admitted and cardiology was consulted and underwent a cardiac workup, which was negative. Upon further questioning, she does report some substernal burning sensation as well as a longstanding history of gastroesophageal reflux disease. DESCRIPTION OF PROCEDURE: The patient was brought to the endoscopy suite, laid in the left lateral decubitus position. After adequate IV pain and sedative medications and conscious sedation anesthesia, the mouthpiece was applied. The endoscope was placed in the mouth, visualizing the pharynx and hypopharyngeal region. Vocal cords, epiglottis and vallecula identified and appeared to be normal. The endoscope was then gently intubated. esophageal opening and esophagus insufflated. The endoscope was then advanced through the first, second and third portions of esophagus at the level of the GE junction, reflux esophagitis stage II identified. The endoscope was then gently abated esophageal opening and esophagus insufflated. The endoscope was then advanced to the first, second and third portion of esophagus at the level of GE junction, a reflux esophagitis stage II identified. The GE junction was intrathoracic consistent with a hiatal hernia. No ulcers or strictures were identified in this region. A biopsy was taken with forceps with visualization of good hemostasis. The endoscope was then advanced in the stomach and endoscope retroflexed, visualizing a moderate to large size hiatal hernia approximately 4 cm in size. This was the likely cause of her chest discomfort as well as the intermittent shortness of breath. There was a moderate severity gastritis towards the stomach antrum. No formal ulcerations, polyps, or any neoplasms. A biopsy was taken of the stomach antrum with visualization of good hemostasis. The endoscope was then advanced to the pylorus and the first and second portion of the duodenum, which appeared normal with no distal obstructions. Endoscope was then slowly withdrawn while taking a second look and suctioning of residual air with no additional findings. The patient tolerated the procedure well. We will have her continue with medical management with a PPI acid drop board worker on a daily basis. She also needs to proceed with the necessary lifestyle and diet accommodation including small and more frequent meals, avoidance of eating at night as well as head elevation while lying supine. She also needs to avoid caffeinated beverages, spicy, greasy and acidic foods. The root cause of her symptomatology is a hiatal hernia; however, due to her other medical comorbidities at this time, any surgical repair would be risk prohibitive. Job ID: [id number] DocumentID: [id number] Dictated Date: 06/13/2021 14:45:35 Language Path Date: 06/13/2021 16:18:12 Dictated By: ALTAF KRISHNAMURTHY MD
[2021-06-13] MEDS ORDERED: AMIODARONE 200 MG (CORDARONE) TAB PO SCH (21:00)
[2021-06-13] MEDS ORDERED: warFARin 1 MG (COUMADIN) TAB PO SCH (21:00)
[2021-06-13] MEDS ORDERED: ESTRADIOL VAGINAL CREAM 42.5 GM (ESTRACE) VG SCH (21:00)
[2021-06-14] MEDS ORDERED: warFARin 3 MG (COUMADIN) TAB PO SCH (21:00)
== END 2021-06-13 16:45 | disposition home or self-care (01) ==
LOC: EDUNIT# 16:48 → ER 16:50 → CSD 22:15 → UNDOADMOB 22:15 → CSD 22:42 → SDC 23:08 → CSD 23:08 → UNDODISOB 06-13 16:45 → SDC 06-13 16:45
PROVIDERS: ATTEND Internal Medicine
DX: K29.50 Unspecified chronic gastritis without bleeding (principal); K21.00 Gastro-esophageal reflux disease with esophagitis, without bleeding; K44.9 Diaphragmatic hernia without obstruction or gangrene; R07.9 Chest pain, unspecified; E78.00 Pure hypercholesterolemia, unspecified; I48.20 Chronic atrial fibrillation, unspecified; I13.10 Hypertensive heart and chronic kidney disease without heart failure, with stage 1 through stage 4 chronic kidney disease, or unspecified chronic kidney disease; N18.6 End stage renal disease; E03.9 Hypothyroidism, unspecified; Z87.891 Personal history of nicotine dependence; Z79.890 Hormone replacement therapy; Z79.01 Long term (current) use of anticoagulants; Z79.899 Other long term (current) drug therapy; Z90.710 Acquired absence of both cervix and uterus; Z95.2 Presence of prosthetic heart valve; Z90.49 Acquired absence of other specified parts of digestive tract; Z20.822 Contact with and (suspected) exposure to COVID-19
CPT/HCPCS: 43239; 71045; 78452; 80048; 80053 ×2; 83735; 83874; 83880; 84484 ×2; 85025 ×3; 85379; 85610 ×2; 85730; 87636; 88305; 93005 ×2; 93017; 93041; 93306; 94640; 96374; 99284; A9502; G0378; 36415

== ENCOUNTER → 2021-08-07 | Outpatient (CLI) | payer MEDICARE ==
[~2021-08-07] MED LIST changes: +AMIO200T50 PO; +AMLO-250 PO; +ASCO500C17 PO; +CARB15DR2 OU; +CHOL10007 PO; +DILT-27 PO; +ESTR42.511 VG; +FURO20TA4 PO; +LEVO150T96 PO; +LORA-405 PO; +MAG30ORA2 PO; +MEMA5TAB43 PO; +PANT20TA18 PO; +TRAM50TA3 PO; +WARF3TAB56 PO; +WRF1T PO
--- NOTE | 2021-08-07 14:17 | Diagnostic Imaging Report ---
PROCEDURE: US Renal Bilateral. TECHNIQUE: Multiple real-time grayscale images were obtained over the kidneys in various projections bilaterally. INDICATION: Chronic kidney disease, stage III. FINDINGS: Left kidney is surgically absent. Right kidney measures 9.0 x 4.3 x 4.7 cm. Cortical thickness and echogenicity is normal. No calculi are identified. There is no hydronephrosis. Bladder appears to be moderately decompressed. The ureteral jets were not visualized. IMPRESSION: Solitary right kidney. No hydronephrosis is identified. Dictated by: Dictated on workstation # [id number]
== END ==
LOC: RAD 12:00
PROVIDERS: ATTEND Internal Medicine
DX: N18.32 Chronic kidney disease, stage 3b (principal)
CPT/HCPCS: 76770

== ENCOUNTER 2021-08-12 18:44 | Emergency (ER) | payer MEDICARE ==
[~2021-08-12] VITALS: Ht 147 cm; Wt 56.0 kg
[2021-08-12 19:09] LABS: BASOPHILS # (AUTO) 0.1 10^3/uL (0.0-0.1); BASOPHILS % (AUTO) 1 % (0-10); EOSINOPHILS # (AUTO) 0.3 10^3/uL (0.0-0.3); EOSINOPHILS % (AUTO) 4 % (0-10); HEMATOCRIT 40 % (35-52); HEMOGLOBIN 13.3 g/dL (11.5-16.0); LYMPHOCYTES % (AUTO) 18 % (12-44); MEAN CORPUSCULAR HEMOGLOBIN 30 pg (25-34); MEAN CORPUSCULAR HGB CONC 33 g/dL (32-36); MEAN CORPUSCULAR VOLUME 92 fL (80-99); MEAN PLATELET VOLUME 9.6 fL (9.0-12.2); MONOCYTES # (AUTO) 0.6 10^3/uL (0.0-1.0); MONOCYTES % (AUTO) 10 % (0-12); NEUTROPHILS # (AUTO) 3.8 10^3/uL (1.8-7.8); NEUTROPHILS % (AUTO) 66 % (42-75); PLATELET COUNT 252 10^3/uL (130-400); WHITE BLOOD COUNT 5.7 10^3/uL (4.3-11.0)
[2021-08-12 19:24] LABS: ALBUMIN 3.8 GM/DL (3.2-4.5); BILIRUBIN,TOTAL 0.6 MG/DL (0.1-1.0); CALCIUM 8.5 MG/DL (8.5-10.1); CREATININE SERUM 1.31 MG/DL (0.60-1.30); MAGNESIUM 1.7 MG/DL (1.6-2.4); POTASSIUM 4.4 MMOL/L (3.6-5.0)
[2021-08-12 19:29] LABS: INR 3.8 (0.8-1.4); PROTHROMBIN TIME PATIENT 37.6 SEC (12.2-14.7)
[2021-08-12] MEDS ORDERED: ONDANSETRON 4 MG/2 ML (SDV) Z0FRAN IVP ONE (19:30)
[2021-08-12] MEDS ORDERED: FAMOTIDINE 20MG/2ML IV (PEPCID) IVP ONE (19:30)
--- NOTE | 2021-08-12 19:54 | Diagnostic Imaging Report ---
EXAMINATION: Chest 1 view HISTORY: Chest pain COMPARISON: 06/11/2021 FINDINGS: There are median sternotomy wires. There is a valve replacement. Loop recorder projects over the heart. No pleural effusion or pneumothorax. No edema or pneumonia. Heart size is normal IMPRESSION: 1. Clear lungs. Dictated by: Dictated on workstation # [id number]
[2021-08-12 20:53] LABS: FREE T4 (FREE THYROXINE) 1.79 NG/DL (0.70-1.48)
[2021-08-12 22:54] LABS: BILIRUBIN,URINE NEGATIVE (NEGATIVE); CLARITY,URINE CLEAR; COLOR,URINE YELLOW; GLUCOSE, URINE (UA) NEGATIVE (NEGATIVE); KETONES,URINE NEGATIVE (NEGATIVE); LEUKOCYTE ESTERASE ,URINE 1+ (NEGATIVE); NITRITE,URINE NEGATIVE (NEGATIVE); PH,URINE 7.5 (5-9); PROTEIN,URINE NEGATIVE (NEGATIVE)
[2021-08-12 23:00] LABS: BACTERIA,URINE NEGATIVE /HPF; WBC,URINE RARE /HPF
[2021-08-12] MEDS ORDERED: RX-ONDANSETRON 4 MG ODT (ZOFRAN) PPK #4 SL STA (23:54)
--- NOTE | 2021-08-12 23:58 | ED Syncope ---
General Chief Complaint: Trauma-Non Activation Stated Complaint: SYNCOPE Nursing Triage Note: Pt brought by [facility], with 20g in right AC and NS running. Pt reports she was bending over her bathtub when she fell. She denies head or neck injury. Pt alert and oriented x's 4. 1.5in abrasion noted on left wrist. Source of Information: Patient, EMS Exam Limitations: No Limitations History of Present Illness Date Seen by Provider: Aug 12, 2021 Location Injury Occurred: 08/12/21 Allergies and Home Medications Allergies Coded Allergies: Sulfa (Sulfonamide Antibiotics) (Unverified Allergy, Unknown, 06/13/21) acetaminophen (Verified Allergy, Unknown, 10/10/17) hydrocodone (Verified Allergy, Unknown, 10/10/17) Patient Home Medication List Amiodarone HCl (Pacerone) 200 Mg Tablet, 200 MG PO HS, (Reported) Entered as Reported by: TRACI JACOBS on 06/12/21 1014 Amlodipine Besylate (Amlodipine Besylate) 5 Mg Tablet, 5 MG PO DAILY, (Reported) Entered as Reported by: TRACI JACOBS on 06/12/21 1014 Ascorbic Acid (Vitamin C) 500 Mg Capsule, 500 MG PO DAILY, (Reported) Entered as Reported by: TRACI JACOBS on 06/12/21 1014 Atorvastatin Calcium (Atorvastatin Calcium) 20 Mg Tablet, 20 MG PO DAILY, (Reported) Entered as Reported by: RUSSEL CASE on 10/10/17 1139 Carboxymethylcellulos/Glycerin (Refresh Optive Eye Drops) 15 Ml Drops, 1-2 DROPS OU PRN PRN for DRY EYES, (Reported) Entered as Reported by: TRACI JACOBS on 06/12/21 1014 Cholecalciferol (Vitamin D3) (Vitamin D3) 25 Mcg Capsule, 25 MCG PO DAILY, (Reported) Entered as Reported by: TRACI JACOBS on 06/12/21 1014 Diltiazem HCl (Diltiazem 24Hr ER) 120 Mg Cap.er.24h, 120 MG PO DAILY Prescribed by: LOUISE CLEVELAND on 06/13/21 1117 Estradiol (Estradiol) 42.5 Gm Cream.appl, 0.5 APPLIC VG HS, (Reported) Entered as Reported by: TRACI JACOBS on 06/12/21 1014 Furosemide (Furosemide) 20 Mg Tablet, 20 MG PO DAILY PRN for FLUID RETENTION, (Reported) Entered as Reported by: TRACI JACOBS on 06/12/21 1014 Levothyroxine Sodium (Euthyrox) 150 Mcg Tablet, 150 MCG PO DAILY, (Reported) Entered as Reported by: TRACI JACOBS on 06/12/21 1014 Lisinopril (Lisinopril) 20 Mg Tablet, 20 MG PO BID, (Reported) Entered as Reported by: RUSSEL CASE on 10/10/17 1139 Lorazepam (Ativan) 1 Mg Tablet, 0.5 MG PO HS PRN for SLEEP, (Reported) Entered as Reported by: TRACI JACOBS on 06/12/21 1014 Mag Hydrox/Al Hydrox/Simeth (Mylanta Suspension) 30 Ml Oral.susp, 30 ML PO QID PRN for INDIGESTION, (Reported) Entered as Reported by: TRACI JACOBS on 06/12/21 1014 Memantine HCl (Memantine HCl) 5 Mg Tablet, 5 MG PO DAILY, (Reported) Entered as Reported by: TRACI JACOBS on 06/12/21 1014 Ondansetron (Ondansetron Odt) 4 Mg Tab.rapdis, 4 MG PO Q4H PRN for NAUSEA/VOMITING Prescribed by: LISA MEJIA on 08/12/21 2359 Pantoprazole Sodium (Pantoprazole Sodium) 20 Mg Tablet.dr, 20 MG PO BID, (Reported) Entered as Reported by: TRACI JACOBS on 06/12/21 1014 Tramadol HCl (Tramadol HCl) 50 Mg Tablet, 50 MG PO TID PRN for PAIN-MODERATE (5- 7), (Reported) Entered as Reported by: TRACI JACOBS on 06/12/21 1014 Warfarin Sodium (Warfarin Sodium) 1 Mg Tablet, 1 MG PO CHAIREZ,MO,TU,TH,SA @HS, (Reported) Entered as Reported by: TRACI JACOBS on 06/12/21 1014 Warfarin Sodium (Warfarin Sodium) 3 Mg Tablet, 3 MG PO WE,THU @HS, (Reported) Entered as Reported by: TRACI JACOBS on 06/12/21 1014 Past Godvewa-Nzntjm-Umvkrg Hx Patient Social History Tobacco Use?: No Substance use?: No Alcohol Use?: Yes Alcohol type: Wine Alcohol Frequency: Once in a while Pt feels they are or have been: No Immunizations Up To Date First/Initial COVID19 Vaccinat: 01/2021 Second COVID19 Vaccination Zan: 01/2021 COVID19 Vaccine Manufacturing Engineer Assembly: Luciano Seasonal Allergies Seasonal Allergies: No Past Medical History Surgery/Hospitalization HX: CARDIAC, NEPHRECTOMY, HYSTERECTOMY Surgeries: Yes ( L KIDNEY REMOVED) Hysterectomy, Orthopedic, Renal, Valve Replacement Respiratory: No Cardiac: Yes (MITRAL VALVE REPAIR/IMPLANT THAT MONITOR A FIB) Atrial Fibrillation, High Cholesterol, Hypertension, Valvular Heart Disease Neurological: No CREDENTIALING SPECIALIST History: Hysterectomy Genitourinary: No Gastrointestinal: Yes (brat diet) Gastroesophageal Reflux Musculoskeletal: No Endocrine: Yes Hypothyroidsim HEENT: No Cancer: No Kidney Psychosocial: No Integumentary: No Physical Exam Vital Signs Vital Signs - First Documented Capillary Refill : Less Than 3 Seconds Height, Weight, BMI Height: 5'0.00" Weight: 134lbs. 4.8oz. [id number]; 25.00 BMI Method:Stated Progress/Results/Core Measures Results/Orders Lab Results Laboratory Tests Test 08/12/21 18:50 08/12/21 22:31 08/12/21 22:39 Range/Units White Blood Count 5.7 4.3-11.0 10^3/uL Red Blood Count 4.38 3.80-5.11 10^6/uL Hemoglobin 13.3 11.5-16.0 g/dL Hematocrit 40 35-52 % Mean Corpuscular Volume 92 80-99 fL Mean Corpuscular Hemoglobin 30 25-34 pg Mean Corpuscular Hemoglobin Concent 33 32-36 g/dL Red Cell Distribution Width 13.6 10.0-14.5 % Platelet Count 252 130-400 10^3/uL Mean Platelet Volume 9.6 9.0-12.2 fL Immature Granulocyte % (Auto) 0 % Neutrophils (%) (Auto) 66 42-75 % Lymphocytes (%) (Auto) 18 12-44 % Monocytes (%) (Auto) 10 0-12 % Eosinophils (%) (Auto) 4 0-10 % Basophils (%) (Auto) 1 0-10 % Neutrophils # (Auto) 3.8 1.8-7.8 10^3/uL Lymphocytes # (Auto) 1.0 1.0-4.0 10^3/uL Monocytes # (Auto) 0.6 0.0-1.0 10^3/uL Eosinophils # (Auto) 0.3 0.0-0.3 10^3/uL Basophils # (Auto) 0.1 0.0-0.1 10^3/uL Immature Granulocyte # (Auto) 0.0 0.0-0.1 10^3/uL Prothrombin Time 37.6 H 12.2-14.7 SEC INR Comment 3.8 H 0.8-1.4 Activated Partial Thromboplast Time 66 H 24-35 SEC Sodium Level 129 L 135-145 MMOL/L Potassium Level 4.4 3.6-5.0 MMOL/L Chloride Level 97 L 98-107 MMOL/L Carbon Dioxide Level 21 21-32 MMOL/L Anion Gap 11 5-14 MMOL/L Blood Urea Nitrogen 9 7-18 MG/DL Creatinine 1.31 H 0.60-1.30 MG/DL Estimat Glomerular Filtration Rate 39 BUN/Creatinine Ratio 7 Glucose Level 107 H 70-105 MG/DL Calcium Level 8.5 8.5-10.1 MG/DL Corrected Calcium 8.7 8.5-10.1 MG/DL Magnesium Level 1.7 1.6-2.4 MG/DL Total Bilirubin 0.6 0.1-1.0 MG/DL Aspartate Amino Transf (AST/SGOT) 70 H 5-34 U/L Alanine Aminotransferase (ALT/SGPT) 72 H 0-55 U/L Alkaline Phosphatase 110 40-136 U/L Myoglobin 243.4 H 10.0-92.0 NG/ML Troponin I < 0.028 < 0.028 <0.028 NG/ML Total Protein 6.0 L 6.4-8.2 GM/DL Albumin 3.8 3.2-4.5 GM/DL Lipase 11 8-78 U/L Thyroid Stimulating Hormone (TSH) 0.72 0.35-4.94 UIU/ML Free Thyroxine 1.79 H 0.70-1.48 NG/DL Urine Color YELLOW Urine Clarity CLEAR Urine pH 7.5 5-9 Urine Specific [place] 1.010 L 1.016-1.022 Urine Protein NEGATIVE NEGATIVE Urine Glucose (UA) NEGATIVE NEGATIVE Urine Ketones NEGATIVE NEGATIVE Urine Nitrite NEGATIVE NEGATIVE Urine Bilirubin NEGATIVE NEGATIVE Urine Urobilinogen 0.2 < = 1.0 MG/DL Urine Leukocyte Esterase 1+ H NEGATIVE Urine RBC (Auto) NEGATIVE NEGATIVE Urine RBC NONE /HPF Urine WBC RARE /HPF Urine Squamous Epithelial Cells 2-5 /HPF Urine Crystals NONE /LPF Urine Bacteria NEGATIVE /HPF Urine Casts PRESENT /LPF Urine Hyaline Casts 5-10 H /LPF Urine Mucus SMALL H /LPF Urine Culture Indicated NO My Orders Orders - LISA JOLLEY MD Cbc With Automated Diff (08/12/21:02) Magnesium (08/12/21:02) Chest 1 View, Ap/Pa Only (08/12/21:02) Ekg Tracing (08/12/21:) Comprehensive Metabolic Panel (08/12/21:) Myoglobin Serum (08/12/21:02) Protime With Inr (08/12/21:02) Partial Thromboplastin Time (08/12/21:02) O2 (08/12/21:02) Monitor-Rhythm Ecg Trace Only (08/12/21:02) Ed Iv/Invasive Line Start (08/12/21 19:02) Lipase (08/12/21 19:02) Troponin I (08/12/21 19:02) Ondansetron Injection (Zofran Injectio (08/12/21 19:30) Famotidine Injection (Pepcid Injection) (08/12/21 19:30) Ua Culture If Indicated (08/12/21 20:16) Thyroid Stimulating Hormone (08/12/21 20:17) Troponin I (08/12/21 23:00) Free T4 (Free Thyroxine) (08/12/21 20:17) Rx-Ondansetron Po (Rx-Zofran Po) (08/12/21 23:54) Medications Given in ED Current Medications Medications Dose Ordered Sig/Robb Route Start Time Stop Time Status Last Admin Dose Admin Famotidine 20 mg ONCE ONCE IVP 08/12/21 19:30 08/12/21 19:31 DC 08/12/21 19:44 20 MG Ondansetron HCl 4 mg ONCE ONCE IVP 08/12/21 19:30 08/12/21 19:31 DC 08/12/21 19:44 4 MG Vital Signs/I&O 08/12/21 08/12/21 08/13/21 18:44 18:44 00:15 Temp 36.6 36.6 Pulse 73 61 72 Resp 18 16 18 B/P (MAP) 116/99 (105) 96/61 (73) 116/73 Pulse Ox 97 97 96 O2 Delivery Room Air Room Air 08/13/21 00:00 Intake Total 100 ml Balance 100 ml Blood Pressure Mean: 73 Initial ECG Impression Date: Aug 12, 2021 Initial ECG Impression Time: 19:17 Initial ECG Rate: 63 Initial ECG Rhythm: A Fib/Flutter Comment Atrial fibrillation with no diagnostic ST elevation or depression. No significant change from prior. No abnormal intervals or axis deviation. Departure Impression Primary Impression: Syncope and collapse Additional Impressions: Hypovolemia Nausea & vomiting Qualified Codes: R11.2 - Nausea with vomiting, unspecified Supratherapeutic INR Disposition: HOME, SELF-CARE Condition: Improved Departure-Patient Inst. Decision time for Depature: 23:56 Referrals: NO,LOCAL PHYSICIAN (PCP/Family) Primary Care Physician Patient Instructions: Syncope (Fainting) Add. Discharge Instructions: Drink plenty of clear liquids to stay well-hydrated. Stay off of the lisinopril as directed earlier today. Follow-up with your primary care provider and cut lace machine operator soon as possible. Call in the morning to arrange follow-up. Use the Zofran (ondansetron) as prescribed for nausea and vomiting. Your INR is elevated at 3.8 today. Skip today's dose of warfarin and seek advice from your prescriber in the morning. Call with questions or concerns. Return to the ER if you have worsening symptoms. All discharge instructions reviewed with patient and/or family. Voiced understanding. Scripts Ondansetron (Ondansetron Odt) 4 Mg Tab.rapdis 4 MG PO Q4H PRN for NAUSEA/VOMITING, #10 TAB Prov: LISA JOLLEY MD 08/12/21 LISA JOLLEY MD Aug 12, 2021 23:57
[2021-08-12] MEDS ORDERED: ONDA4TAB11 PO (23:59)
[2021-08-13 00:15] VITALS: BP 116/73
== END 2021-08-13 00:18 | disposition home or self-care (01) ==
LOC: EDUNIT# 18:44 → ER 18:44
DX: S60.812A Abrasion of left wrist, initial encounter (principal); R55 Syncope and collapse; E86.1 Hypovolemia; R11.2 Nausea with vomiting, unspecified; R79.1 Abnormal coagulation profile; I48.91 Unspecified atrial fibrillation; I10 Essential (primary) hypertension; E78.00 Pure hypercholesterolemia, unspecified; E03.9 Hypothyroidism, unspecified; K21.9 Gastro-esophageal reflux disease without esophagitis; Z79.01 Long term (current) use of anticoagulants; Z79.899 Other long term (current) drug therapy; Z79.890 Hormone replacement therapy; W18.2XXA Fall in (into) shower or empty bathtub, initial encounter
CPT/HCPCS: 36415; 71045; 80053; 81000; 83690; 83735; 83874; 84439; 84443; 84484; 85025; 85610; 85730; 93005; 93041

== ENCOUNTER → 2021-08-23 | Outpatient (CLI) | payer MEDICARE ==
[~2021-08-23] MED LIST changes: +ONDA4TAB11 PO
--- NOTE | 2021-08-23 14:50 | Diagnostic Imaging Report ---
PROCEDURE: CT head without contrast. TECHNIQUE: Multiple contiguous axial images were obtained through the brain without the use of intravenous contrast. Auto Exposure Controls were utilized during the CT exam to meet ALARA standards for radiation dose reduction. INDICATION: Fall and on blood thinners. COMPARISON is made with prior head CT from 10/10/2017. There appears be a hematoma in the high left posterior parietal scalp. No depressed calvarial fracture is identified. The ventricles and sulci are within normal limits. No midline shift is identified. No acute intra-axial or extra-axial hemorrhage is detected. Cisterns are patent. Visualized paranasal sinuses are clear. IMPRESSION: 1. Left high parietal scalp hematoma. 2. No acute intracranial process is detected. Dictated by: Dictated on workstation # [id number]
== END ==
LOC: RAD 14:07
PROVIDERS: ATTEND Nurse Practitioner Family
DX: S00.03XA Contusion of scalp, initial encounter (principal); Z79.01 Long term (current) use of anticoagulants; W19.XXXA Unspecified fall, initial encounter
CPT/HCPCS: 70450

== ENCOUNTER 2022-05-21 13:47 | Outpatient (RCR) | payer MEDICARE ==
[~2022-05-21 13:47] MED LIST changes: -MAGN250T2 PO; +MAGN250T31 PO
== END 2022-05-22 | disposition home or self-care (01) ==
PROVIDERS: ATTEND Pediatrics
DX: Z91.81 History of falling (principal)

== ENCOUNTER 2022-06-16 15:23 | Outpatient (RCR) | payer MEDICARE | END 2022-06-22 | disposition home or self-care (01) | PROVIDERS: ATTEND Pediatrics | DX: Z91.81 History of falling (principal) ==

== ENCOUNTER → 2022-07-23 | Outpatient (RCR) | payer MEDICARE | END | disposition home or self-care (01) | PROVIDERS: ATTEND Pediatrics | DX: Z91.81 History of falling (principal) ==

== ENCOUNTER → 2022-08-22 | Outpatient (RCR) | payer MEDICARE | END | disposition home or self-care (01) | PROVIDERS: ATTEND Pediatrics | DX: R26.81 Unsteadiness on feet (principal); Z91.81 History of falling ==

== ENCOUNTER 2022-09-18 13:47 | Outpatient (RCR) | payer MEDICARE | END 2022-09-18 14:33 | disposition home or self-care (01) | PROVIDERS: ATTEND Pediatrics | DX: Z91.81 History of falling (principal) ==

== ENCOUNTER 2023-04-15 21:15 | Outpatient (CLI) | payer MEDICARE | END 2023-04-16 06:35 | disposition home or self-care (01) | LOC: SLEEP 21:15 | PROVIDERS: ATTEND Pediatrics | DX: G47.9 Sleep disorder, unspecified (principal) | CPT/HCPCS: 95810 ==

== ENCOUNTER 2023-05-17 10:21 | Observation (INO) | payer MEDICARE ==
[~2023-05-17] VITALS: Ht 144 cm; Wt 69.2 kg
--- NOTE | 2023-05-17 10:38 | ED General ---
General Chief Complaint: Chest Pain Stated Complaint: SOA Nursing Triage Note: PT ARRIVED PER EMS PT CO OF WEAKNESS, SOA, THIS AM AND CHEST PAIN @0500 THIS AM 01/30. PT HAS COUGH AT TIMES AND STATES HURTS TO COUGH Source of Information: Patient, EMS Exam Limitations: No Limitations History of Present Illness Date Seen by Provider: May 17, 2023 Time Seen by Provider: 10:28 Initial Comments 88-year-old female presents to the emergency department today for shortness of breath, cough and chest pain. She woke up at 5 or 6 this morning and noted she was coughing and had a pressure in her midsternal region that is constant in nature without any obvious aggravating or alleviating factors. Prior to today she was fairly well. She does have some generalized weakness associated as well. She denies any fevers or chills. No abdominal pain or changes in bowel or bladder habits. History of mitral valve repair but no cardiac stents. All other systems reviewed and negative except documented per HPI. Voice recognition software was used to help create this chart Allergies and Home Medications Allergies Coded Allergies: Sulfa (Sulfonamide Antibiotics) (Unverified Allergy, Unknown, 06/13/21) acetaminophen (Verified Allergy, Unknown, 10/10/17) hydrocodone (Verified Allergy, Unknown, 10/10/17) Patient Home Medication List Home Medication List Reviewed: Yes Amiodarone HCl (Pacerone) 200 Mg Tablet, 200 MG PO HS, (Reported) Entered as Reported by: TRACI JACOBS on 06/12/21 1014 Amlodipine Besylate (Amlodipine Besylate) 5 Mg Tablet, 5 MG PO DAILY, (Reported) Entered as Reported by: TRACI JACOBS on 06/12/21 1014 Ascorbic Acid (Vitamin C) 500 Mg Capsule, 500 MG PO DAILY, (Reported) Entered as Reported by: TRACI JACOBS on 06/12/21 1014 Atorvastatin Calcium (Atorvastatin Calcium) 20 Mg Tablet, 20 MG PO DAILY, (Reported) Entered as Reported by: RUSSEL CASE on 10/10/17 1139 Carboxymethylcellulos/Glycerin (Refresh Optive Eye Drops) 15 Ml Drops, 1-2 DROPS OU PRN PRN for DRY EYES, (Reported) Entered as Reported by: TRACI JACOBS on 06/12/21 1014 Cholecalciferol (Vitamin D3) (Vitamin D3) 25 Mcg Capsule, 25 MCG PO DAILY, (Reported) Entered as Reported by: TRACI JACOBS on 06/12/21 1014 Diltiazem HCl (Diltiazem 24Hr ER) 120 Mg Cap.er.24h, 120 MG PO DAILY Prescribed by: LOUISE CLEVELAND on 06/13/21 1117 Estradiol (Estradiol) 42.5 Gm Cream.appl, 0.5 APPLIC VG HS, (Reported) Entered as Reported by: TRACI JACOBS on 06/12/21 1014 Furosemide (Furosemide) 20 Mg Tablet, 20 MG PO DAILY PRN for FLUID RETENTION, (Reported) Entered as Reported by: TRACI JACOBS on 06/12/21 1014 Levothyroxine Sodium (Euthyrox) 150 Mcg Tablet, 150 MCG PO DAILY, (Reported) Entered as Reported by: TRACI JACOBS on 06/12/21 1014 Lisinopril (Lisinopril) 20 Mg Tablet, 20 MG PO BID, (Reported) Entered as Reported by: RUSSEL CASE on 10/10/17 1139 Lorazepam (Ativan) 1 Mg Tablet, 0.5 MG PO HS PRN for SLEEP, (Reported) Entered as Reported by: TRACI JACOBS on 06/12/21 1014 Mag Hydrox/Al Hydrox/Simeth (Mylanta Suspension) 30 Ml Oral.susp, 30 ML PO QID PRN for INDIGESTION, (Reported) Entered as Reported by: TRACI JACOBS on 06/12/21 1014 Memantine HCl (Memantine HCl) 5 Mg Tablet, 5 MG PO DAILY, (Reported) Entered as Reported by: TRACI JACOBS on 06/12/21 1014 Ondansetron (Ondansetron Odt) 4 Mg Tab.rapdis, 4 MG PO Q4H PRN for NAUSEA/VOMITING Prescribed by: LISA MEJIA on 08/12/21 2359 Pantoprazole Sodium (Pantoprazole Sodium) 20 Mg Tablet.dr, 20 MG PO BID, (Reported) Entered as Reported by: TRACI JACOBS on 06/12/21 1014 Tramadol HCl (Tramadol HCl) 50 Mg Tablet, 50 MG PO TID PRN for PAIN-MODERATE (5- 7), (Reported) Entered as Reported by: TRACI JACOBS on 06/12/21 1014 Warfarin Sodium (Warfarin Sodium) 1 Mg Tablet, 1 MG PO CHAIREZ,MO,TU,TH,SA @HS, (Reported) Entered as Reported by: TRACI JACOBS on 06/12/21 1014 Warfarin Sodium (Warfarin Sodium) 3 Mg Tablet, 3 MG PO WE,THU @HS, (Reported) Entered as Reported by: TRACI JACOBS on 06/12/21 1014 Review of Systems Review of Systems Constitutional: see HPI Past Toiayug-Haocdn-Ehizhy Hx Patient Social History Tobacco Use?: No Substance use?: No Alcohol Use?: No Pt feels they are or have been: No Immunizations Up To Date First/Initial COVID19 Vaccinat: 01/2021 Second COVID19 Vaccination Zan: 01/2021 Third COVID19 Vaccination Date: 01/2021 Seasonal Allergies Seasonal Allergies: No Past Medical History Surgery/Hospitalization HX: CARDIAC, NEPHRECTOMY, HYSTERECTOMY, VALVE REPLACEMENT Surgeries: Yes ( L KIDNEY REMOVED) Hysterectomy, Orthopedic, Renal, Valve Replacement Respiratory: No Cardiac: Yes (MITRAL VALVE REPAIR/IMPLANT THAT MONITOR A FIB) Atrial Fibrillation, High Cholesterol, Hypertension, Valvular Heart Disease 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 4.8oz. 60.369278zz; 25.00 BMI Method:Stated General Appearance: No Apparent Distress, WD/WN Eyes: Bilateral Eye Normal Inspection, Bilateral Eye PERRL, Bilateral Eye EOMI HEENT: Normal ENT Inspection, Pharynx Normal Neck: Full Range of Motion, Normal Inspection, Non Tender, Supple Respiratory: Chest Non Tender, No Accessory Muscle Use, No Respiratory Distress, Other Cardiovascular: Regular Rate, Rhythm, No Edema, Normal Peripheral Pulses, Systolic Murmur Gastrointestinal: No Organomegaly, Soft Extremity: Normal Capillary Refill, Normal Inspection, Normal Range of Motion, Non Tender, No Calf Tenderness Neurologic/Psychiatric: Alert, Oriented x3, Normal Mood/Affect Skin: Normal Color, Warm/Dry Progress/Results/Core Measures Suspected Sepsis SIRS Temperature: Pulse: 65 Respiratory Rate: 14 Laboratory Tests 05/17/23 10:35: White Blood Count 10.1 Blood Pressure 121 /64 Mean: 83 Laboratory Tests 05/17/23 10:35: Creatinine 1.02, Platelet Count 361 Results/Orders Lab Results Laboratory Tests Test 05/17/23 10:35 Range/Units White Blood Count 10.1 4.3-11.0 10^3/uL Red Blood Count 3.47 L 3.80-5.11 10^6/uL Hemoglobin 10.1 L 11.5-16.0 g/dL Hematocrit 33 L 35-52 % Mean Corpuscular Volume 94 80-99 fL Mean Corpuscular Hemoglobin 29 25-34 pg Mean Corpuscular Hemoglobin Concent 31 L 32-36 g/dL Red Cell Distribution Width 15.9 H 10.0-14.5 % Platelet Count 361 130-400 10^3/uL Mean Platelet Volume 9.3 9.0-12.2 fL Immature Granulocyte % (Auto) 0 % Neutrophils (%) (Auto) 69 42-75 % Lymphocytes (%) (Auto) 8 L 12-44 % Monocytes (%) (Auto) 7 0-12 % Eosinophils (%) (Auto) 15 H 0-10 % Basophils (%) (Auto) 1 0-10 % Neutrophils # (Auto) 7.0 1.8-7.8 10^3/uL Lymphocytes # (Auto) 0.8 L 1.0-4.0 10^3/uL Monocytes # (Auto) 0.8 0.0-1.0 10^3/uL Eosinophils # (Auto) 1.5 H 0.0-0.3 10^3/uL Basophils # (Auto) 0.1 0.0-0.1 10^3/uL Immature Granulocyte # (Auto) 0.0 0.0-0.1 10^3/uL Sodium Level 137 135-145 MMOL/L Potassium Level 3.9 3.6-5.0 MMOL/L Chloride Level 105 98-107 MMOL/L Carbon Dioxide Level 24 21-32 MMOL/L Anion Gap 8 5-14 MMOL/L Blood Urea Nitrogen 22 H 7-18 MG/DL Creatinine 1.02 0.60-1.30 MG/DL Estimat Glomerular Filtration Rate 53 BUN/Creatinine Ratio 22 Glucose Level 90 70-105 MG/DL Calcium Level 8.8 8.5-10.1 MG/DL Corrected Calcium 9.2 8.5-10.1 MG/DL Magnesium Level 2.0 1.6-2.4 MG/DL Aspartate Amino Transf (AST/SGOT) 82 H 5-34 U/L Alanine Aminotransferase (ALT/SGPT) 88 H 0-55 U/L Alkaline Phosphatase 153 H 40-136 U/L Troponin I < 0.028 <0.028 NG/ML Total Protein 6.3 L 6.4-8.2 GM/DL Albumin 3.5 3.2-4.5 GM/DL My Orders Orders - BETHOPAL DO Ekg Tracing (05/17/23 10:33) Cbc With Automated Diff (05/17/23 10:35) Magnesium (05/17/23 10:35) Chest 1 View, Ap/Pa Only (05/17/23 10:35) Ekg Tracing (05/17/23 10:35) Comprehensive Metabolic Panel (05/17/23 10:35) O2 (05/17/23 10:35) Monitor-Rhythm Ecg Trace Only (05/17/23 10:35) Ed Iv/Invasive Line Start (05/17/23 10:35) Troponin I [place] (05/17/23 10:35) Aspirin Chewable Tablet (Baby Aspirin Ch (05/17/23 10:45) Fentanyl Inj (Sublimaze Injection) (05/17/23 10:45) Manual Differential (05/17/23 10:35) Furosemide Injection (Lasix Injection) (05/17/23 11:45) Ed Admission (Communication) (05/17/23 11:46) Medications Given in ED Current Medications Medications Dose Ordered Sig/Robb Route Start Time Stop Time Status Last Admin Dose Admin Aspirin 324 mg ONCE ONCE PO 05/17/23 10:45 05/17/23 10:46 DC 05/17/23 10:53 324 MG Fentanyl Citrate 50 mcg ONCE ONCE IVP 05/17/23 10:45 05/17/23 10:46 DC 05/17/23 10:51 50 MCG Vital Signs/I&O 05/17/23 05/17/23 10:25 10:25 Temp 36.2 Pulse 65 Resp 14 B/P (MAP) 121/64 (83) Pulse Ox 91 90 O2 Delivery Nasal Cannula Nasal Cannula O2 Flow Rate 3.00 3.00 Capillary Refill : Less Than 3 Seconds Blood Pressure Mean: 83 ECG Comment Sinus rhythm with a rate of 58 bpm. Normal intervals. Left axis deviation. No ST or T wave abnormalities. No ectopy. No STEMI. Critical Care Note Critical Care Total Time (minutes) 60 Departure Communication (Admissions) Patient is slightly hypoxic 87 to 80% on room air. Started on 2 L via nasal cannula with improvement of 94 to 96%. She had resolution of her shortness of breath. She did have some mid central chest pressure on arrival here. I gave her aspirin her EKG initially is nonischemic on my independent review. Chest pain resolved spontaneously during her emergency department stay. Independently reviewed the chest x-ray which distress. Significant diffuse pulmonary edema. I will 40 mg Lasix IV x1 here. She does take 20 mg p.o. daily. Her renal function is normal though she does have a history of chronic kidney disease and she only has a single kidney. 1145: Spoke to Dr Cleveland, accepts admission. Requests i call cardiology. 1147: Spoke to Dr Rodriguez. No further orders, agrees to consult. Impression Primary Impression: Pulmonary edema Qualified Codes: J81.0 - Acute pulmonary edema Additional Impression: Hypoxia Disposition: ADMITTED INPATIENT Condition: Stable Departure-Patient Inst. Referrals: TRACI CAICEDO DO (PCP) Primary Care Physician [facility] (Family) Primary Care Physician OPAL CAMPOS DO May 17, 2023 10:38
[2023-05-17] MEDS ORDERED: fentaNYL INJ 100 MCG/2 ML AMP IVP ONE (10:45)
[2023-05-17] MEDS ORDERED: ASPIRIN 81 MG CHEW (CHILDREN'S ASA) PO ONE (10:45)
[2023-05-17 11:03] LABS: BASOPHILS # (AUTO) 0.1 10^3/uL (0.0-0.1); BASOPHILS % (AUTO) 1 % (0-10); EOSINOPHILS # (AUTO) 1.5 10^3/uL (0.0-0.3); EOSINOPHILS % (AUTO) 15 % (0-10); HEMATOCRIT 33 % (35-52); HEMOGLOBIN 10.1 g/dL (11.5-16.0); LYMPHOCYTES # (AUTO) 0.8 10^3/uL (1.0-4.0); LYMPHOCYTES % (AUTO) 8 % (12-44); MEAN CORPUSCULAR HEMOGLOBIN 29 pg (25-34); MEAN CORPUSCULAR HGB CONC 31 g/dL (32-36); MEAN CORPUSCULAR VOLUME 94 fL (80-99); MEAN PLATELET VOLUME 9.3 fL (9.0-12.2); MONOCYTES # (AUTO) 0.8 10^3/uL (0.0-1.0); MONOCYTES % (AUTO) 7 % (0-12); NEUTROPHILS % (AUTO) 69 % (42-75); PLATELET COUNT 361 10^3/uL (130-400); WHITE BLOOD COUNT 10.1 10^3/uL (4.3-11.0)
--- NOTE | 2023-05-17 11:10 | Diagnostic Imaging Report ---
INDICATION: Chest pain. COMPARISON: 08/12/2021. DISCUSSION: A single portable upright view of the chest was obtained. 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 Heart is mildly enlarged. Small left pleural effusion. Bilateral mixed interstitial and alveolar infiltrates are noted diffusely, severe, favoring edema over pneumonia. No pneumothorax or osseous abnormality. IMPRESSION: Cardiomegaly with small right pleural effusion and suspected severe pulmonary edema. Dictated by: Dictated on workstation # [id number]
[2023-05-17 11:23] LABS: ALBUMIN 3.5 GM/DL (3.2-4.5); CHLORIDE 105 MMOL/L (98-107); POTASSIUM 3.9 MMOL/L (3.6-5.0); SODIUM 137 MMOL/L (135-145)
[2023-05-17 11:25] LABS: CALCIUM 8.8 MG/DL (8.5-10.1)
[2023-05-17 11:26] LABS: GLUCOSE 90 MG/DL (70-105); TOTAL PROTEIN 6.3 GM/DL (6.4-8.2)
[2023-05-17 11:27] LABS: CARBON DIOXIDE 24 MMOL/L (21-32)
[2023-05-17 11:29] LABS: ALKALINE PHOSPHATASE 153 U/L (40-136); CREATININE SERUM 1.02 MG/DL (0.60-1.30); GFR ESTIMATED 53
[2023-05-17 11:30] LABS: BUN/CREATININE RATIO 22
[2023-05-17 11:32] LABS: ALANINE AMINOTRANSFERASE 88 U/L (0-55)
[2023-05-17] MEDS ORDERED: FUROSEMIDE 40 MG/4 ML INJ (LASIX) IVP ONE (11:45)
--- NOTE | 2023-05-17 11:55 | History & Physical ---
History of Present Illness HPI/Chief Complaint Chief complaint: Acute hypoxic respiratory failure due to pulmonary edema HPI: This is an 88-year-old female clinic patient of [facility] who has a past medical history of Nephrectomy, hypertension, CHF who presented to the ER with shortness of breath and hypoxia. Patient was found to have pulmonary edema on chest x-ray without any evidence of any other infectious process.She has a history of atrial fibrillation maintained on Coumadin for stroke prophylaxis. Currently patient feels like she is breathing better on oxygen she was given Lasix 40 mg IV x1 in the ER. Source: patient, RN/MD, old records Exam Limitations: no limitations Date Seen 05/17/23 Time Seen by a Provider: 12:30 Attending Physician Nick Davis DO PCP Admitting Physician: Attending Physician: Referring Physician Date of Admission Home Medications & Allergies Home Medications Reviewed patient Home Medication Reconciliation performed by pharmacy medication reconciliations drinking water technician and/or nursing. Patients Allergies have been reviewed. Allergies Allergies Coded Allergies Sulfa (Sulfonamide Antibiotics) (Unverified Allergy, Unknown, 06/13/21) hydrocodone (Verified Allergy, Unknown, 10/10/17) Past Sctktbd-Edkjnp-Xqgbsn Hx Past Med/Social Hx: Reviewed Nursing Past Med/Soc Hx, Reviewed and Corrections made Patient Social History Marrital Status: single Employed/Student: retired Alcohol Use: Denies Use Smoking Status: Former Smoker Recent Hopitalizations: No Immunizations Up To Date Date of Pneumonia Vaccine: Nov 09, 2011 Date of Influenza Vaccine: Sep 30, 2017 Seasonal Allergies Seasonal Allergies: No Past Medical History Surgeries: Hysterectomy, Orthopedic, Renal, Valve Replacement Cardiac: Atrial Fibrillation, High Cholesterol, Hypertension, Valvular Heart Disease Hysterectomy Gastrointestinal: Gastroesophageal Reflux Endocrine: Hypothyroidsim Cancer: Kidney Review of Systems Constitutional: see HPI Respiratory: cough, dyspnea on exertion, short of breath Physical Exam Physical Exam Vital Signs Vital Signs - First Documented 05/17/23 10:25 Temp 36.2 Pulse 65 Resp 14 B/P (MAP) 121/64 (83) Pulse Ox 91 O2 Delivery Nasal Cannula O2 Flow Rate 3.00 Capillary Refill : Less Than 3 Seconds Height, Weight, BMI Height: 5'0.00" Weight: 134lbs. 4.8oz. 60.030837pv; 25.00 BMI Method:Stated General Appearance: No Apparent Distress, WD/WN, Chronically ill Eyes: Bilateral Eye Normal Inspection, Bilateral Eye PERRL, Bilateral Eye EOMI HEENT: PERRL/EOMI, Normal ENT Inspection, Pharynx Normal Neck: Full Range of Motion, Normal Inspection, Non Tender, Supple Respiratory: Chest Non Tender, No Accessory Muscle Use, No Respiratory Distress, Crackles, Decreased Breath Sounds, Other Cardiovascular: Regular Rate, Rhythm, No Edema, Normal Peripheral Pulses, Systolic Murmur Gastrointestinal: No Organomegaly, Soft Extremity: Normal Capillary Refill, Normal Inspection, Normal Range of Motion, Non Tender, No Calf Tenderness Neurologic/Psychiatric: Alert, Oriented x3, No Motor/Sensory Deficits, Normal Mood/Affect Skin: Normal Color, Warm/Dry Results Results/Procedures Labs Laboratory Tests 05/17/23 10:35 Patient resulted labs reviewed. Assessment/Plan Admission Diagnosis Assessment: Acute hypoxic respiratory failure Pulmonary edema Volume overload History of nephrectomy due to cancer Chronic kidney disease Chronic elevated liver enzymes Atrial fibrillation History of valve replacement Warfarin for stroke prophylaxis Plan: IV Lasix Monitor creatinine Cardiology consult Echo Supportive care Admission Status: Observation Clinical Quality Measures AMI/AHF: ASA po Prior to arrival: LOUISE Giron DO May 17, 2023 11:55
[2023-05-17 11:59] LABS: BILIRUBIN,TOTAL 0.7 MG/DL (0.1-1.0)
[2023-05-17 12:13] LABS: INR 1.9 (0.8-1.4); PROTHROMBIN TIME PATIENT 22.2 SEC (12.2-14.7)
[2023-05-17 12:23] LABS: ANISOCYTOSIS SLIGHT; BAND NEUTROPHILS 0 %; BASOPHILS % (MANUAL) 0 %; EOSINOPHILS % (MANUAL) 14 %; HYPOCHROMASIA SLIGHT; LYMPHOCYTES % (MANUAL) 6 %; MONOCYTES % (MANUAL) 6 %; NEUTROPHILS % (MANUAL) 74 %; POLYCHROMASIA SLIGHT
[2023-05-17] MEDS ORDERED: LORazepam 0.5 MG (ATIVAN) TABLET PO PRN (13:30)
[2023-05-17] MEDS ORDERED: ONDANSETRON 4 MG (ZOFRAN) ORAL DISSOLVE TAB PO PRN (13:30)
[2023-05-17] MEDS ORDERED: CALCIUM CARBONATE 500 MG (TUMS) TAB.CHEW PO PRN (13:30)
[2023-05-17] MEDS ORDERED: LACTULOSE SYRUP 10GM/15ML (ENULOSE) 30ML UDC PO PRN (13:30)
[2023-05-17] MEDS ORDERED: diphenhydrAMINE 25 MG TAB (BENADRYL) PO PRN (13:30)
[2023-05-17] MEDS ORDERED: diphenhydrAMINE 50 MG/ML INJ (BENADRYL) IVP PRN (13:30)
[2023-05-17] MEDS ORDERED: MILK OF MAGNESIA 400 MG/5 ML 30 ML UDC PO PRN (13:30)
[2023-05-17] MEDS ORDERED: MELATONIN 3 MG TABLET PO PRN (13:30)
[2023-05-17] MEDS ORDERED: ONDANSETRON 4 MG/2 ML (SDV) Z0FRAN IV PRN (13:30)
[2023-05-17] MEDS ORDERED: BISACODYL 10 MG SUPP (DULCOLAX) PR PRN (13:30)
[2023-05-17] MEDS ORDERED: polyethylene glycoL POWDER 17 GM (MIRALAX) PACK PO PRN (13:30)
[2023-05-17] MEDS ORDERED: ACETAMINOPHEN 325 MG TABLET PO PRN (13:30)
[2023-05-17] MEDS ORDERED: ANTACID SUSP 30 ML UDC (MYLANTA) PO PRN (13:30)
[2023-05-17] MEDS ORDERED: HYDROmorphone 2 MG/ML VIAL (DILAUDID) IV PRN (13:30)
[2023-05-17] MEDS ORDERED: ENOXAPARIN 40 MG/0.4 ML (LOVENOX) SYR SC SCH (13:30)
[2023-05-17 14:04] VITALS: BP 121/64
[2023-05-17] MEDS ORDERED: RT-ALBUTEROL SULF 2.5 MG/3 ML PRE-MIX VIAL INH PRN (14:15)
--- NOTE | 2023-05-17 14:26 | Consultation-Cardiology ---
HPI-Cardiology Cardiology Consultation: Date of Consultation 05/17/23 Date of Admission Attending Physician Traci Davis DO Admitting Physician Admitting Physician: Jennifer Cleveland DO Attending Physician: Jennifer Cleveland DO Consulting Physician Ena MICHAELS MD HPI: Time Seen by a Provider: 14:25 Chief Complaint: Shortness of breath This is a 88-year-old lady who presents with shortness of breath, chest discomfort and cough. ER noted hypoxia with oxygen saturation in the 80s. When I saw the patient she was not having any chest discomfort. Patient has history of mitral valve repair, paroxysmal atrial fibrillation. Also complains of weakness. No other complaints. She denies active smoking. Pertinent family history is unremarkable. Review of Systems-Cardiology Review of Systems Constitutional: tiredness Respiratory: shortness of breath Cardiovascular: chest pain All Other Systems Reviewed Negative Unless Noted: Yes HIX-Qchzwg-Hbrfjd Hx Patient Social History Alcohol Use?: No Pt feels they are or have been: No Immunizations Up To Date Date of Pneumonia Vaccine: Nov 09, 2011 Date of Influenza Vaccine: Sep 30, 2017 Past Medical History PMH As described under Assessment. Family Medical History Family Medical History: The patient does not know of any family history of premature coronary artery disease. Allergies and Home Medications Allergies Coded Allergies: Sulfa (Sulfonamide Antibiotics) (Unverified Allergy, Unknown, 06/13/21) hydrocodone (Verified Allergy, Unknown, 10/10/17) Patient Home Medication List Home Medication List Reviewed: Yes Amiodarone HCl (Pacerone) 200 Mg Tablet, 200 MG PO HS, (Reported) Entered as Reported by: TRACI JACOBS on 06/12/21 1014 Amlodipine Besylate (Amlodipine Besylate) 5 Mg Tablet, 5 MG PO DAILY, (Reported) Entered as Reported by: TRACI JACOBS on 06/12/21 1014 Ascorbic Acid (Vitamin C) 500 Mg Capsule, 500 MG PO DAILY, (Reported) Entered as Reported by: TRACI JACOBS on 06/12/21 1014 Atorvastatin Calcium (Atorvastatin Calcium) 20 Mg Tablet, 20 MG PO DAILY, (Reported) Entered as Reported by: RUSSEL CASE on 10/10/17 1139 Carboxymethylcellulos/Glycerin (Refresh Optive Eye Drops) 15 Ml Drops, 1-2 DROPS OU PRN PRN for DRY EYES, (Reported) Entered as Reported by: TRACI JACOBS on 06/12/21 1014 Cholecalciferol (Vitamin D3) (Vitamin D3) 25 Mcg Capsule, 25 MCG PO DAILY, (Reported) Entered as Reported by: TRACI JACOBS on 06/12/21 1014 Diltiazem HCl (Diltiazem 24Hr ER) 120 Mg Cap.er.24h, 120 MG PO DAILY Prescribed by: JENNIFER CLEVELAND on 06/13/21 1117 Estradiol (Estradiol) 42.5 Gm Cream.appl, 0.5 APPLIC VG HS, (Reported) Entered as Reported by: TRACI JACOBS on 06/12/21 1014 Furosemide (Furosemide) 20 Mg Tablet, 20 MG PO DAILY PRN for FLUID RETENTION, (Reported) Entered as Reported by: TRACI JACOBS on 06/12/21 1014 Levothyroxine Sodium (Euthyrox) 150 Mcg Tablet, 150 MCG PO DAILY, (Reported) Entered as Reported by: TRACI JACOBS on 06/12/21 1014 Lisinopril (Lisinopril) 20 Mg Tablet, 20 MG PO BID, (Reported) Entered as Reported by: RUSSEL CASE on 10/10/17 1139 Lorazepam (Ativan) 1 Mg Tablet, 0.5 MG PO HS PRN for SLEEP, (Reported) Entered as Reported by: TRACI JACOBS on 06/12/21 1014 Mag Hydrox/Al Hydrox/Simeth (Mylanta Suspension) 30 Ml Oral.susp, 30 ML PO QID PRN for INDIGESTION, (Reported) Entered as Reported by: TRACI JACOBS on 06/12/21 1014 Memantine HCl (Memantine HCl) 5 Mg Tablet, 5 MG PO DAILY, (Reported) Entered as Reported by: TRACI JACOBS on 06/12/21 1014 Ondansetron (Ondansetron Odt) 4 Mg Tab.rapdis, 4 MG PO Q4H PRN for NAUSEA/VOMITING Prescribed by: LISA MEJIA on 08/12/21 2359 Pantoprazole Sodium (Pantoprazole Sodium) 20 Mg Tablet.dr, 20 MG PO BID, (Reported) Entered as Reported by: TRACI JACOBS on 06/12/21 1014 Tramadol HCl (Tramadol HCl) 50 Mg Tablet, 50 MG PO TID PRN for PAIN-MODERATE (5- 7), (Reported) Entered as Reported by: TRACI JACOBS on 06/12/21 1014 Warfarin Sodium (Warfarin Sodium) 1 Mg Tablet, 1 MG PO CHAIREZ,MO,TU,TH,SA @HS, (Reported) Entered as Reported by: TRACI JACOBS on 06/12/21 1014 Warfarin Sodium (Warfarin Sodium) 3 Mg Tablet, 3 MG PO WE,THU @HS, (Reported) Entered as Reported by: TRACI JACOBS on 06/12/21 1014 Exam Vital Signs Vital Signs Date Time Temp Pulse Resp B/P (MAP) Pulse Ox O2 Delivery O2 Flow Rate FiO2 05/17/23 14:04 36.2 54 90 05/17/23 10:25 14 121/64 (83) Nasal Cannula 3.00 Physical Exam Constitutional: No significant respiratory distress on my examination. Chest: Bilateral breath sounds. CVS: Regular rhythm. S1 plus S2 No significant pedal edema. Labs Laboratory Tests Test 05/17/23 10:35 Range/Units White Blood Count 10.1 4.3-11.0 10^3/uL Red Blood Count 3.47 L 3.80-5.11 10^6/uL Hemoglobin 10.1 L 11.5-16.0 g/dL Hematocrit 33 L 35-52 % Mean Corpuscular Volume 94 80-99 fL Mean Corpuscular Hemoglobin 29 25-34 pg Mean Corpuscular Hemoglobin Concent 31 L 32-36 g/dL Red Cell Distribution Width 15.9 H 10.0-14.5 % Platelet Count 361 130-400 10^3/uL Mean Platelet Volume 9.3 9.0-12.2 fL Immature Granulocyte % (Auto) 0 % Neutrophils (%) (Auto) 69 42-75 % Lymphocytes (%) (Auto) 8 L 12-44 % Monocytes (%) (Auto) 7 0-12 % Eosinophils (%) (Auto) 15 H 0-10 % Basophils (%) (Auto) 1 0-10 % Neutrophils # (Auto) 7.0 1.8-7.8 10^3/uL Lymphocytes # (Auto) 0.8 L 1.0-4.0 10^3/uL Monocytes # (Auto) 0.8 0.0-1.0 10^3/uL Eosinophils # (Auto) 1.5 H 0.0-0.3 10^3/uL Basophils # (Auto) 0.1 0.0-0.1 10^3/uL Immature Granulocyte # (Auto) 0.0 0.0-0.1 10^3/uL Neutrophils % (Manual) 74 % Lymphocytes % (Manual) 6 % Monocytes % (Manual) 6 % Eosinophils % (Manual) 14 % Basophils % (Manual) 0 % Band Neutrophils 0 % Polychromasia SLIGHT Hypochromasia SLIGHT Anisocytosis SLIGHT Prothrombin Time 22.2 H 12.2-14.7 SEC INR Comment 1.9 H 0.8-1.4 Sodium Level 137 135-145 MMOL/L Potassium Level 3.9 3.6-5.0 MMOL/L Chloride Level 105 98-107 MMOL/L Carbon Dioxide Level 24 21-32 MMOL/L Anion Gap 8 5-14 MMOL/L Blood Urea Nitrogen 22 H 7-18 MG/DL Creatinine 1.02 0.60-1.30 MG/DL Estimat Glomerular Filtration Rate 53 BUN/Creatinine Ratio 22 Glucose Level 90 70-105 MG/DL Calcium Level 8.8 8.5-10.1 MG/DL Corrected Calcium 9.2 8.5-10.1 MG/DL Magnesium Level 2.0 1.6-2.4 MG/DL Total Bilirubin 0.7 0.1-1.0 MG/DL Aspartate Amino Transf (AST/SGOT) 82 H 5-34 U/L Alanine Aminotransferase (ALT/SGPT) 88 H 0-55 U/L Alkaline Phosphatase 153 H 40-136 U/L Troponin I < 0.028 <0.028 NG/ML Total Protein 6.3 L 6.4-8.2 GM/DL Albumin 3.5 3.2-4.5 GM/DL ECG Impression ECG Initial ECG Rhythm: Normal Sinus Initial ECG Impression: Nonspecific Changes A/P-Cardiology Assessment/Admission Diagnosis Acute respiratory failure, Chest discomfort, Paroxysmal atrial fibrillation, History of mitral valve repair, On amiodarone therapy, Chronic oral anticoagulation, Anemia, Elevated LFTs Plan Acute respiratory failure, oxygen therapy. IV Lasix. Echocardiogram. Chest discomfort, no further chest pain during my examination. EKG does not show any ST-T wave abnormalities. First troponin is negative. Will request serial troponin. Patient had negative myocardial perfusion imaging done on 06/12/2021. Paroxysmal atrial fibrillation, currently in sinus rhythm. Patient is on amiodarone as well as chronic oral anticoagulation with warfarin. Patient has an implantable loop recorder History of mitral valve repair, On amiodarone therapy, Chronic oral anticoagulation, Anemia, unclear etiology. Will defer to the primary team. Elevated LFTs; could be secondary to amiodarone. However will defer to the primary team. Ena MICHAELS MD May 17, 2023 14:26
[2023-05-17 15:49] VITALS: BP 114/52
[2023-05-17] MEDS ORDERED: warFARin 2.5 MG (COUMADIN) TAB PO SCH (18:00)
[2023-05-17 20:00] VITALS: BP 145/76
[2023-05-17] MEDS: DOCUSATE SODIUM 100 MG (COLACE) CAP PO SCH (21:23)
[2023-05-17] MEDS: SENNOSIDES 8.6 MG (SENOKOT) TAB PO SCH (21:24)
[2023-05-18] VITALS (8 sets, daily range): BP systolic 90–127; BP diastolic 63–79
[2023-05-18 05:03] LABS: BASOPHILS # (AUTO) 0.1 10^3/uL (0.0-0.1); BASOPHILS % (AUTO) 1 % (0-10); EOSINOPHILS # (AUTO) 1.6 10^3/uL (0.0-0.3); EOSINOPHILS % (AUTO) 18 % (0-10); HEMATOCRIT 36 % (35-52); HEMOGLOBIN 11.6 g/dL (11.5-16.0); LYMPHOCYTES # (AUTO) 1.1 10^3/uL (1.0-4.0); LYMPHOCYTES % (AUTO) 12 % (12-44); MEAN CORPUSCULAR HEMOGLOBIN 29 pg (25-34); MEAN CORPUSCULAR HGB CONC 33 g/dL (32-36); MEAN CORPUSCULAR VOLUME 90 fL (80-99); MEAN PLATELET VOLUME 9.1 fL (9.0-12.2); MONOCYTES # (AUTO) 0.8 10^3/uL (0.0-1.0); MONOCYTES % (AUTO) 9 % (0-12); NEUTROPHILS # (AUTO) 5.5 10^3/uL (1.8-7.8); NEUTROPHILS % (AUTO) 60 % (42-75); PLATELET COUNT 337 10^3/uL (130-400); WHITE BLOOD COUNT 9.1 10^3/uL (4.3-11.0)
[2023-05-18 05:14] LABS: INR 1.9 (0.8-1.4); PROTHROMBIN TIME PATIENT 21.7 SEC (12.2-14.7)
[2023-05-18 05:29] LABS: ALBUMIN 3.5 GM/DL (3.2-4.5); CALCIUM 8.9 MG/DL (8.5-10.1); CREATININE SERUM 1.03 MG/DL (0.60-1.30); POTASSIUM 3.7 MMOL/L (3.6-5.0); TOTAL PROTEIN 6.4 GM/DL (6.4-8.2)
[2023-05-18] MEDS: FUROSEMIDE 40 MG/4 ML INJ (LASIX) IV SCH (06:33)
[2023-05-18] MEDS: ASPIRIN 81 MG CHEW (CHILDREN'S ASA) PO SCH (08:03)
[2023-05-18] MEDS: DOCUSATE SODIUM 100 MG (COLACE) CAP PO SCH ×2 (08:03→21:18)
[2023-05-18] MEDS: SENNOSIDES 8.6 MG (SENOKOT) TAB PO SCH ×2 (08:03→21:18)
--- NOTE | 2023-05-18 09:19 | Physical Therapy Evaluation ---
PT Evaluation-General Medical Diagnosis Admission Date May 17, 2023 at 12:35 Medical Diagnosis: hypoxia/pulmonary edema Onset Date: May 17, 2023 Therapy Diagnosis Therapy Diagnosis: debility Height/Weight Height (Feet): 5 Height (Inches): 0.00 Weight (Pounds): 134 Weight (Ounces): 4.8 Precautions Precautions/Isolations: Fall Prevention, Standard Precautions Referral Physician: Shailesh Reason for Referral: Evaluation/Treatment Medical History Pertinent Medical History: Atrial Fib, Heart Failure, HTN, Hypothroidism Additional Medical History nephrectomy Current History ER secondary to weakness/SOA/CP, cough Social History Home: Assisted Living Entry Into Home: Level Entry Prior Prior Level of Function SCALE: Activities may be completed with or without assistive devices. 3-Jrmidienat-ltdwops completes the activity by him/herself with no assistance from a helper. 5-Set-up or Clean-up Assistance-helper sets up or cleans up; patient completes activity. [place] assists only prior to or following the activity. 4-Supervision or Touching Assistance-helper provides verbal cues and/or touching/steadying and/or contact guard assistance as patient completes activity . Assistance may be provided throughout the activity or intermittently. 3-Partial/Moderate Assistance-helper does LESS THAN HALF the effort. [place] lifts, holds or supports trunk or limbs, but provides less than half the effort. 2-Substantial/Maximal Assistance-helper does MORE THAN HALF the effort. [place] lifts or holds trunk or limbs and provides more than half the effort. 2-Mjlxoniwo-diweqq does ALL the effort. Patient does none of the effort to complete the activity. Or, the assistance of 2 or more helpers is required for the patient to complete the activity. If activity was not attempted, code reason: 7-Patient Refused. 9-Not Applicable-not attempted and the patient did not perform the activity before the current illness, exacerbation or injury. 10-Not Attempted due to Environmental Limitations-(lack of equipment, weather restraints, etc.). 88-Not Attempted due to Medical Conditions or Safety Concerns. Bed Mobility: 6 Transfers (B,C,W/C): 6 Gait: 6 Indoor Mobility (Ambulation): Independent Prior Devices Use: Walker (4WW outside/no AD in home) PT Evaluation-Current Subjective Patient agrees to PT. Objective Patient Orientation: Normal For Age Attachments: Oxygen ROM/Strength ROM Lower Extremities bilateral LE WFL Strength Lower Extremities 3+/5 grossly bilateral LE all planes Integumentary/Posture Bowel Incontinence: No Bladder Incontinence: No Posture WFL Neuromuscular (Tone, Coordination, Reflexes) grossly intact Sensory Vision: Wears Glasses Hearing: Impaired Transfers Lying to Sitting/Side of Bed(Q: 6 Sit to Stand (QC): 4 Chair/Rel-ea-Qegxu Xfer(QC): 4 Toilet Transfer (QC): 4 Gait Mode of Locomotion: Walk Anticipated Mode of Locomotion: Walk Walk 10 feet (QC): 4 Walk 50 ft with 2 Turns(QC): 4 Walk 150 ft (QC): 4 Distance: 250' Gait Assistive Device: FWW Comments/Gait Description safe and functional with no deviation Balance Sitting Static: Normal Sitting Dynamic: Normal Standing Static: Normal Standing Dynamic: Normal Assessment/Needs Patient will be seen short term by skilled PT to address functional mobility to ensure safe return to AL at maximum LOF. Rehab Potential: Fair PT [employer] Goals Skilled Nursing Goals PT [employer] Goals Time Frame: May 23, 2023 Roll Left & Right (QC): 6 Sit to Lying (QC): 6 Lying-Sitting on Side/Bed(QC): 6 Sit to Stand (QC): 6 Chair/Dtt-is-Hpibo Xfer(QC): 6 Toilet Transfer (QC): 6 Walk 10 feet (QC): 6 Walk 50ft with 2 Turns (QC): 6 Walk 150 ft (QC): 6 PT Plan Problem List Problem List: Activity Tolerance, Functional Strength Treatment/Plan Treatment Plan: Continue Plan of Care Treatment Plan: Education, Functional Activity Uziel, Functional Strength, Gait, Safety, Therapeutic Exercise, Transfers Treatment Duration: May 23, 2023 Frequency: 5 times per week Estimated Hrs Per Day: .25 hour per day Patient and/or Family Agrees t: Yes Time Time In: 830 Time Out: 850 DATE: May 18, 2023 Total Billed Treatment Time: 20 [facility]IN[facility] PT May 18, 2023 09:19
--- NOTE | 2023-05-18 09:20 | Occupational Therapy Eval ---
OT Evaluation-General/PLF Medical Diagnosis Admission Date May 17, 2023 at 12:35 Medical Diagnosis: Acute hypoxic respiratory failure Onset Date: May 17, 2023 Therapy Diagnosis Therapy Diagnosis: weakness Height/Weight Height (Feet): 5 Height (Inches): 0.00 Weight (Pounds): 134 Weight (Ounces): 4.8 Precautions Precautions/Isolations: Fall Prevention, Standard Precautions Weight Bear Status Weight Bearing Restriction: Full Weight Bearing Referral Physician: MEGHA Referral Reason: Activity Tolerance, Self Care, Evaluation/Treatment Medical History Additional Medical History 88-year-old female clinic patient of [facility] who has a past medical history of Nephrectomy, hypertension, CHF who presented to the ER with shortness of breath and hypoxia. Patient was found to have pulmonary edema on chest x-ray without any evidence of any other infectious process.She has a history of atrial fibrillation maintained on Coumadin for stroke prophylaxis Reviewed History: Yes Social History Home: Assisted Living Current Living Status: Alone Entry Into Home: Level Entry Lives in apartment not [facility] [place] ADL-Prior Level of Function SCALE: Activities may be completed with or without assistive devices. 3-Bleknxhjch-feqmywh completes the activity by him/herself with no assistance from a helper. 5-Set-up or Clean-up Assistance-helper sets up or cleans up; patient completes activity. [place] assists only prior to or following the activity. 4-Supervision or Touching Assistance-helper provides verbal cues and/or touching/steadying and/or contact guard assistance as patient completes activity. Assistance may be provided throughout the activity or intermittently. 3-Partial/Moderate Assistance-helper does LESS THAN HALF the effort. [place] lifts, holds or supports trunk or limbs, but provides less than half the effort. 2-Substantial/Maximal Assistance-helper does MORE THAN HALF the effort. [place] lifts or holds trunk or limbs and provides more than half the effort. 8-Wmyxhgqzn-frkrzw does ALL the effort. Patient does none of the effort to complete the activity. Or, the assistance of 2 or more helpers is required for the patient to complete the activity. If activity was not attempted, code reason: 7-Patient Refused. 9-Not Applicable-not attempted and the patient did not perform the activity before the current illness, exacerbation or injury. 10-Not Attempted due to Environmental Limitations-(lack of equipment, weather restraints, etc.). 88-Not Attempted due to Medical Conditions or Safety Concerns. 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, Tall Toilet DME/Equipment Comments 4ww/seat Drive Self: No OT Current Status Subjective Agreeable to therapy following ECHO Pain Numeric Pain Scale: 0-No Pain Mental Status/Objective Patient Orientation: Person, Place, Time, Situation Attachments: Oxygen (3) Current Glasses/Contacts: Yes Hearing Aids: No Dentures/Partials: Yes Hand Dominance: Right Upper Extremity ROM BUE ROM WFLs Upper Extremity Coordination INTACT Upper Extremity Strength 4/5 BUE grossly ADL-Treatment Eating (QC): 7 (has not ordered meal today) Oral Hygiene (QC): 5 (standing at bathroom lavatory) Shower/Bathe Self (QC): 7 Upper Body Dressing (QC): 5 Lower Body Dressing (QC): 5 On/Off Footwear (QC): 5 Toileting Hygiene (QC): 5 Other Treatments CGA foir ADLS d/t lines and 02 tankl management Education OT Patient Education: Exercise program, Modified ADL techniques, Progress toward Goal/Update tx plan, Purpose of tx/functional activities, Reviewed precautions, Rehab process, Safety issues, Transfer techniques, Use of adapted equipment Teaching Recipient: Patient Teaching Methods: Demonstration, Discussion Response to Teaching: Verbalize Understanding, Return Demonstration OT 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 2=Patient will verbalize/demonstrate understanding of assistive devices/modifications for ADL. 3=Patient will improve strength/tolerance for activity to enable patient to perform ADL's. OT Education/Plan Problem List/Assessment Assessment: No Skilled OT Needs ID'd Discharge Recommendations Plan/Recommendations: Discontinue OT Therapy Discharge Recommendati: Other, See Comments (EVAL ONLY) Treatment Plan/Plan of Care Treatment,Training & Education: Yes Patient would benefit from OT for education, treatment and training to promote independence in ADL's, mobility, safety and/or upper extremity function for ADL's. Plan of Care: OTHER (EVAL ONLY) Treatment Duration: May 18, 2023 Frequency: 1 time per week Agreement: Yes Rehab Potential: Good Time Start Time: 08:30 Stop Time: 08:50 DATE: May 18, 2023 Total Time Billed (hr/min): 20 Billed Treatment Time EVM 20 min GABBY NI OT May 18, 2023 09:20
--- NOTE | 2023-05-18 09:24 | Progress Note ---
Subjective Date Seen by a Provider: May 18, 2023 Time Seen by a Provider: 09:00 Subjective/Events-last exam Patient doing much better Breathing better Weaning O2 We will move to fourth floor Abdominal ultrasound and labs to pursue elevated liver enzymes will be completed Review of Systems General: Fatigue, Malaise Pulmonary: Dyspnea, Cough Objective Exam Last Set of Vital Signs Vital Signs Date Time Temp Pulse Resp B/P (MAP) Pulse Ox O2 Delivery O2 Flow Rate FiO2 05/18/23 08:57 36.3 87 94 32 05/18/23 07:45 22 127/74 (91) Nasal Cannula 3.00 Capillary Refill : Less Than 3 Seconds I&O Intake and Output 05/18/23 00:00 Intake Total 450 ml Balance 450 ml Intake Oral 450 ml # Voids 5 Daily Weight Change No General: Alert, Oriented X3, Cooperative, No Acute Distress Lungs: Clear to Auscultation, Normal Air Movement Heart: Regular Rate, Normal S1, Normal S2, No Murmurs Psych/Mental Status: Mental Status NL, Mood NL Results Lab Laboratory Tests 05/17/23 10:35: White Blood Count 10.1, Red Blood Count 3.47L, Hemoglobin 10.1L, Hematocrit 33L, Mean Corpuscular Volume 94, Mean Corpuscular Hemoglobin 29, Mean Corpuscular Hemoglobin Concent 31L, Red Cell Distribution Width 15.9H, Platelet Count 361, Mean Platelet Volume 9.3, Immature Granulocyte % (Auto) 0, Neutrophils (%) (Auto) 69, Lymphocytes (%) (Auto) 8L, Monocytes (%) (Auto) 7, Eosinophils (%) (Auto) 15H, Basophils (%) (Auto) 1, Neutrophils # (Auto) 7.0, Lymphocytes # (Auto) 0.8L, Monocytes # (Auto) 0.8, Eosinophils # (Auto) 1.5H, Basophils # (Auto) 0.1, Immature Granulocyte # (Auto) 0.0, Neutrophils % (Manual) 74, Lymphocytes % (Manual) 6, Monocytes % (Manual) 6, Eosinophils % (Manual) 14, Basophils % (Manual) 0, Band Neutrophils 0, Polychromasia SLIGHT, Hypochromasia SLIGHT, Anisocytosis SLIGHT, Prothrombin Time 22.2H, INR Comment 1.9H, Sodium Level 137, Potassium Level 3.9, Chloride Level 105, Carbon Dioxide Level 24, Anion Gap 8, Blood Urea Nitrogen 22H, Creatinine 1.02, Estimat Glomerular Filtration Rate 53, BUN/Creatinine Ratio 22, Glucose Level 90, Calcium Level 8.8, Corrected Calcium 9.2, Magnesium Level 2.0, Total Bilirubin 0.7, Aspartate Amino Transf (AST/SGOT) 82H, Alanine Aminotransferase (ALT/SGPT) 88H, Alkaline Phosphatase 153H, Troponin I < 0.028, Total Protein 6.3L, Albumin 3.5 05/18/23 04:55: White Blood Count 9.1, Red Blood Count 3.95, Hemoglobin 11.6, Hematocrit 36, Mean Corpuscular Volume 90, Mean Corpuscular Hemoglobin 29, Mean Corpuscular Hem oglobin Concent 33, Red Cell Distribution Width 15.5H, Platelet Count 337, Mean Platelet Volume 9.1, Immature Granulocyte % (Auto) 0, Neutrophils (%) (Auto) 60, Lymphocytes (%) (Auto) 12, Monocytes (%) (Auto) 9, Eosinophils (%) (Auto) 18H, Basophils (%) (Auto) 1, Neutrophils # (Auto) 5.5, Lymphocytes # (Auto) 1.1, Monocytes # (Auto) 0.8, Eosinophils # (Auto) 1.6H, Basophils # (Auto) 0.1, Immature Granulocyte # (Auto) 0.0, Prothrombin Time 21.7H, INR Comment 1.9H, Sodium Level 137, Potassium Level 3.7, Chloride Level 102, Carbon Dioxide Level 25, Anion Gap 10, Blood Urea Nitrogen 25H, Creatinine 1.03, Estimat Glomerular Filtration Rate 53, BUN/Creatinine Ratio 24, Glucose Level 81, Calcium Level 8.9, Corrected Calcium 9.3, Total Bilirubin 1.0, Aspartate Amino Transf (AST/SGOT) 352H, Alanine Aminotransferase (ALT/SGPT) 242H, Alkaline Phosphatase 502H, Total Protein 6.4, Albumin 3.5 Assessment/Plan Assessment/Plan Assess & Plan/Chief Complaint Assessment: Acute hypoxic respiratory failure Pulmonary edema Volume overload History of nephrectomy due to cancer Chronic kidney disease Chronic elevated liver enzymes-We will obtain ultrasound and lab work-up Atrial fibrillation History of valve replacement Warfarin for stroke prophylaxis subtherapeutic give therapeutic Lovenox to bridge and increase dose to 3 mg Plan: IV Lasix Monitor creatinine Cardiology consult Echo Supportive care Liver enzyme evaluation Clinical Quality Measures AMI/AHF: ASA po Prior to arrival: LOUISE Giron DO May 18, 2023 09:24
[2023-05-18] MEDS ORDERED: ENOXAPARIN 80 MG/0.8 ML (LOVENOX) SYR SC SCH (10:00)
[2023-05-18] MEDS: RT-ALBUTEROL/IPRATROPIUM 3 ML (DUONEB) VIAL INH SCH ×4 (10:42→22:18)
--- NOTE | 2023-05-18 13:58 | Diagnostic Imaging Report ---
PROCEDURE: US Abdomen, limited. TECHNIQUE: Multiple realtime grayscale images were obtained over the abdomen in various projections. INDICATION: Elevated liver function tests. Liver is normal in size at 16.2 cm. The portal vein is patent and shows normal direction of flow. No discrete liver mass is detected. Gallbladder is surgically absent. There is no biliary duct dilatation. Pancreas is unremarkable. Aorta is nonaneurysmal. IVC is patent. Right kidney is without evidence of calculi or hydronephrosis. There is no ascites. IMPRESSION: 1. Status post cholecystectomy. The study is otherwise unremarkable. Dictated by: Dictated on workstation # [id number]
[2023-05-18] MEDS ORDERED: warFARin 3 MG (COUMADIN) TAB PO SCH (18:00)
[2023-05-18 21:16] LABS: HEPATITIS C ANTIBODY C Non-Reactive (Non-Reactive)
[2023-05-18] MEDS ORDERED: AMIODARONE 200 MG (CORDARONE) TAB PO SCH (22:00)
[2023-05-19 03:27] VITALS: BP 126/72
[2023-05-19] MEDS: RT-ALBUTEROL/IPRATROPIUM 3 ML (DUONEB) VIAL INH SCH ×4 (03:37→14:52)
[2023-05-19 06:05] LABS: BASOPHILS # (AUTO) 0.1 10^3/uL (0.0-0.1); BASOPHILS % (AUTO) 1 % (0-10); EOSINOPHILS # (AUTO) 1.2 10^3/uL (0.0-0.3); EOSINOPHILS % (AUTO) 17 % (0-10); HEMATOCRIT 30 % (35-52); HEMOGLOBIN 9.7 g/dL (11.5-16.0); LYMPHOCYTES # (AUTO) 0.9 10^3/uL (1.0-4.0); LYMPHOCYTES % (AUTO) 12 % (12-44); MEAN CORPUSCULAR HEMOGLOBIN 29 pg (25-34); MEAN CORPUSCULAR HGB CONC 33 g/dL (32-36); MEAN CORPUSCULAR VOLUME 88 fL (80-99); MEAN PLATELET VOLUME 8.9 fL (9.0-12.2); MONOCYTES # (AUTO) 0.8 10^3/uL (0.0-1.0); MONOCYTES % (AUTO) 11 % (0-12); NEUTROPHILS # (AUTO) 4.2 10^3/uL (1.8-7.8); NEUTROPHILS % (AUTO) 59 % (42-75); PLATELET COUNT 351 10^3/uL (130-400); WHITE BLOOD COUNT 7.1 10^3/uL (4.3-11.0)
[2023-05-19 06:15] LABS: INR 2.1 (0.8-1.4); PROTHROMBIN TIME PATIENT 23.2 SEC (12.2-14.7)
[2023-05-19 06:23] LABS: ALBUMIN 3.1 GM/DL (3.2-4.5); BILIRUBIN,TOTAL 0.6 MG/DL (0.1-1.0); CALCIUM 8.5 MG/DL (8.5-10.1); CREATININE SERUM 0.95 MG/DL (0.60-1.30); POTASSIUM 3.2 MMOL/L (3.6-5.0); TOTAL PROTEIN 5.8 GM/DL (6.4-8.2)
[2023-05-19] MEDS: FUROSEMIDE 40 MG/4 ML INJ (LASIX) IV SCH (06:32)
[2023-05-19 07:26] VITALS: BP 143/78
[2023-05-19] MEDS: ASPIRIN 81 MG CHEW (CHILDREN'S ASA) PO SCH ×2 (08:54→08:56)
[2023-05-19] MEDS: DOCUSATE SODIUM 100 MG (COLACE) CAP PO SCH (08:54)
[2023-05-19] MEDS: SENNOSIDES 8.6 MG (SENOKOT) TAB PO SCH (08:54)
[2023-05-19] MEDS ORDERED: amLODIPine 5 MG (NORVASC) TAB PO SCH (09:00)
[2023-05-19] MEDS ORDERED: SENNA W/DOCUSATE (SENOKOT S) TABLET PO NR (10:00)
[2023-05-19 12:48] VITALS: BP 131/61
[2023-05-19] MEDS ORDERED: ASPI81TA64 PO (15:00)
[2023-05-19] MEDS ORDERED: POTA8CAP20 PO (15:00)
[2023-05-19] MEDS ORDERED: FURO-125 PO (15:00)
--- NOTE | 2023-05-19 15:00 | Discharge Summary ---
Diagnosis/Chief Complaint Date of Admission May 17, 2023 at 12:35 Date of Discharge Discharge Date: May 19, 2023 Discharge Diagnosis Assessment: Acute hypoxic respiratory failure Pulmonary edema Volume overload History of nephrectomy due to cancer Chronic kidney disease Chronic elevated liver enzymes Atrial fibrillation History of valve replacement Warfarin for stroke prophylaxis Plan: IV Lasix Monitor creatinine Cardiology consult Echo Supportive care Discharge Summary Discharge Physical Examination Allergies: Coded Allergies: Sulfa (Sulfonamide Antibiotics) (Unverified Allergy, Unknown, 06/13/21) hydrocodone (Verified Allergy, Unknown, 10/10/17) Vitals & I&Os Vital Signs Date Time Temp Pulse Resp B/P (MAP) Pulse Ox O2 Delivery O2 Flow Rate FiO2 05/19/23 16:00 35.9 92 18 131/61 98 Room Air 05/19/23 10:39 1.00 05/18/23 08:57 32 General Appearance: Alert, Oriented X3, Cooperative Respiratory: Clear to Auscultation Cardiovascular: Regular Rate Psych/Mental Status: Mental Status NL Hospital Course Was the Problem List Reviewed?: Yes Patient had an uneventful hospital course after she was admitted for volume overload and acute hypoxic respiratory failure due to exacerbation of diastolic congestive heart failure. Solo kidney required close monitoring of creatinine. Oxygen was ultimately weaned. Labs remained stable. Patient was deemed stable for discharge. Labs (last 24 hrs) Laboratory Tests 05/17/23 10:35: White Blood Count 10.1, Red Blood Count 3.47L, Hemoglobin 10.1L, Hematocrit 33L, Mean Corpuscular Volume 94, Mean Corpuscular Hemoglobin 29, Mean Corpuscular Hemoglobin Concent 31L, Red Cell Distribution Width 15.9H, Platelet Count 361, Mean Platelet Volume 9.3, Immature Granulocyte % (Auto) 0, Neutrophils (%) (Auto) 69, Lymphocytes (%) (Auto) 8L, Monocytes (%) (Auto) 7, Eosinophils (%) (Auto) 15H, Basophils (%) (Auto) 1, Neutrophils # (Auto) 7.0, Lymphocytes # (Auto) 0.8L, Monocytes # (Auto) 0.8, Eosinophils # (Auto) 1.5H, Basophils # (Auto) 0.1, Immature Granulocyte # (Auto) 0.0, Neutrophils % (Manual) 74, Lymphocytes % (Manual) 6, Monocytes % (Manual) 6, Eosinophils % (Manual) 14, Basophils % (Manual) 0, Band Neutrophils 0, Polychromasia SLIGHT, Hypochromasia SLIGHT, Anisocytosis SLIGHT, Prothrombin Time 22.2H, INR Comment 1.9H, Sodium Level 137, Potassium Level 3.9, Chloride Level 105, Carbon Dioxide Level 24, Anion Gap 8, Blood Urea Nitrogen 22H, Creatinine 1.02, Estimat Glomerular Filtration Rate 53, BUN/Creatinine Ratio 22, Glucose Level 90, Calcium Level 8.8, Corrected Calcium 9.2, Magnesium Level 2.0, Total Bilirubin 0.7, Aspartate Amino Transf (AST/SGOT) 82H, Alanine Aminotransferase (ALT/SGPT) 88H, Alkaline Phosphatase 153H, Troponin I < 0.028, Total Protein 6.3L, Albumin 3.5 05/18/23 04:55: White Blood Count 9.1, Red Blood Count 3.95, Hemoglobin 11.6, Hematocrit 36, Mean Corpuscular Volume 90, Mean Corpuscular Hemoglobin 29, Mean Corpuscular Hemoglobin Concent 33, Red Cell Distribution Width 15.5H, Platelet Count 337, Mean Platelet Volume 9.1, Immature Granulocyte % (Auto) 0, Neutrophils (%) (Auto) 60, Lymphocytes (%) (Auto) 12, Monocytes (%) (Auto) 9, Eosinophils (%) (Auto) 18H, Basophils (%) (Auto) 1, Neutrophils # (Auto) 5.5, Lymphocytes # (Auto) 1.1, Monocytes # (Auto) 0.8, Eosinophils # (Auto) 1.6H, Basophils # (Auto) 0.1, Immature Granulocyte # (Auto) 0.0, Prothrombin Time 21.7H, INR Comment 1.9H, Sodium Level 137, Potassium Level 3.7, Chloride Level 102, Carbon Dioxide Level 25, Anion Gap 10, Blood Urea Nitrogen 25H, Creatinine 1.03, Estimat Glomerular Filtration Rate 53, BUN/Creatinine Ratio 24, Glucose Level 81, Calcium Level 8.9, Corrected Calcium 9.3, Total Bilirubin 1.0, Aspartate Amino Transf (AST/SGOT) 352H, Alanine Aminotransferase (ALT/SGPT) 242H, Alkaline Phosphatase 502H, Total Protein 6.4, Albumin 3.5 05/18/23 09:41: Gamma Glutamyl Transpeptidase 316H, Hepatitis A IgM Antibody Non-Reactive, Hepatitis B Surface Antigen Non-Reactive, Hepatitis B Core IgM Antibody Non- Reactive, Hepatitis C Antibody Non-Reactive 05/19/23 05:48: White Blood Count 7.1, Red Blood Count 3.36L, Hemoglobin 9.7L, Hematocrit 30L, Mean Corpuscular Volume 88, Mean Corpuscular Hemoglobin 29, Mean Corpuscular Hemoglobin Concent 33, Red Cell Distribution Width 15.3H, Platelet Count 351, Mean Platelet Volume 8.9L, Immature Granulocyte % (Auto) 0, Neutrophils (%) (Auto) 59, Lymphocytes (%) (Auto) 12, Monocytes (%) (Auto) 11, Eosinophils (%) (Auto) 17H, Basophils (%) (Auto) 1, Neutrophils # (Auto) 4.2, Lymphocytes # (Auto) 0.9L, Monocytes # (Auto) 0.8, Eosinophils # (Auto) 1.2H, Basophils # (Auto) 0.1, Immature Granulocyte # (Auto) 0.0, Prothrombin Time 23.2H, INR Comment 2.1H, Sodium Level 136, Potassium Level 3.2L, Chloride Level 100, Carbon Dioxide Level 26, Anion Gap 10, Blood Urea Nitrogen 22H, Creatinine 0.95, Estimat Glomerular Filtration Rate 58, BUN/Creatinine Ratio 23, Glucose Level 94, Calcium Level 8.5, Corrected Calcium 9.2, Total Bilirubin 0.6, Aspartate Amino Transf (AST/SGOT) 215H, Alanine Aminotransferase (ALT/SGPT) 233H, Alkaline Phosphatase 324H, Troponin I < 0.028, Total Protein 5.8L, Albumin 3.1L Pending Labs Laboratory Tests 05/17/23 10:35: White Blood Count 10.1, Red Blood Count 3.47, Hemoglobin 10.1, Hematocrit 33, Mean Corpuscular Volume 94, Mean Corpuscular Hemoglobin 29, Mean Corpuscular Hemoglobin Concent 31, Red Cell Distribution Width 15.9, Platelet Count 361, Mean Platelet Volume 9.3, Immature Granulocyte % (Auto) 0, Neutrophils (%) (Auto) 69, Lymphocytes (%) (Auto) 8, Monocytes (%) (Auto) 7, Eosinophils (%) (Auto) 15, Basophils (%) (Auto) 1, Neutrophils # (Auto) 7.0, Lymphocytes # (Auto) 0.8, Monocytes # (Auto) 0.8, Eosinophils # (Auto) 1.5, Basophils # (Auto) 0.1, Immature Granulocyte # (Auto) 0.0, Neutrophils % (Manual) 74, Lymphocytes % (Manual) 6, Monocytes % (Manual) 6, Eosinophils % (Manual) 14, Basophils % (Manual) 0, Band Neutrophils 0, Polychromasia SLIGHT, Hypochromasia SLIGHT, Anisocytosis SLIGHT, Prothrombin Time 22.2, INR Comment 1.9, Sodium Level 137, Potassium Level 3.9, Chloride Level 105, Carbon Dioxide Level 24, Anion Gap 8, Blood Urea Nitrogen 22, Creatinine 1.02, Estimat Glomerular Filtration Rate 53, BUN/Creatinine Ratio 22, Glucose Level 90, Calcium Level 8.8, Corrected Calcium 9.2, Magnesium Level 2.0, Total Bilirubin 0.7, Aspartate Amino Transf (AST/SGOT) 82, Alanine Aminotransferase (ALT/SGPT) 88, Alkaline Phosphatase 153, Troponin I < 0.028, Total Protein 6.3, Albumin 3.5 05/18/23 04:55: White Blood Count 9.1, Red Blood Count 3.95, Hemoglobin 11.6, Hematocrit 36, Mean Corpuscular Volume 90, Mean Corpuscular Hemoglobin 29, Mean Corpuscular Hemoglobin Concent 33, Red Cell Distribution Width 15.5, Platelet Count 337, Mean Platelet Volume 9.1, Immature Granulocyte % (Auto) 0, Neutrophils (%) (Auto) 60, Lymphocytes (%) (Auto) 12, Monocytes (%) (Auto) 9, Eosinophils (%) (Auto) 18, Basophils (%) (Auto) 1, Neutrophils # (Auto) 5.5, Lymphocytes # (Auto) 1.1, Monocytes # (Auto) 0.8, Eosinophils # (Auto) 1.6, Basophils # (Auto) 0.1, Immature Granulocyte # (Auto) 0.0, Prothrombin Time 21.7, INR Comment 1.9, Sodium Level 137, Potassium Level 3.7, Chloride Level 102, Carbon Dioxide Level 25, Anion Gap 10, Blood Urea Nitrogen 25, Creatinine 1.03, Estimat Glomerular Filtration Rate 53, BUN/Creatinine Ratio 24, Glucose Level 81, Calcium Level 8.9, Corrected Calcium 9.3, Total Bilirubin 1.0, Aspartate Amino Transf (AST/SGOT) 352, Alanine Aminotransferase (ALT/SGPT) 242, Alkaline Phosphatase 502, Total Protein 6.4, Albumin 3.5 05/18/23 09:41: Gamma Glutamyl Transpeptidase 316, Hepatitis A IgM Antibody Non-Reactive, Hepatitis B Surface Antigen Non-Reactive, Hepatitis B Core IgM Antibody Non- Reactive, Hepatitis C Antibody Non-Reactive 05/19/23 05:48: White Blood Count 7.1, Red Blood Count 3.36, Hemoglobin 9.7, Hematocrit 30, Mean Corpuscular Volume 88, Mean Corpuscular Hemoglobin 29, Mean Corpuscular Hemoglobin Concent 33, Red Cell Distribution Width 15.3, Platelet Count 351, Mean Platelet Volume 8.9, Immature Granulocyte % (Auto) 0, Neutrophils (%) (Auto) 59, Lymphocytes (%) (Auto) 12, Monocytes (%) (Auto) 11, Eosinophils (%) (Auto) 17, Basophils (%) (Auto) 1, Neutrophils # (Auto) 4.2, Lymphocytes # (Auto) 0.9, Monocytes # (Auto) 0.8, Eosinophils # (Auto) 1.2, Basophils # (Auto) 0.1, Immature Granulocyte # (Auto) 0.0, Prothrombin Time 23.2, INR Comment 2.1, Sodium Level 136, Potassium Level 3.2, Chloride Level 100, Carbon Dioxide Level 26, Anion Gap 10, Blood Urea Nitrogen 22, Creatinine 0.95, Estimat Glomerular Filtration Rate 58, BUN/Creatinine Ratio 23, Glucose Level 94, Calcium Level 8.5, Corrected Calcium 9.2, Total Bilirubin 0.6, Aspartate Amino Transf (AST/SGOT) 215, Alanine Aminotransferase (ALT/SGPT) 233, Alkaline Phosphatase 324, Troponin I < 0.028, Total Protein 5.8, Albumin 3.1 Discharge Home Medications: Active Scripts Active Potassium Chloride 8 Meq Capsule.er 8 Meq PO DAILY Lasix (Furosemide) 20 Mg Tablet 20 Mg PO BID take at 0800 and 1400 Children's Aspirin (Aspirin) 81 Mg Tab.chew 81 Mg PO DAILY@0900 Ondansetron Odt (Ondansetron) 4 Mg Tab.rapdis 4 Mg PO Q4H PRN Diltiazem 24Hr ER (Diltiazem HCl) 120 Mg Cap.er.24h 120 Mg PO DAILY Reported Warfarin Sodium 3 Mg Tablet 3 Mg PO WE,THU @[facility] Mylanta Suspension (Al Hydrox/Mg Hydrox/Simethicone) 30 Ml Oral.susp 30 Ml PO QID PRN Refresh Optive Eye Drops (Carboxymethylcellulos/Glycerin) 15 Ml Drops 1-2 Drops OU PRN PRN Vitamin D3 (Cholecalciferol (Vitamin D3)) 25 Mcg Capsule 25 Mcg PO DAILY Vitamin C (Ascorbic Acid) 500 Mg Capsule 500 Mg PO DAILY Estradiol 42.5 Gm Cream.appl 0.5 Applic VG HS Amlodipine Besylate 5 Mg Tablet 5 Mg PO DAILY Pacerone (Amiodarone HCl) 200 Mg Tablet 200 Mg PO HS Ativan (Lorazepam) 1 Mg Tablet 0.5 Mg PO HS PRN TAKES OF A 1MG TAB Warfarin Sodium 1 Mg Tablet 1 Mg PO CHAIREZ,MO,,,SA @[facility] Euthyrox (Levothyroxine Sodium) 150 Mcg Tablet 150 Mcg PO DAILY Pantoprazole Sodium 20 Mg Tablet.dr 20 Mg PO BID Tramadol HCl 50 Mg Tablet 50 Mg PO TID PRN Memantine HCl 5 Mg Tablet 5 Mg PO DAILY Atorvastatin Calcium 20 Mg Tablet 20 Mg PO DAILY Lisinopril 20 Mg Tablet 20 Mg PO BID Instructions to patient/family Please see electronic discharge instructions given to patient. Clinical Quality Measures AMI/AHF: ASA po Prior to arrival: LOUISE Giron DO May 19, 2023 15:00
[2023-05-19 16:00] VITALS: BP 131/61
== END 2023-05-19 15:40 | disposition home health service (06) ==
LOC: EDUNIT# 10:21 → ER 10:23 → UNDOADMOB 12:35 → CSD 12:35 → ER 12:40 → CSD 13:43 → 4TH 05-18 13:06 → CSD 05-18 13:06 → UNDODISOB 05-19 15:40
PROVIDERS: ADMIT Internal Medicine; ATTEND Internal Medicine
DX: J96.01 Acute respiratory failure with hypoxia (principal); J81.1 Chronic pulmonary edema; E87.70 Fluid overload, unspecified; N18.9 Chronic kidney disease, unspecified; R74.01 Elevation of levels of liver transaminase levels; I48.0 Paroxysmal atrial fibrillation; D64.9 Anemia, unspecified; Z90.5 Acquired absence of kidney; Z85.520 Personal history of malignant carcinoid tumor of kidney; Z95.2 Presence of prosthetic heart valve; Z79.01 Long term (current) use of anticoagulants; Z79.899 Other long term (current) drug therapy; Z87.891 Personal history of nicotine dependence
CPT/HCPCS: 71045; 76705; 80053 ×3; 80074; 82977; 83735; 84484 ×2; 85007; 85025 ×2; 85027; 85610 ×3; 93005; 93041; 94640 ×4; 94664; 94760; 94761; 97162; 97166; 99284; C8929; 36415; 93306; 96372; 96375; 96376; G0378